=== PATIENT | female | born 1960 | race Caucasian/White ===

== ENCOUNTER 2018-06-13 07:35 | Outpatient (CLI) | payer OTHER, SELFPAY ==
[2018-06-13 09:46] LABS: ALT 38 U/L (12-78); AST 25 U/L (15-37); Alkaline Phosphatase 132 U/L (46-116); Bilirubin, Total 0.6 mg/dL (0.2-1.0); Cholesterol 158 mg/dL (50-200); HDL Cholesterol 44 mg/dL (40-60); LDL CHOLESTEROL 79 mg/dL (<100); Total Protein 7.3 g/dL (6.4-8.2); Triglyceride 264 mg/dL (30-150)
[2018-06-13 10:02] LABS: Bilirubin, Direct 0.11 mg/dL (0.00-0.20)
== END 2018-06-13 07:55 ==
PROVIDERS: PCP Family Medicine; Visit Provider Family Medicine
DX: E78.2 Mixed hyperlipidemia (principal)
CPT/HCPCS: 36415; 80061; 80076; 83721

== ENCOUNTER 2018-06-24 06:10 | Day surgery (SDC) | payer OTHER, SELFPAY ==
[2018-06-24 06:22] VITALS: BP 147/90; PULSE 73; RESP 14; TEMP 36; O2SAT 98
[2018-06-24] MEDS: Lactated Ringers 1,000 ML 30 ML IV (06:42)
--- NOTE | 2018-06-24 07:55 | W.PM.HP.N ---
Date of service: 06/24/18 Time of Service: 07:55 Assessment and Plan (1) Diverticulitis of large intestine without perforation or abscess with bleeding: Current visit: No Status: Resolved Recommended colonoscopy to confirm diverticulosis, rule out malignancy. I reviewed the procedure with Debora, discussed the risks of the procedure with her. All her questions were answered to her satisfaction.New Medications History of Present Illness Chief Complaint: Diverticulitis Narrative: 57 y/o female referred after recent episode of diverticulits. Treated with IV and PO abx with resolution of symptoms. Now doing well. She has no family history of colorectal cancer. Her last colonoscopy was about 5 years ago. Review of Systems Review of Systems All systems reviewed & are unremarkable except as noted in HPI and below Gastrointestinal Reports abdominal pain, Denies bloating, Denies change in bowel habits, Denies constipation, Reports cramping, Denies early satiety, Denies dyspepsia and Denies vomiting PFSH Family History Mother Diabetes Cerebrovascular accident Father Lymphoma Brother Myocardial infarction Brother Brain tumor Medical History Basal cell carcinoma (12/16/15) Diverticulitis Hyperlipidemia Social History household members: none lives independently: Yes number of children: 2 current occupation: [employer] current occupational exposures/hazards: Yes Smoking/Tobacco Use Status: Current every day alcohol intake: current alcohol intake frequency: a few times a week Alcohol type: beer and wine substance use type: does not use Surgical History Colonoscopy - [facility] Home Medications Medication Instructions Recorded Confirmed Type acetaminophen [Pain Relief] 1,000 mg PO QID PRN 11/02/15 06/24/18 History ibuprofen 800 mg PO TID PRN 11/02/15 06/24/18 History Allergies Allergy/AdvReac Type Severity Reaction Status Date / Time bacitracin Allergy Intermediate Skin Rash Verified 06/21/18 13:23 Sulfa (Sulfonamide Allergy RASH, Verified 06/21/18 13:23 Antibiotics) DIFFICULTY BREATHING Exam Const General: cooperative, healthy appearing and comfortable Nutritional Appearance: average body habitus [facility] Head: normocephalic and atraumatic Ears: hearing grossly normal bilaterally Face and sinus: normal facial exam Eyes General: appearance normal, both eyes and all related structures Pupils: PERRL EOM: EOM intact bilaterally Neck Neck: normal visual inspection, trachea midline and supple Chest Chest: normal inspection of the chest Resp Effort & Inspection: normal respiratory effort, able to speak in complete sentences, no audible wheezes, no cough and not labored Cardio Jugular venous pressure: no JVD Rate: regular rate Rhythm: regular rhythm GI Inspection: normal to inspection Palpation: soft, no guarding and nontender Neuro General: alert, awake and oriented x3 Cranial Nerves: CN's II-XI intact bilaterally Cognition: normal cognition Psych Appearance: grossly normal and well kempt Mental Status: mental status grossly normal Attitude: cooperative Judgment: judgment good
--- NOTE | 2018-06-24 08:07 | W.PM.DSUDISC ---
Discharge Plan Disposition Patient Disposition: HOME Condition: Good Discharge Details Reason For Visit: DIVERTICULITIS Attending Provider: Abel Heath Primary Care Provider: Rik Abebe Home Meds and New Rx's Prescriptions: Continue atorvastatin 40 MG tablet 40 mg PO HS 90 Days Qty: 90 RF: 3 ibuprofen 800 MG tablet 800 mg PO TID PRNRF: 0 acetaminophen [Pain Relief] 500 MG tablet 1,000 mg PO QID PRNRF: 0 Discontinued polyethylene glycol 3350 [Miralax] 17 GM powder in packet 17 g PO DAILY Qty: 255 RF: 0 bisacodyl [Dulcolax (bisacodyl)] 5 MG tablet,delayed release (DR/EC) 5 mg PO ONCE Qty: 4 RF: 0 Discharge Instructions Instructions: Colonoscopy (DC) Stand Alone Forms: Colonoscopy Post Instructions, Srini Hammond (DSU) Print Language: Belarusian Activity:: Activity as Tolerated Diet:: As Tolerated Discharge Orders Discharge Orders: Discharge Order (Routine); Ordered 06/24/18 Ordered By: Abel Heath Discharge Data Discharge Date/Time-TO BE ENTERED AT DEPARTURE: 06/24/18 09:34 Discharge Comment: NO ISSUES. PT ESCORTED HOME WITH FRIEND. DS: Diagnosis Discharge Diagnosis (1) Diverticulitis of large intestine without perforation or abscess with bleeding: Status: Resolved
[2018-06-24 09:05] VITALS: BP 132/84; PULSE 62; RESP 14; TEMP 36; O2SAT 99
--- NOTE | 2018-06-24 09:42 | W.COLOREPORT ---
Date of service: 06/24/18 Time of Service: 08:15 Colonoscopy Report Date of procedure: 06/24/18 Pre-op diagnosis general: Diverticuliltis Post-op diagnosis procedure note: other (1. Moderate Sigmoid Diverticulosis. 2. Grade II Hemorrhoids) Procedure: Colonoscopy to the Cecum Surgeon: Abel Heath Anesthesia proc note operative: MAC (Helen Ceja, REGIONAL MANAGER ASA 2, Mallampati II) Estimated blood loss (mL): 0 Pathology: none sent Complications: None Disposition: same day Indications: 57 y/o female referred after recent episode of diverticulits. Treated with IV and PO abx with resolution of symptoms. Now doing well. She has no family history of colorectal cancer. Her last colonoscopy was about 5 years ago. Diverticulitis of large intestine without perforation or abscess without bleeding - K57.32Recommended colonoscopy to confirm diverticulosis, rule out malignancy. I reviewed the procedure with Debora, discussed the risks of the procedure with her. All her questions were answered to her satisfaction. Prep: Miralax/Dulcolax (Prep quality: excellent) Findings: In examining the colon, from the cecum to the anus, the patient was noted to have some moderate sigmoid diverticulosis but no other pathology was identified. Procedure Description: The patient was seen in the day surgery waiting area. Her identification was confirmed, and procedure check. She was then brought to the procedure room. Monitoring for telemetry, blood pressure, oxygen saturation, and end tidal CO2 monitoring were applied. An appropriate time out was performed to confirm, identification, allergies, medication, procedure, was performed. Sedation was titrated for affect by the REGIONAL MANAGER; Once adequate sedation was achieved, I performed a inspection of the external perineum, and a digitial rectal examination. No significant external abnormalities were noted. On digital rectal examination, there was no blood, no masses, good rectal tone. I advanced the colonoscope from the anus to the cecum under direct visualization. The cecum was identified by the ileal-cecal valve, and the appendiceal orifice. The scope was then withdrawn in circumferential manner from the cecum to the rectum. In the colon there is noted to be moderate sigmoid diverticulosis. The scope was then withdrawn into the rectum, and retroflexed. No abnormalities were noted of the rectum, but there was grade 2 hemorrhoids present at the anorectal junction. The scope was then withdrawn, terminating the procedure. There were no complications during the procedure, and the patient tolerated the procedure well. She was returned to the day surgery recovery area in good condition. Plan: No evidence of malignancy or other abnormality other than diverticulosis seen in examining the colon from cecum to anus. No surgical interventions at this time recommended, and next screening colonoscopy in 10 years for colorectal cancer.
--- NOTE | 2018-06-24 09:46 | COLE_ITS ---
Date of service: 06/24/18 Time of Service: 08:15 Colonoscopy Report Date of procedure: 06/24/18 Pre-op diagnosis general: Diverticuliltis Post-op diagnosis procedure note: other (1. Moderate Sigmoid Diverticulosis. 2. Grade II Hemorrhoids) Procedure: Colonoscopy to the Cecum Surgeon: Abel Heath Anesthesia proc note operative: MAC (Helen Ceja, FREEZER UNLOADER ASA 2, Mallampati II) Estimated blood loss (mL): 0 Pathology: none sent Complications: None Disposition: same day Indications: 57 y/o female referred after recent episode of diverticulits. Treated with IV and PO abx with resolution of symptoms. Now doing well. She has no family history of colorectal cancer. Her last colonoscopy was about 5 years ago. Diverticulitis of large intestine without perforation or abscess without bleeding - K57.32Recommended colonoscopy to confirm diverticulosis, rule out malignancy. I reviewed the procedure with Debora, discussed the risks of the procedure with her. All her questions were answered to her satisfaction. Prep: Miralax/Dulcolax (Prep quality: excellent) Findings: In examining the colon, from the cecum to the anus, the patient was noted to have some moderate sigmoid diverticulosis but no other pathology was identified. Procedure Description: The patient was seen in the day surgery waiting area. Her identification was confirmed, and procedure check. She was then brought to the procedure room. Monitoring for telemetry, blood pressure, oxygen saturation, and end tidal CO2 monitoring were applied. An appropriate time out was performed to confirm, identification, allergies, medication, procedure, was performed. Sedation was titrated for affect by the FREEZER UNLOADER; Once adequate sedation was achieved, I performed a inspection of the external perineum, and a digitial rectal examination. No significant external abnormalities were noted. On digital rectal examination, there was no blood, no masses, good rectal tone. I advanced the colonoscope from the anus to the cecum under direct visualization. The cecum was identified by the ileal-cecal valve, and the appendiceal orifice. The scope was then withdrawn in circumferential manner from the cecum to the rectum. In the colon there is noted to be moderate sigmoid diverticulosis. The scope was then withdrawn into the rectum, and retroflexed. No abnormalities were noted of the rectum, but there was grade 2 hemorrhoids present at the anorectal junction. The scope was then withdrawn, terminating the procedure. There were no complications during the procedure, and the patient tolerated the procedure well. She was returned to the day surgery recovery area in good condition. Plan: No evidence of malignancy or other abnormality other than diverticulosis seen in examining the colon from cecum to anus. No surgical interventions at this time recommended, and next screening colonoscopy in 10 years for colorectal cancer.
== END 2018-06-24 09:34 | disposition home or self-care (01) ==
PROVIDERS: PCP Family Medicine; Visit Provider Surgery
PROC: 0DJD8ZZ Inspection of Lower Intestinal Tract, Via Natural or Artificial Opening Endoscopic (ICD-10-PCS; CPT 45378; principal; 2018-06-24 07:30)
DX: K64.1 Second degree hemorrhoids (principal); K57.30 Diverticulosis of large intestine without perforation or abscess without bleeding
CPT/HCPCS: 45378; NC

== ENCOUNTER 2018-08-18 15:48 | Outpatient (REF) | payer OTHER, SELFPAY ==
--- NOTE | 2018-08-18 11:30 | PAPFT_PTH ---
PATIENT: Debora Montgomery LOC: [facility] U#:[id number] AGE/SX: 57/F ROOM: RE08/18/[address]: WILMA Ivy : 1960 BED: DIS: 08/18/2018 SPEC #: [id number] RECD: 08/18/18 17:27 STATUS: SAVANAH REMorena #: [id number] LIZABETH: 08/18/18 11:[address]: Le Alvarez DEPT: COUNT INCLUDES THE [facility] Cytology RECD BY: Sandra Talley ENTERED: 08/18/18 17:27 SP TYPE: PAPFT OTHR DR: Rik Abebe DO Tissues: 1 - CX/ENDOCX FOR PAP SMEARS Procedures: PAP THIN PREP/UVM Screening HPV DNA PROBE Comments: [id number]
== END 2018-08-18 16:08 ==
LOC: LBN 15:48
PROVIDERS: PCP Family Medicine; Visit Provider Nurse Practitioner Family
DX: Z12.4 Encounter for screening for malignant neoplasm of cervix (principal); Z11.51 Encounter for screening for human papillomavirus (HPV)
CPT/HCPCS: 88142; 87624

== ENCOUNTER 2018-08-22 00:56 | Outpatient (CLI) | payer OTHER, SELFPAY ==
--- NOTE | 2018-08-22 10:03 | DI.MAMMO_ITS ---
SYMPTOM/DIAGNOSIS: SCREENING, Z12.31 MAMMOGRAM: 08/22 Mammograms were interpreted according to the usual protocol including computer analysis with CAD system, tomosynthesis and C view imaging. The breasts are of moderate density with fairly symmetrical distribution of fibroglandular tissue. Some focal asymmetric areas of radiodensity are seen bilaterally with no gross interval change in appearance in comparison with examinations including Aug 2017. No new mass or clumped microcalcification seen. CONCLUSION: No specific evidence of malignancy at this time. Routine screening examinations are suggested at yearly intervals in this age group according to the ACS/ACR guidelines. Category 1, breast density category B. MQSA ASSESSMENT OF FINDINGS: Negative. Category 1. Patient will receive a letter notifying them of these results. BI-RADS category B. There are scattered areas of fibroglandular density.
== END 2018-08-22 01:16 ==
PROVIDERS: PCP Family Medicine; Visit Provider Nurse Practitioner Family
DX: Z12.31 Encounter for screening mammogram for malignant neoplasm of breast (principal)
CPT/HCPCS: 77063; 77067

== ENCOUNTER 2019-08-08 10:57 | Outpatient (CLI) | payer OTHER, SELFPAY ==
--- NOTE | 2019-08-08 10:45 | DI.RAD_ITS ---
EXAM: XR KNEE LT 2V AP,LAT INDICATION: pain. COMPARISON: No exams were available for comparison TECHNIQUE: 2D digital imaging was performed. FINDINGS: There is mild narrowing of the medial femorotibial joint space and mild periarticular spurring. Ther e is also spurring at the articular aspect of the patella. No joint effusion IMPRESSION: Mild to moderate degenerative changes.
== END 2019-08-08 11:17 ==
PROVIDERS: PCP Family Medicine; Visit Provider Orthopaedic Surgery
DX: M25.562 Pain in left knee (principal); M17.12 Unilateral primary osteoarthritis, left knee
CPT/HCPCS: 73560

== ENCOUNTER 2019-08-10 06:59 | Outpatient (CLI) | payer OTHER, SELFPAY ==
--- NOTE | 2019-08-10 11:25 | DI.MRI_ITS ---
EXAM: MR LOWER JOINT LT WO CLINICAL HISTORY: loose body, lt knee pain, bone spur, r/o meniscus tear. TECHNIQUE: Multiplanar multisequence MRI was performed. COMPARISON: No exams were available for comparison FINDINGS: Bony signal appears within normal limits except for a few small focal areas of subchondral abnormal s ignal in patella, femur and tibia consistent with degenerative changes. There is marked thinning of the articular cartilage of the medial patellar facet with moderate thinning of trochlear articular ca rtilage and lateral patellar facet cartilage. There is moderate thinning of articular cartilage at t he medial and lateral tibiofemoral joints, most prominent in the central portion of the medial tibiof emoral joint. There is a small knee joint effusion. There is an approximately 3 x 2 cm in diameter Wills's cyst. There is abnormal signal in the posterior horn of the medial meniscus with possible inferior surfacin g nondisplaced tear. Lateral meniscus appears intact. Cruciate ligaments appear intact. No signifi cant collateral ligament injury seen. Apart from the aforementioned degenerative changes of the patellofemoral joint, extensor mechanism is unremarkable. IMPRESSION: Degenerative changes with marked articular cartilage thinning of the medial patellofemoral joint and to a lesser degree the medial and lateral tibiofemoral joints. Suspect nondisplaced posterior horn medial meniscal tear.
== END 2019-08-10 07:19 ==
PROVIDERS: PCP Family Medicine; Visit Provider Orthopaedic Surgery
DX: M25.562 Pain in left knee (principal); M23.42 Loose body in knee, left knee; M17.12 Unilateral primary osteoarthritis, left knee; M25.462 Effusion, left knee; M71.22 Synovial cyst of popliteal space [Baker], left knee
CPT/HCPCS: 73721

== ENCOUNTER 2019-08-24 12:49 | Outpatient (CLI) | payer OTHER, SELFPAY ==
--- NOTE | 2019-08-24 14:03 | W.PREOPHP ---
Date of service: 08/24/19 Assessment and Plan Assessment and plan (1) Internal derangement of left knee: Status: Acute Assessment and plan: Left knee arthroscopy. Details of surgery were discussed with patient as well as risks and pertinent anatomy. All questions were answered. History of Present Illness History of Present Illness Chief Complaint: Left knee pain Narrative: Debora is a 58-year-old female who comes in today for a preop history and physical for a left knee arthroscopy. She has been then with left knee pain for a few months now, and has been persistent despite home exercising. She does not remember any specific trauma to the start of his knee pain, but feels it mostly posteriorly. She also has more pain whenever she is squatting or kneeling, flexing the knee beyond 90 degrees. Also bothers her with going up or down stairs. She works for [employer] and is on her feet a lot during the day, and by the day she has pretty significant knee pain. An x-ray and MRI revealed some bone spurs in the posterior aspect of the knee as well as a Wills's cyst. She was also given an injection in the knee 1-2 weeks ago which really did help her, but only for about 2-[address] this point [address] Del Toro does offer a left knee arthroscopy, and Debora is anxious to proceed. Pertinent Surgical Information Debora does have a history of hyperlipidemia, but has discontinued medical treatment on her own as she did not like the way the medication made her feel. Patient denies history of CVA, TN, angina, asthma, COPD, renal or liver disorders, hepatitis, bleeding disorders, diabetes, immune or thyroid disorders. She has no history of previous general anesthesia surgeries. Review of Systems Constitutional Constitutional: Denies fever(s) ENT Ears, Nose, Mouth, and Throat: Denies dizziness and Denies sore throat Cardiovascular Cardiovascular: Denies chest pain, Denies palpitations and Denies dyspnea Respiratory Respiratory: Denies cough and Denies dyspnea Gastrointestinal Gastrointestinal: Denies abdominal pain, Denies melena, Denies hematochezia, Denies diarrhea, Denies nausea and Denies vomiting Genitourinary Genitourinary: Denies hematuria and Denies dysuria Neurologic Neurologic: Denies dizziness Endocrine Endocrine: Denies palpitations [facility] Medical History Basal cell carcinoma (12/16/15) left lower eyelid Diverticulitis Hyperlipidemia Surgical History (Updated 08/24/19 @ 14:07 by FRANCIS Dior) Colonoscopy - MAC (06/24/18) Dr Heath, results - diverticulitis, repeat 10 years Status post excisional biopsy (Acute) Left eye (skin lesion) Social History (Updated 03/02/19 @ 15:14 by Antonella Esteban LPN) Smoking/Tobacco Use Status: Current every day Tobacco Type: cigarettes Tobacco: How many years used: 20 Alcohol Intake: current Alcohol Intake frequency: a few times a week Alcohol type: beer and wine Drug use: Never Substance use type: does not use Household members: none Housing: house Number of Children: 2 current occupation: [employer] Current gender identity: female What is your relationship status?: Panel score (0-1 are the most socially isolated patients): 0 What type of physical activity do you participate in: other Details: physically active daily Seatbelt use: always Drive intox or ride w/intox 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 truck 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: No Working smoke detector in home: Yes Fire extinguisher in home: Yes Carbon monox detector in home: Yes Do you feel safe at home: Yes Do you feel safe in your relationship?: Yes History History 2 Para 2 Hx # Term Pregnancies Multiple births Hx # Pregnancies Ectopic pregnancies AB induced Hx Number of Living Children AB spontaneous Meds Home Medications and Allergies Home Medications Medication Instructions Recorded Confirmed Type acetaminophen [Pain Relief] 1,000 mg PO QID PRN 11/02/15 08/24/19 History losartan 25 mg tablet 25 mg PO DAILY #90 tab-cap 04/05/19 08/24/19 Rx Allergies Allergy/AdvReac Type Severity Reaction Status Date / Time atorvastatin [From Lipitor] Allergy Severe coughing Verified 08/24/19 13:05 bacitracin Allergy Intermediate Skin Rash Verified 08/24/19 13:05 Sulfa (Sulfonamide Allergy RASH, Verified 08/24/19 13:05 Antibiotics) DIFFICULTY BREATHING Exam HENMT Head: normocephalic and atraumatic General nose exam: no nasal discharge Throat: uvula midline and no uvular edema Other: soft palate rises symmetrically, no erythema Eyes Conjunctivae: conjunctivae normal Sclera: sclerae normal Pupils: PERRL Resp Effort & Inspection: normal respiratory effort Auscultation: clear to auscultation bilaterally and no wheezes Cardio Rate: regular rate Rhythm: regular rhythm Heart Sounds: S1 normal, S2 normal and no murmurs GI Palpation: soft, no hepatosplenomegaly and nontender Auscultation: normal bowel sounds
== END 2019-08-24 13:09 ==
PROVIDERS: PCP Family Medicine; Visit Provider Orthopaedic Surgery
DX: M23.92 Unspecified internal derangement of left knee (principal); Z01.818 Encounter for other preprocedural examination
CPT/HCPCS: NC

== ENCOUNTER 2019-08-28 05:57 | Day surgery (SDC) | payer OTHER, SELFPAY ==
[2019-08-24 13:04] VITALS: BP 130/88; PULSE 84; RESP 16; TEMP 37.1; O2SAT 98
[2019-08-28] VITALS (8 sets, daily range): BP systolic 90–130; BP diastolic 50–88; PULSE 56–84; RESP 14–19; TEMP 36.2–37.1; O2SAT 93–98
[2019-08-28] MEDS: Lactated Ringers 1,000 ML 80 ML IV (07:14)
[2019-08-28] MEDS: ceFAZolin 1 GM/50 ML BAG IVPB (07:30)
[2019-08-28] MEDS: Bupivacaine 0.5% Pres-Free 30 ML VIAL (08:43)
--- NOTE | 2019-08-28 09:02 | PDOC.DSDIS_ITS ---
Discharge Plan Disposition Patient Disposition: HOME Condition: Good Discharge Details Reason For Visit: Arthroscopy L knee Attending Provider: Sae Del Toro Primary Care Provider: Rik Abebe Home Meds and New Rx's Prescriptions: New ibuprofen 800 mg tablet 800 mg PO TID Qty: 30 RF: 0 hydrocodone-acetaminophen 5-325 mg tablet 1 tab PO Q6H PRN (Reason: pain) Qty: 20 RF: 0 Continued losartan 25 mg tablet 25 mg PO DAILY Qty: 90 RF: 3 acetaminophen [Pain Relief] 500 MG tablet 1,000 mg PO QID PRNRF: 0 Discontinued ibuprofen 200 mg Capsule 800 mg PO Q6H PRNRF: 0 Discharge Instructions Additional Instructions: Crutches to walk. May put as much weight on L leg as your pain allows. Discontinue crutches when you can step fully on L leg without pain. Keep dressings dry and intact for 48 hours. After 48 hours, may remove dressings, shower, and get incisions wet. Leave incisions uncovered when they are dry and sealed. Leave cryocuff on L knee continuously overnite tonite. Tomorrow, start to use 4 times/day for 1 hour each time to decrease swelling and pain. Outpatient physical therapy on Wednesday for rehab L knee post-arthroscopic limited synovectomy. Follow up with in 2 weeks. Take ibuprofen 3 times/day as prescribed, for 10 days. Take hydrocodone for breakthru pain, if needed. Referrals: Sae Del Toro MD [ [facility] STAFF PHYSICIAN] - (f/u in 2 weeks.) Equipment/Supplies: Partial Weight Bearing Crutches Activity:: Activity as Tolerated Remove Dressings/Wound Care:: 48 hours Shower/Bathe:: 48 hours Diet:: As Tolerated Discharge Orders Discharge Orders: Discharge Order (Routine); Ordered 08/28/19 Ordered By: Sae Del Toro DS: Diagnosis Discharge Diagnosis (1) Internal derangement of left knee: Status: Acute
[2019-08-28] MEDS: fentaNYL 100 MCG/2 ML VIAL IVP (09:35)
[2019-08-28] MEDS: HYDROcodone 5/Acetaminophen 325 TAB PO (10:51)
--- NOTE | 2019-08-28 15:53 | ROE_ITS ---
DATE OF PROCEDURE: August 28, 2019 PREOPERATIVE DIAGNOSIS: Internal derangement, left knee. POSTOPERATIVE DIAGNOSIS: Same, due to synovitis. 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 PROCEDURE: Arthroscopy of her left knee with limited synovectomy. ANESTHESIA: General, Manish Nielsen CRNA SURGEON: Sae Del Toro M.D. INDICATIONS: This is a 58-year-old white female with a several month history of left knee pain. She does not have any specific trauma. 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 She did not respond to inj ection and anti-inflammatory medications. X-ray did not reveal any significant OA, but showed some p osterior spurs on the tibia. An MRI scan was obtained and it showed a small Wills's cyst, no signifi cant effusion; no evidence of any meniscal injury. At this point she has persistent pain with no farhat ar-cut diagnosis. She has not responded to conservative treatment. Arthroscopy was therefore recomm ended to help arrive at a diagnosis that would guide further treatment to alleviate her pain. The ri sks and complications of the procedure were explained to the patient in detail preoperatively. PROCEDURE: The patient was taken to the Operating Room on 08/28/19. She was placed supine on the op erating table and a general anesthetic administered. Her left thigh was placed in the arthroscopic l eg samuels and the left knee was prepped and draped free in the usual sterile fashion. Arthroscopic p ortals were established. The left knee was inflated with normal saline solution and routine arthrosc opic examination proceeded. Intraoperative photographs were obtained to document findings. Upon entering the medial compartment she was found to have some mild OA of the medial compartment, mo stly on the femoral side she had some grade 2 OA and grade 1 on the tibial side. The medial meniscus , however, was intact; it was probed thoroughly from anterior to posterior and no occult tears were i dentified. A very limited chondroplasty of the medial femoral condyle was then performed using the 9 0-degree high radio frequency electrocautery want. The intercondylar notch showed intact anterior and posterior cruciate ligaments. The lateral compartment showed a normal lateral meniscus, stable to probing under direct vision, and no evidence of osteoarthritis of the lateral compartment. The suprapatellar pouch had mild synovial hypertrophy and hyperemia. There was additional synovial h yperemia and hypertrophy in the medial gutter, which obscured a good view of the medial gutter. Ther e was a medial patellar plica present as well. Using the 90-degree high radio frequency electrocaute ry wand, the hypertrophic and hyperemic synovium was ablated, restoring the volume of the medial gutt er and suprapatellar pouch. No loose bodies were seen on thorough examination of the knee with the a rthroscope. Patellar tracking appeared to be anatomic. There was no evidence of any damage to the a rticular cartilage on the trochlea of the femur. There was evidence of some grade 2 OA of the unders urface of the patella, mainly the medial facet. At this point the knee was copiously irrigated with saline solution using the arthroscopy pump until the outflow was clear. 20 cc's of 0.5% Marcaine ever ution, along with 4 mg of morphine, were instilled into the left knee and all instruments were remove d from the knee. The arthroscopy portals were infiltrated with 0.5% Marcaine solution and were appro ximated with interrupted #4-0 nylon sutures. Sterile dressings were applied, followed by a light com pressive dressing to the left knee. The patient's anesthesia was reversed without complications. Bl ood loss was minimal. She was discharged to the recovery room in good condition. The patient was later discharged home from the Day Surgery Unit when fully recovered from her general anesthesia. She was given instructions to elevate her left knee on 1 to 2 pillows as much as possib le for the next 48 hours. She is to use crutches to walk, weightbearing as tolerated to the left kne e. She may discontinue the crutches when she can step fully on her left leg without pain. She is to keep the dressings clean and dry for 48 hours. After 48 hours she can remove her dressings, shower and get her incisions wet. She can leave the incisions uncovered when they are dry and sealed. She is to apply a CryoCuff to the left knee continuously overnight tonight. Tomorrow she will start to u se the CryoCuff four times a day for an hour each time. She will continue ibuprofen 800 mg p.o. t.i. d. for the next ten days. She was given a prescription for breakthrough pain of Hydrocodone with APA P 5/325, one tablet every six hours, if needed. She will begin outpatient physical therapy on Wednesday , 09/01/19 for rehab of her left knee post-arthroscopy. She will follow-up with me in two weeks.
== END 2019-08-28 12:29 | disposition home or self-care (01) ==
PROVIDERS: PCP Family Medicine; Visit Provider Orthopaedic Surgery
PROC: (CPT 29870; principal; 2019-08-28 07:30)
DX: M23.92 Unspecified internal derangement of left knee (principal); M65.9 Synovitis and tenosynovitis, unspecified; M17.12 Unilateral primary osteoarthritis, left knee; M67.52 Plica syndrome, left knee
CPT/HCPCS: 29875; E0114; J0690; J1100; J1885; J2250; J2405; J3010

== ENCOUNTER 2019-09-05 08:03 | Outpatient (CLI) | payer OTHER, SELFPAY ==
[2019-09-05 09:06] LABS: ALT 63 U/L (14-59); AST 23 U/L (15-37); Albumin 3.8 g/dL (3.4-5.0); Alkaline Phosphatase 126 U/L (46-116); Anion Gap 10.4 mmol/L (3-11); BUN 20 mg/dL (7-18); Bilirubin, Total 0.5 mg/dL (0.2-1.0); CO2 26.6 mmol/L (21.0-32.0); CREATININE 0.83 mg/dL (0.55-1.02); Calcium 8.8 mg/dL (8.5-10.1); Calculated LDL 154 mg/dL; Chloride 106 mmol/L (98-107); Cholesterol 269 mg/dL (<200); Glucose 97 mg/dL (74-106); HDL Cholesterol 41 mg/dL (40-60); Potassium 4.6 mmol/L (3.5-5.1); Sodium 143 mmol/L (136-145); Total Protein 7.1 g/dL (6.4-8.2); Triglyceride 374 mg/dL (<150)
== END 2019-09-05 08:23 ==
PROVIDERS: PCP Family Medicine; Visit Provider Family Medicine
DX: E78.5 Hyperlipidemia, unspecified (principal)
CPT/HCPCS: 36415; 80053; 80061

== ENCOUNTER 2019-09-18 01:01 | Outpatient (CLI) | payer OTHER, SELFPAY ==
--- NOTE | 2019-09-18 15:29 | DI.MAMMO_ITS ---
EXAM: MG MAMMO SCREENING CLINICAL HISTORY: screening, Z12.39. TECHNIQUE: Full field digital CC and MLO mammographic images were obtained with 3D tomosynthesis and utilizing computer aided detection (CAD). COMPARISON: [id number]. FINDINGS: Breast density: B Masses/Architectural Distortion: None seen. Microcalcifications: No suspicious pleomorphic-type calcifications are seen. Skin Thickening/Nipple Retraction: None. Axilla: Unremarkable. IMPRESSION: 1. BI-RADS category 1, negative. No significant interval change with no specific features of maligna ncy noted. 2. Unless there is more urgent need, screening mammography is recommended, as per [employer] guidelines. BI-RADS Cat 1 - Negative Breast Density - Category B - Scattered areas of fibroglandular density A negative radiographic report should not delay biopsy if a dominant or clinically suspicious mass is present. Up to ten percent of cancers are not identified on mammography. A negative report may reinforce clinical impression. Adenosis and dense breasts may obscure an underlying neoplasm. False positive reports average 6 to 10%. Patient will receive a letter notifying them of these results.
== END 2019-09-18 01:21 ==
PROVIDERS: PCP Family Medicine; Visit Provider Nurse Practitioner Family
DX: Z12.31 Encounter for screening mammogram for malignant neoplasm of breast (principal)
CPT/HCPCS: 77063; 77067

== ENCOUNTER 2019-10-31 03:41 | Emergency (ER) | payer OTHER, SELFPAY ==
[2019-10-31 03:45] VITALS: BP 153/89; PULSE 86; RESP 16; TEMP 36.6; O2SAT 98
--- NOTE | 2019-10-31 03:50 | ED.GENADUL_ITS ---
Discharge Plan Disposition Patient Disposition: HOME Condition: Good Discharge Details Chief Complaint: Abd Prob Clinical Impression: Sigmoid diverticulitis Primary Care Provider: Rik Abebe ED Provider: Issa Yip Meds and New Rx's Prescriptions: New amoxicillin-pot clavulanate 875-125 mg tablet 1 tab PO TID Qty: 30 RF: 0 Continued rosuvastatin 5 mg tablet 5 mg PO DAILY Qty: 30 RF: 0 losartan 25 mg tablet 25 mg PO DAILY Qty: 90 RF: 3 acetaminophen [Pain Relief] 500 MG tablet 1,000 mg PO QID PRNRF: 0 ibuprofen 800 mg tablet 800 mg PO TID Qty: 30 RF: 0 Discharge Instructions Instructions: Amoxicillin/Clavulanate Potassium (By mouth), Diverticulitis (ED), Diverticulitis Diet (ED) Additional Instructions: Please use Tylenol alternating with Motrin for your pain. Augmentin 3 times a day as directed. You should have follow-up with primary care in 2 to 3 days for reevaluation. Return to emergency department if you develop mental status changes, vomiting, or worsening abdominal pain, other concerns. Referrals: Rik Abebe DO [Primary Care Provider] - Medical Decision Making Patient with pretty significant tenderness in the left lower quadrant. Likely is diverticulitis but because of the degree of tenderness will scan to rule out perforation or abscess. She otherwise looks well. IV established and fluids started. Toradol given for pain. Laboratory studies sent. Laboratory studies with normal CBC. Chemistries are fine. Urine is negative. CT scan confirms sigmoid diverticulitis without perforation or abscess. Repeat exam continues to show left lower quadrant tenderness. She does not wish to be admitted however. She also declines further pain medication. We will give a dose of Unasyn and then start Augmentin. Will need follow-up with primary care in 48 hours for recheck. Return to ED if worsening pain, vomiting, mental status changes, other concerns problems. Lab Data Lab results reviewed: Yes I reviewed the patient's lab results. HPI General Mode of arrival: ambulatory . Date/Time Provider Initiated Documentation: 10/31/19 03:50 . Limitations to Documentation: no limitations . Information obtained by: patient and RN notes reviewed . HPI Narrative: Patient presents to ED with worsening left lower quadrant abdominal pain. Symptoms started about 36 hours ago. She denies fever. She denies nausea vomiting or diarrhea. She denies urinary symptoms. There is no radiation of the pain. Appetite is okay. Pain feels similar to previous episode of diverticulitis. Related Data Home Medications Medication Instructions Recorded Confirmed acetaminophen [Pain Relief] 1,000 mg PO QID PRN 11/02/15 10/31/19 losartan 25 mg tablet 25 mg PO DAILY #90 tab-cap 04/05/19 10/31/19 ibuprofen 800 mg PO TID #30 tab 08/28/19 10/31/19 rosuvastatin 5 mg tablet 5 mg PO DAILY #30 tab 09/05/19 10/31/19 amoxicillin-pot clavulanate 1 tab PO TID #30 tab 10/31/19 Previous Rx's Medication Instructions Recorded losartan 25 mg tablet 25 mg PO DAILY #90 tab-cap 04/05/19 ibuprofen 800 mg PO TID #30 tab 08/28/19 rosuvastatin 5 mg tablet 5 mg PO DAILY #30 tab 09/05/19 amoxicillin-pot clavulanate 1 tab PO TID #30 tab 10/31/19 Allergies Allergy/AdvReac Type Severity Reaction Status Date / Time atorvastatin [From Lipitor] Allergy Severe coughing Verified 10/31/19 03:47 bacitracin Allergy Intermediate Skin Rash Verified 10/31/19 03:47 Sulfa (Sulfonamide Allergy RASH, Verified 10/31/19 03:47 Antibiotics) DIFFICULTY BREATHING General Stated Complaint: Abd Prob JEAN PUAL: 3 Review of Systems Narrative: As documented in HPI otherwise negative as below. Const: no fever, chills, weakness Resp: no cough, SOB, pleuritic pain CV: no CP, diaphoresis, edema, syncope GI: abdominal pain; no nausea, vomiting, diarrhea Neuro: no headache, numbness, focal weakness, confusion [facility] Medical History Basal cell carcinoma (12/16/15) left lower eyelid Diverticulitis Hyperlipidemia Hypertension (Chronic) Surgical History Colonoscopy - MAC (06/24/18) Dr Heath, results - diverticulitis, repeat 10 years Status post excisional biopsy (Acute) Left eye (skin lesion) Social History Smoking/Tobacco Use Status: Current every day Tobacco Type: cigarettes Tobacco: How many years used: 20 Alcohol Intake: current Alcohol Intake frequency: a few times a week Alcohol type: beer and wine Drug use: Never Substance use type: does not use Household members: none Housing: house Number of Children: 2 current occupation: [employer] Current gender identity: female What is your relationship status?: Panel score (0-1 are the most socially isolated patients): 0 What type of physical activity do you participate in: other Details: physically active daily Seatbelt use: always Drive intox or ride w/intox 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 Blood pressure elevated. Other vitals normal. Room air pulse oximetry normal. Const: WDWN female in NAD. HEENT: NC/AT. Normal facial exam. Eyes: Normal conjunctiva and sclera. Neck: Supple. Trachea midline. Lungs: Normal respiratory effort. Lungs are clear. Cor: RRR without murmur/gallop. Good radial pulses. GI: Soft and nondistended. Tender in the left lower quadrant with voluntary guarding. No rebound. Back: No CVAT. Neuro: A+O x 3. CN grossly in tact. Good strength and no focal deficit. Ext: No C/C/E. Skin: Warm and dry without rash. Course Vital Signs Vital signs: Vital Signs Temperature 97.9 F 10/31/19 03:45 Pulse 86 10/31/19 03:45 Respiratory Rate 16 10/31/19 03:45 Blood Pressure 153/89 H 10/31/19 03:45 Pulse Oximetry 98 10/31/19 03:45 Temperature 97.9 F 10/31/19 03:45 Temperature Source Skin 10/31/19 03:45 Pulse 86 10/31/19 03:45 Respiratory Rate 16 10/31/19 03:45 Respiratory Effort Non-Labored 10/31/19 03:48 Blood Pressure 153/89 H 10/31/19 03:45 Pulse Oximetry 98 10/31/19 03:45 Pain Level 4 10/31/19 03:48
[2019-10-31] MEDS: Ketorolac 30 MG/ML VIAL IVP (04:16)
[2019-10-31] MEDS: Lactated Ringers 1,000 ML 125 ML IV (04:16)
[2019-10-31 04:20] LABS: Abs Immature Grans 0.02 k/cumm (0.0-0.09); Absolute Basophil Count 0.04 k/cumm (0.0-0.2); Absolute Eosinophil Count 0.14 k/cumm (0.0-0.7); Absolute Lymphocyte Count 1.54 k/cumm (1.2-3.4); Absolute Monocyte Count 0.94 k/cumm (0.11-0.7); Absolute Neutrophil Count 7.55 k/cumm (1.2-6.7); Basophils % 0.4; Eosinophils % 1.4; HCT 38.6 % (36.0-46.0); HGB 13.4 g/dL (12.0-15.5); Immature Grans % 0.2 %; Lymphocytes % 15.1; Mean Corp. HGB Concentration 34.7 g/dL (32.0-36.0); Mean Corpuscular Hemoglobin 31.8 pg (27.0-33.0); Mean Corpuscular Volume 91.5 fL (80-95); Monocytes % 9.2; Neutrophils % 73.7; Platelet Count 288 x1000/uL (130-400); RBC 4.22 m/cumm (4.00-5.20); RBC Distribution Width 12.6 % (11.7-14.6); White Blood Cell Count 10.23 k/cumm (4.4-10.8)
[2019-10-31 04:21] LABS: Bilirubin Negative (Negative); Blood Trace-lysed (Negative); Clarity Sl Cloudy (Clear); Glucose Negative (Negative); Ketones Negative (Negative); Leukocyte Esterase Negative (Negative); Nitrite Negative (Negative); Specific Gravity 1.025 (1.005-1.025); Urobilinogen 0.2 EU/dL (Up TO 0.2); pH 5.5 (5-8)
[2019-10-31 04:29] LABS: Bacteria Moderate HPF (Negative); C & S Indicated? No/Sq. Contamination; Epithelial Cells Moderate HPF (Negative); RBC 0-2 HPF (0-2)
[2019-10-31 04:34] LABS: ALT 44 U/L (14-59); AST 19 U/L (15-37); Albumin 3.7 g/dL (3.4-5.0); Alkaline Phosphatase 123 U/L (46-116); Anion Gap 10.8 mmol/L (3-11); BUN 17 mg/dL (7-18); Bilirubin, Total 0.5 mg/dL (0.2-1.0); CO2 24.2 mmol/L (21.0-32.0); CREATININE 0.71 mg/dL (0.55-1.02); Calcium 8.2 mg/dL (8.5-10.1); Chloride 105 mmol/L (98-107); Glucose 119 mg/dL (74-106); Sodium 140 mmol/L (136-145); Total Protein 7.2 g/dL (6.4-8.2)
--- NOTE | 2019-10-31 04:44 | DI.CT_ITS ---
EXAM: CT ABDOMEN PELVIS W CLINICAL HISTORY: LLQ tenderness TECHNIQUE: POST IV CONTRAST. WITHOUT ORAL CONTRAST. COMPARISON: ABD PELVIS WITH CONTRAST from 04/04/2018 FINDINGS: The heart size is normal. The lung bases are clear. The liver, gallbladder, spleen and kidneys are u nremarkable. The pancreas is somewhat atrophic. The right adrenal is normal. There is some promine nce of the left adrenal gland which appears unchanged when compared with the previous exam. There is diverticulosis seen throughout the colon, most prominent in the descending colon. There is inflamma tion around the lower descending colon, consistent with diverticulitis. There is no evidence of absc ess, perforation or free air. The appendix appears normal. There is a small amount of free fluid i nferiorly in the pelvis. The bladder, uterus and ovaries are unremarkable. The aorta is normal in d iameter and shows mild calcification. There are mild degenerative changes in the lumbar spine. IMPRESSION: Moderate sigmoid diverticulitis. No evidence of abscess or perforation.
[2019-10-31] MEDS: Omnipaque 350 MG/ML 100 ML BTL IJ (04:49)
--- NOTE | 2019-10-31 05:04 | DI.VRAD_ITS ---
PROCEDURE INFORMATION: Exam: CT Abdomen And Pelvis With Contrast Exam date and time: 10/31/2019 4:41 AM Age: 58 years old Clinical indication: Abdominal pain; Localized; Left lower quadrant (llq); Patient HX: Llq pain and tenderness, HX of diverticulitis TECHNIQUE: Imaging protocol: Computed tomography of the abdomen and pelvis with intravenous contrast. Radiation optimization: All CT scans at this facility use at least one of these dose optimization techniques: automated exposure control; mA and/or kV adjustment per patient size (includes targeted exams where dose is matched to clinical indication); or iterative reconstruction. Contrast material: OMNIPAQUE 350; Contrast volume: 100 ml; Contrast route: IV RAC; COMPARISON: CT ABD PELVIS WITH CONTRAST 04/04/2018 12:20 PM FINDINGS: Liver: Normal. No mass. Gallbladder and bile ducts: Normal. No calcified stones. No ductal dilation. Pancreas: Fatty infiltrated pancreas incidentally noted Spleen: Normal. No splenomegaly. Adrenals: Normal. No mass. Kidneys and ureters: Normal. No hydronephrosis. Stomach and bowel: Sigmoid diverticulitis noted. Degree of inflammation is mild to moderate. No abscess or free air.. Appendix: No evidence of appendicitis. Intraperitoneal space: Trace free fluid is present which is nonspecific but may reflect physiologic fluid or rupture of an ovarian cyst or follicle. Vasculature: Unremarkable. No abdominal aortic aneurysm. Lymph nodes: Unremarkable. No enlarged lymph nodes. Bladder: Unremarkable as visualized. Reproductive: Unremarkable as visualized. Bones/joints: Unremarkable. No acute fracture. Soft tissues: Unremarkable. IMPRESSION: 1. Sigmoid diverticulitis noted. Degree of inflammation is mild to moderate. No abscess or free air.. 2. Trace free pelvic fluid. Dictated and Authenticated by: Joel Vila MD. Ordering:MARTY Parsons MD
[2019-10-31] MEDS: AMPICILLIN/SULBACTAM 3 GM in Normal Saline 100 ML IVPB (05:20)
[2019-10-31 05:55] VITALS: BP 109/67; PULSE 69; RESP 16; O2SAT 97
[2019-10-31 06:53] LABS: Lipase 58 U/L (73-393)
== END 2019-10-31 05:50 | disposition home or self-care (01) ==
PROVIDERS: Emergency Provider Emergency Medicine; PCP Family Medicine
DX: K57.32 Diverticulitis of large intestine without perforation or abscess without bleeding (principal); I10 Essential (primary) hypertension
CPT/HCPCS: 36415; 80053; 83690; 96361; 96365; 96375; 99285; 74177; 81003; 81015; 85025; 99284; J0295; J1885; J3490

== ENCOUNTER 2019-11-08 02:28 | Outpatient (CLI) | payer OTHER, SELFPAY ==
--- NOTE | 2019-11-08 14:49 | DI.MRI_ITS ---
EXAM: MR LOWER JOINT LT WO CLINICAL HISTORY: LEFT KNEE PAIN S/P ARTHROSCOPY 08/28/19. TECHNIQUE: Multiplanar multisequence MRI was performed. COMPARISON: MR LOWER JOINT LT WO from 08/10/2019 FINDINGS: Ligaments: The anterior and posterior cruciate ligaments are intact. The lateral collateral ligament is intact. There is thickening and mild increased signal in the proximal medial collateral ligament . There is fluid seen around the ligament. Findings are consistent with an MCL sprain. The medial and lateral retinacula are intact. Extensor mechanism: Intact. Menisci: Tear of the body and posterior horn of the medial meniscus. Degeneration in the lateral men iscus. Articular cartilage: There is loss of the articular cartilage in the medial femorotibial joint space and the medial aspect of the patellofemoral joint. Bones: Subchondral edema in the medial femorotibial joint likely reflecting degenerative changes. Pe riarticular spurring seen both in the medial and lateral femorotibial joint and the patellofemoral mary int. No evidence of an occult fracture or avascular necrosis. Joint: Large joint effusion. Moderate popliteal cyst. Muscles: Within normal limits. IMPRESSION: 1. Tear of the body and posterior horn of the medial meniscus. 2. MCL sprain. 3. Marked degenerative changes in the medial femorotibial joint space and the patellofemoral joint. 4. Joint effusion and popliteal cyst.
== END 2019-11-08 02:48 ==
PROVIDERS: PCP Family Medicine; Visit Provider Student in an Organized Health Care Education/Training Program
DX: M25.562 Pain in left knee (principal); S83.242A Other tear of medial meniscus, current injury, left knee, initial encounter; S83.412A Sprain of medial collateral ligament of left knee, initial encounter; M17.12 Unilateral primary osteoarthritis, left knee; M25.462 Effusion, left knee; M71.22 Synovial cyst of popliteal space [Baker], left knee
CPT/HCPCS: 73721

== ENCOUNTER 2019-11-22 14:30 | Outpatient (CLI) | payer OTHER, SELFPAY ==
--- NOTE | 2019-11-22 13:30 | DI.RAD_ITS ---
EXAM: XR STANDING ALIGNMENT AND XR KNEE LEFT COMPLETE CLINICAL HISTORY: PAIN. TECHNIQUE: 2D digital imaging was performed. COMPARISON: No exams were available for comparison FINDINGS: BONES: No acute fracture is present. No bony destructive lesion is seen. The right lower extremity m easures 86.3 cm. JOINTS: There is mild narrowing of the medial femorotibial joint space. Mild periarticular spurring is seen in both the medial femorotibial joint and the patellofemoral joint. There is an enthesophyte at the superior patella. There is a small joint effusion. SOFT TISSUE: Normal. IMPRESSION: Degenerative changes of the left knee.
== END 2019-11-22 14:50 ==
PROVIDERS: PCP Family Medicine; Visit Provider Student in an Organized Health Care Education/Training Program
DX: M17.12 Unilateral primary osteoarthritis, left knee (principal); M25.462 Effusion, left knee; M25.562 Pain in left knee
CPT/HCPCS: 73562; 77073

== ENCOUNTER 2019-12-15 08:49 | Outpatient (CLI) | payer OTHER, SELFPAY ==
[2019-12-15 09:43] LABS: HCT 43.5 % (36.0-46.0); HGB 14.7 g/dL (12.0-15.5); Mean Corp. HGB Concentration 33.8 g/dL (32.0-36.0); Mean Corpuscular Hemoglobin 30.9 pg (27.0-33.0); Mean Corpuscular Volume 91.4 fL (80-95); Mean Platelet Volume 10.2 fL (8.0-11.0); Platelet Count 282 x1000/uL (130-400); RBC 4.76 m/cumm (4.00-5.20); RBC Distribution Width 12.7 % (11.7-14.6); White Blood Cell Count 7.28 k/cumm (4.4-10.8)
[2019-12-15 10:31] LABS: Anion Gap 10.1 mmol/L (3-11); BUN 16 mg/dL (7-18); CO2 24.9 mmol/L (21.0-32.0); CREATININE 0.68 mg/dL (0.55-1.02); Calcium 8.9 mg/dL (8.5-10.1); Chloride 106 mmol/L (98-107); Glucose 85 mg/dL (74-106); Potassium 4.7 mmol/L (3.5-5.1); Sodium 141 mmol/L (136-145)
== END 2019-12-15 09:09 ==
PROVIDERS: PCP Family Medicine; Visit Provider Student in an Organized Health Care Education/Training Program
DX: M25.562 Pain in left knee (principal); M17.12 Unilateral primary osteoarthritis, left knee; Z01.818 Encounter for other preprocedural examination; Z01.812 Encounter for preprocedural laboratory examination
CPT/HCPCS: 36415; 80048; 85027

== ENCOUNTER 2020-02-09 09:03 | Outpatient (CLI) | payer OTHER, SELFPAY ==
[2020-02-10 15:54] LABS: COVID-19 RT-PCR UVMMC Result Negative (Negative)
== END 2020-02-09 09:23 ==
PROVIDERS: PCP Family Medicine; Visit Provider Student in an Organized Health Care Education/Training Program
DX: Z11.59 Encounter for screening for other viral diseases (principal); Z01.818 Encounter for other preprocedural examination
CPT/HCPCS: U0003

== ENCOUNTER 2020-02-13 05:56 | Observation (INO) | payer OTHER, SELFPAY ==
[2020-02-13] VITALS (12 sets, daily range): BP systolic 53–138; BP diastolic 40–111; PULSE 49–61; RESP 12–18; TEMP 35.2–36.9; O2SAT 94–98
[2020-02-13] MEDS: Acetaminophen 500 MG TAB 1000 MG PO ×2 (06:26→14:05)
[2020-02-13] MEDS: Celecoxib 200 MG CAP 400 MG PO (06:26)
[2020-02-13] MEDS: Gabapentin 300 MG CAP PO (06:26)
[2020-02-13] MEDS: Bupivacaine 0.25% Pres-Free 30 ML VIAL ×2 (07:20→08:18)
[2020-02-13] MEDS: Lactated Ringers 1,000 ML 80 ML IV ×2 (07:20→11:40)
[2020-02-13] MEDS: ceFAZolin 2 GM/50 ML BAG IVPB (07:32)
[2020-02-13] MEDS: Ketorolac 30 MG/ML VIAL (08:22)
--- NOTE | 2020-02-13 11:14 | W.PM.OP ---
Date of service: 02/13/20 Time of Service: 10:01 Operative Note Operative Note DATE OF PROCEDURE: 02/13/20 PRE-OP DIAGNOSIS: Left Knee Osteoarthritis POST-OP DIAGNOSIS: same PROCEDURE: Left Total Knee Replacement SURGEON: Kodak Shah [employer] SALESPERSON: Esther Sarkar ANESTHESIA: regional and spinal ESTIMATED BLOOD LOSS: 200 PATHOLOGY: none sent TOURNIQUET TIME: 0 COMPLICATIONS: None Patient was transported to: PACU Patient's condition: stable Implants: 1. Depuy Attune Cementless Cruciate Retaining Femoral Component, Size 5 Narrow 2. Depuy Attune Cementless Rotating Platform Tibial Component, Size 3 3. Depuy Attune 5x5mm CR/RP Poly 4. Depuy Attune Patellar Component, Size 35 Indications: I have seen Debora in clinic for symptoms of LEFT knee arthritis and osteonecrosis, confirmed with radiographic findings. Debora has exhausted nonoperative methods and was having significant limitations in daily function and desired better function and less pain. I discussed the technical details of a knee replacement. I explained the risks of the procedure to include, but not limited to, bleeding, infection, pain, stiffness, fracture, damage to nerves and vessels, damage to muscles and tendons, loosening, need for repeat procedure, blood clot and cardiopulmonary demise. Despite these risks, Debora elected to proceed. Findings: There was significant signs of arthritis throughout the knee, most prominent medially but also within the trochlea and lateral femur. Procedure Description: Debora was greeted in the preoperative holding area where the correct side was identified and marked. The consent was reviewed with the patient and signed. The history and physical was updated. All questions were answered. Preoperative mediacations were administered: Acetaminophen 1000mg, Celebrex 400mg, and Gabapentin 300mg. An adductor canal block was then administered by the anesthesia team in the PACU. She was taken back to the operating room. A spinal anesthestic was then administered. The patient was placed into the supine position on the operating room table. A nonsterile tourniquet was placed high onto the leg but only used for cementing. Posts were placed for positioning during the procedure. All bony prominences were well padded. Prophylactic antibiotics in the form of Cefazolin were administered. 1g of Tranxemic Acid was given intravenously within 30 minutes of incision. The right leg was then prepped with Chloraprep and draped in a standard fashion with impervious stockinette. A second prep with Chloraprep was performed prior to application of Iodine impregnated skin protection. A timeout to confirm correct identity, side and site, procedure, allergies, anesthesia, and medical concerns was performed. With the knee in some flexion, a midline incision was made overlying the knee. Full thickness skin flaps were raised once the extensor mechanism was encountered. These were raised medially and laterally. Any bleeding was controlled with electrocautery. Once the extensor mechanism was fully exposed, a medial parapatellar arthrotomy was performed in a flexed position. All bleeding from the arthrotomy and the geniculate arteries was coagulated. A medial subperiosteal peel was performed with electrocautery to the midcoronal plane. The fat pad was removed while keeping the patellar tendon protected. The anterior distal femur synovium was removed for later visualization. The ACL and PCL were resected and the anterior horn of the lateral meniscus was transected. The knee was then flexed with the patella everted. Using a step drill, and based on preoperative templating, the femoral canal was entered. This was done with a step drill without any difficulty. The intramedullary distal femoral cut guide was inserted, set to a 4 degree valgus cut and 9mm cut thickness. The distal femoral cut guide was then held in position and pinned. With the soft tissues protected, the distal cut was performed. This was passed over a few times to ensure a planar cut. I then turned attention to the tibia. The extramedullary guide was placed onto the leg. The distal aspect was slid medial to adjust for position of center of ankle and stay in line with shaft of the tibia. Approximately 3-5 degrees of posterior slope was kept in the proximal cutting guide. The center of the guide was aligned with the PCL. The stylus was used to assess cut thickness. The medial side, most involved side, was set for a 4mm cut, corresponding to a 9mm lateral cut. This was then held in position and pinned into place with 2 additional pins and a cross pin for stability. The medial and lateral collateral ligaments were protected and the cut was performed. With this completed, it was assessed and noted to be of appropriate dimensions. The guide was removed. A spacer block was inserted and the knee was brought into extension. The [6mm] spacer block provided full extension, without hyperextension and with stability of both the medial and lateral collateral ligaments was assessed. The pins from the femur and the tibia were then removed. The distal femur was then sized. The anterior stylus was placed onto the lateral ridge of the anterior femur. This indicated a size 5 narrow femur. The external rotation of the guide was adjusted to 3 degrees to match the epicondylar axis, perpendicular to Buck?s line. The 4-in-1 cutting guide was the placed. The posterior medial femur cut was evaluated and appeared of good thickness. The spacer block was inserted underneath the cutting guide and stability was confirmed in 90 degrees of flexion. An catherine wing was used to confirm appropriate position of the anterior cut to avoid notching. This cutting guide was ensured to be flush on the cut surface and then pinned into place with headed pins. While protecting the soft tissues, quad tendon, and collateral ligaments, the anterior and posterior cuts were performed with a saw. The central two pins were removed and the posterior and anterior chamfers were cut next. The notch-cutting guide was placed. This was pinned to lateralize the femoral component as much as possible while keeping it flush on the cut surface. This was then pinned into position. A reciprocating saw was used to make the notch cut. A rasp smoothed the cut surfaces. The medial and lateral menisci were removed. A trial femoral component was then inserted, impacted down to the cut surfaces, and the lug holes were drilled. A provisional trial tibial component was placed and the knee was brought through range of motion. There was noted to be excellent extension and flexion. There was no significant instability. The patella was tracking without thumbs. A size 5mm polyethylene component provided the best range of motion and stability with less than 2mm gapping with medial and lateral stress and full extension without significant hyperextension. The tibial cut surface was fully exposed. The tibia was then sized as a 3. The tibia had been previously marked during trialing to correspond to the center of the tibial component to help with rotation. The trial was aligned to this mayela, approximately rotated to the medial 1/3rd of the tibial tubercle. The trial was pinned into place. The tibia was prepared with a reamer and a keel punch and lug holes. The knee was then brought into extension and the patella was measured as 22mm. Using the patellar clamp and cut guide, this was resected to a flat surface with at least 13mm of thickness remaining. The size 35 patella fit the best. This was oriented and then clamped into position. The lugs were drilled. The trial components were removed. The final components were opened on the back table. The periosteal and capsular tissues, especially posteriorly, around the knee were then systematically injected with a periarticular cocktail consisting of 50cc 0.25% Marcaine, 30mg Ketorolac, 20cc of Exparal and 50cc of injectable saline. The knee was thoroughly irrigated with a pulse lavage and dried. Irrisept was also used to irrigate the tissues. On the back table, with the implants opened, the cement was mixed. One batche of high viscosity cement were prepared with vacuum assistance. After the cement was ready a small amount was placed on the cut surface of the patella and the patellar button was clamped into position and held. During this process attention was turned to the gutters of the knee and for all interfaces for any excess cement. While the cement was hardening, the cementless knee components were placed. Starting with the tibial component, the tibia was subluxed anteriorly and the lug holes of the component were lined up. The tibia was then impacted with an impactor and mallet until the tibial component was in contact with the tibia. The final polyethylene component was inserted. Then, the femoral component was inserted. The lug holes were aligned and the component was impacted into position. The knee was irrigated with Irrisept chlorhexadine solution. This was allowed to sit in the knee for 3 minutes. After the cement had finally cured, approximately 15min, the clamp was removed from the patella and the knee was taken through range of motion. The patella was tracking with a no-thumbs technique. The capsule was then reapproximated with a No. 1 Vicryl at multiple locations. The capsule was finally closed with a No. 2 Stratafix, barbed suture. The tourniquet was then released and the arthrotomy appeared watertight without significant bleeding. The second dosing of 1g TXA was started. Deep tissues were then reapproximated with 0 Vicryl and 2-0 Vicryl. The skin was closed with a running 3-0 Monocryl in a subcuticular fashion. This was reinforced with skin glue. A Mepilex silver dressing was applied along with a [id number] JULY wrap. A CryoCuff was applied. Debora was transferred to the hospital bed without difficulty an suffering no apparent complication. Debora has a good prognosis. Physical therapy will start today and without restrictions, weight-bearing as tolerated. Aspirin 81mg BID will be used for DVT prophylaxis.
[2020-02-13] MEDS: ceFAZolin 1 GM/50 ML BAG IVPB (12:21)
--- NOTE | 2020-02-13 13:27 | PT.INIE ---
Date of service: 02/13/20 Time of Service: 13:00 PT Notes Visit Reasons: TOTAL KNEE Inpatient Physical Therapy Evaluation Date: February 13, 2020 Referring Doctor: Kodak Shah PT Orders: PT CONSULT: s/p L TKA Precautions: Standard, WBAT L LE Patient Profile/Admitting Diagnosis: Debora is a 59 year old female s/p L TKA due to left knee osteoarthritis. 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 She reports one level living once inside. She reports I with use of a walker and crutches due to her chronic knee pain. She notes that she has a shower chair and grab bars in her bathroom. Her son also lives in one of the adjacent apartments. Current Functional Limitations: WBAT L LE Equipment Owned/DME: walker, crutches, shower chair, grab bars Subjective: Debora notes that she already feels so much better. She is not having any pain at time of PT consult. She had just reported some dizziness to her nurse however declines any dizziness or nausea at this time after eating something for lunch. Objective: General Observation: IV Left UE Mental Status: Alert and oriented x3 Pain: Declines pain Vital Signs: BP: 129/94 mmHg, heart rate 68 bpm ROM: Right Upper Extremity: Within normal limits active right upper extremity range of motion Left Upper Extremity: Within normal limits active left upper extremity range of motion Right Lower Extremity: Within normal limits active right lower extremity range of motion Left Lower Extremity: Within normal limits hip and ankle mobility limited knee flexion to 80 degrees Strength: Right Upper Extremity: Demonstrates 5/5 right upper extremity strength Left Upper Extremity: Demonstrates 5/5 left upper extremity strength Right Lower Extremity: Demonstrates 5/5 right lower extremity strength Left Lower Extremity: Hip flexion 4/5, knee extension 3+/5, knee flexion 4-/5, dorsiflexion/plantarflexion 4/5 Bed Mobility/Transfers: Supine?sit: Independent, HOB 30 degrees Sit?supine: Independent, HOB 30 degrees Sit?stand: Independent with use of FWW Stand-sit: Independent Bed?chair: Supervision with FWW Gait: FWW, WBAT L LE, 300 ft supervision demonstrating good maddie and no loss of balance. Balance: Static Sitting: Normal Dynamic Sitting: Normal Static Standing: Good Dynamic Standing: Good Special Tests: Mobility Limitations Standardized Measure [facility] AM-PAC 6 clicks Basic Mobility Inpatient Short Form: Raw Score: 21 CMS Score: 29% Informed Consent/Education: Patient instructed in purpose of PT consult and plan of care. Patient instructed in range of motion exercises to complete with the left knee via total knee protocol. Also instructed in my quad setting, ankle pumps, and glutes sets. Assessment: Patient is a 59 year old female referred to physical therapy services with the diagnosis of s/p L TKA. Patient presents with clinical signs and symptoms consistent with diagnosis, as demonstrated by the following impairment level findings: Impaired joint mobility left knee, motor function, muscle performance with altered gait and balance requiring use of assistive device for functional ADL's and ambulation. Patient did extremely well with bed mobility and functional transfers as well as with ambulation and anticipate she will be going home this evening via MD order. Patient is assessed as a Low 99419 complexity based on the following: History: As above Examination: As above Presentation: Stable Decision Making: Low Plan of Care/Treatment Plan: Anticipate patient will be discharged home per MD order. Recommend outpatient physical therapy services for promotion of functional strength, gait and balance training per MD order. DISCHARGE RECOMMENDATIONS: Home per MD order. TREATMENT CODE/TIME: 14627, 25 minutes, 13:00 PM Thank you for this referral! Candy Vanessa, MPT [facility] Disclaimer: This note was created using [employer] voice recognition software. It was reviewed for major content. However, there may be multiple small discrepancies and errors due to the voice recognition aspects of the software.
--- NOTE | 2020-02-13 13:56 | DSE_ITS ---
Date of service: 02/13/20 Time of Service: 13:56 DS: Diagnosis Discharge Diagnosis (1) Knee osteonecrosis, left: Status: Acute Discharge Plan Disposition Patient Disposition: HOME Condition: Good Discharge Details Reason For Visit: TOTAL KNEE Admit Date/Time: 02/13/20 05:56 Admit Provider: Kodak Shah Attending Provider: Kodak Shah [facility] Hospital Course: Patient was admitted to the medical/surgical floor following the procedure. It was tolerated well without any notable medical, surgical, or anesthetic complications. Mobilization began postoperatively. Vitals were stable. Physical therapy worked with the patient and was cleared for discharge home. No acute medical issues. Home Meds and New Rx's Prescriptions: New celecoxib 200 mg capsule 200 mg PO BID PRN (Reason: pain) Qty: 60 RF: 1 aspirin 81 mg tablet,delayed release (DR/EC) 81 mg PO BID Qty: 60 RF: 0 acetaminophen 500 mg tablet 1,000 mg PO Q8H PRN (Reason: pain) Qty: 90 RF: 3 pantoprazole 40 mg tablet,delayed release (DR/EC) 40 mg PO DAILY Qty: 30 RF: 0 gabapentin 300 mg capsule 300 mg PO QHS Qty: 7 RF: 0 oxycodone 5 mg tablet 5 mg PO Q4H Qty: 18 RF: 0 Continued losartan 25 mg tablet 25 mg PO DAILY Qty: 90 RF: 3 rosuvastatin 5 mg tablet 5 mg PO DAILY Qty: 90 RF: 3 Discontinued naproxen 500 mg tablet 500 mg PO BID PRN (Reason: Left knee pain) Qty: 60 RF: 0 hydrocodone-acetaminophen 5-325 mg tablet 1 tab PO QHS MDD 5 mg PRN (Reason: pain) Qty: 7 RF: 0 acetaminophen [Pain Relief] 500 MG tablet 1,000 mg PO QID PRNRF: 0 ibuprofen 800 mg tablet 800 mg PO TID Qty: 30 RF: 0 No Action (DME) [Left] knee medial load tester brace Qty: 1 RF: 0 Discharge Instructions Additional Instructions: Dr. Shah?s Total Knee Discharge Instructions Activity: The most important activity is to walk. You should try to take short walks a few times a day. It is important that when resting you work on keeping the knee straight. Avoid putting a pillow behind the knee as this will encourage flexion. Work on range of motion exercises as provided by Physical Therapy. - Start outpatient physical therapy within 2 weeks. - You should wear the DIDIER hose on both legs for 2 weeks. Dressing: Keep the surgical dressing in place for at least one week. After the first week it may be removed and replace with light gauze and tape or nothing. It may get wet after 3 days but avoid soaking the dressing. If it gets wet, just lightly pat dry. Medications: - You should take Tylenol and anti-inflammatory Celebrex as your primary pain control medications - You have been prescribed a stronger pain medication Oxycodone for breakthrough pain, take as needed as prescribed. - You have also been prescribed a stomach acid reduction agent Pantoprozole to help reduce stomach acid and reflux. - You have been prescribed Gabapentin to take at night for rest and nerve pain. - You will be taking Aspirin 81mg twice a day for DVT prevention unless instructed otherwise. - If you have constipation you should take Colace or Miralax (both [id number]). It takes most people 3-4 days to have a bowel movement. Follow-up: 2 weeks If you have questions, you may call the office at [phone] Shah at [phone]. Referrals: Kodak Shah MD [ [facility] STAFF PHYSICIAN] - Activity:: Activity as Tolerated Equipment/Supplies:: Walker Diet:: As Tolerated Discharge Orders Discharge Orders: Discharge Order (Routine); Ordered 02/13/20 Ordered By: Kodak Shah DS: Summary Status at Discharge Functional status at discharge: uses cane/walker Overall status at discharge: patient is progressing back to baseline Mental Status: mental status grossly normal Speech and Movement: speech and movement normal Mood: congruent mood Affect: normal affect Exam Psych Mental Status: mental status grossly normal Speech and Movement: speech and movement normal Mood: congruent mood Affect: normal affect DS: Data Vitals/I&O Vitals and I&O: Vital Signs Temperature 35.2 C L 02/13/20 12:53 Temperature Source Tympanic 02/13/20 12:53 Pulse 56 L 02/13/20 12:53 Pulse Rhythm Regular 02/13/20 05:48 Respiratory Rate 18 02/13/20 12:53 Respiratory Effort Non-Labored 02/13/20 05:48 Respiratory Depth Normal 02/13/20 05:48 Respiratory Pattern Normal 02/13/20 05:48 Blood Pressure 102/70 02/13/20 12:53 Pulse Oximetry 98 02/13/20 12:53 Oxygen Delivery Method Room Air 02/13/20 12:53 Oxygen Flow Rate 0 02/13/20 12:53 Pain Level 0 02/13/20 12:53 Intake & Output 02/12/20 02/13/20 02/13/20 23:59 11:59 23:59 Intake Total 1075.333 / 1075.333 Output Total 750 / 750 Balance 325.333 / 325.333 Weight 77.1 kg Intake: IV 1075.333 / 1075.333 Output: Urine 550 / 550 Estimated Blood Loss 200 / 200 Other: Urine Color Pale Yellow Urine Appearance Clear Urine Odor Normal Emesis Description None Voiding Methods Bedside Commode [facility] Medical History Basal cell carcinoma (12/16/15) left lower eyelid Diverticulitis Hyperlipidemia Hypertension (Chronic) Internal derangement of left knee (Inactive) Surgical History Colonoscopy - MAC (06/24/18) Dr Heath, results - diverticulitis, repeat 10 years S/P left knee arthroscopy (Acute) Status post excisional biopsy (Acute) Left eye (skin lesion) Family History Mother Diabetes Stroke Father Lymphoma Brother Myocardial infarction Brother Brain tumor Social History Smoking/Tobacco Use Status: Current-Occasional Tobacco Type: cigarettes Tobacco: How many years used: 20 Alcohol Intake: current Alcohol Intake frequency: a few times a week Alcohol type: beer and wine Drug use: Never Substance use type: does not use Household members: none Housing: house Number of Children: 2 current occupation: [employer] Current gender identity: female What is your relationship status?: Panel score (0-1 are the most socially isolated patients): 0 What type of physical activity do you participate in: other Details: physically active daily Seatbelt use: always Drive 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
[2020-02-13] MEDS: oxyCODONE 5 MG TAB PO (14:05)
== END 2020-02-13 15:26 | disposition home or self-care (01) ==
LOC: PDS 09:56 → MS 09:57
PROVIDERS: Admitting Provider Student in an Organized Health Care Education/Training Program; PCP Family Medicine; Visit Provider Student in an Organized Health Care Education/Training Program
PROC: 0SRD0J9 Replacement of Left Knee Joint with Synthetic Substitute, Cemented, Open Approach (ICD-10-PCS; CPT 27447; principal; 2020-02-13 07:30)
DX: M17.12 Unilateral primary osteoarthritis, left knee (principal); M25.562 Pain in left knee; Z96.652 Presence of left artificial knee joint; M87.9 Osteonecrosis, unspecified; G89.18 Other acute postprocedural pain; I10 Essential (primary) hypertension
CPT/HCPCS: 27447; 76942; 97161; NC; G0378; J0690; J1885; J2250; J2405; J3010

== ENCOUNTER 2020-03-01 10:16 | Outpatient (CLI) | payer OTHER, SELFPAY ==
--- NOTE | 2020-03-01 09:45 | DI.RAD_ITS ---
EXAM: XR KNEE LT 1V INDICATION: S/P L TKA. COMPARISON: CR XR KNEE LT 3V AP,LAT,TAI from 11/22/2019 TECHNIQUE: 2D digital imaging was performed. A lateral weight-bearing view was performed. FINDINGS: A left total knee prosthesis is now seen. The components appear well aligned. Appears to be some a nterior soft tissue swelling and joint effusion. DATA REPOSITORY: RADIATION DOSE DELIVERED:
--- NOTE | 2020-03-01 09:45 | DI.RAD_ITS ---
EXAM: XR STANDING ALIGNMENT CLINICAL HISTORY: S/P L TKA. TECHNIQUE: 2D digital imaging was performed. COMPARISON: CR XR STANDING ALIGNMENT from 11/22/2019 FINDINGS: A left total knee prosthesis is seen. The hip joint spaces are well maintained. There is mild aceta bular spurring. There is no significant overall leg length discrepancy. There is spurring from the femoral tibial joints of the right knee but no significant joint space narrowing. There is mild bila teral ankle joint space narrowing. IMPRESSION: Left knee prosthesis. No significant leg length discrepancy. DATA REPOSITORY: RADIATION DOSE DELIVERED:
== END 2020-03-01 10:36 ==
PROVIDERS: PCP Family Medicine; Referring Provider Family Medicine; Visit Provider Student in an Organized Health Care Education/Training Program
DX: Z96.652 Presence of left artificial knee joint (principal); M25.462 Effusion, left knee; M79.89 Other specified soft tissue disorders
CPT/HCPCS: 73560; 77073

== ENCOUNTER 2020-03-11 02:28 | Outpatient (CLI) | payer OTHER, SELFPAY ==
--- NOTE | 2020-03-11 15:00 | DI.CTLCSR_ITS ---
EXAM: CT CHEST LUNG CANCER SCREEN CLINICAL HISTORY: The patient reportedly has a History of Smoking 30 pack years and presently smokes or has quit the past 15 years. TECHNIQUE: Imaging Protocol: Axial computed tomography images with coronal and sagittal reformatted images were created and reviewed COMPARISON: CT ABD PELVIS WITH CONTRAST from 04/04/2018 FINDINGS: Tracheobronchial tree: Patent where visualized. Mediastinum and Chacha: No dominant adenopathy or fluid collection. Pulmonary parenchyma: No consolidation or dominant measurable mass. No architectural distortion. Ther e is an area of scarring or atelectasis in the left lingula. Lung Nodules: There is a 3 mm nodule in the right upper lobe. Pleura: No effusion or pneumothorax. Heart: The heart is not dilated. Minimal coronary artery calcification. No significant pericardial e ffusion. Aorta: Thoracic aorta non-dilated.Minimal atherosclerosis. Upper abdomen: Stable adrenal nodule. Bones: Degenerative changes in the spine. Soft Tissues: Unremarkable. IMPRESSION: 3 mm nodule in the right upper lobe. Lung RADS Cat 2 - Benign Appearance / Behavior: Nodules with a very low likelihood of becoming a clin ically active caner due to size or lack of growth Lung-RADS 1.0 CATEGORIES: Category 0 - Prior chest CT exam(s) being located for comparison. Category 1 - Annual screening in 12 months. No nodules or definitely benign nodules. Category 2 - Annual screening in 12 months. Benign appearance. Nodules with low likelihood of becomin g active cancer. Category 3 - 6-month follow-up. Probably benign. Short-term follow-up suggested. Nodules with low lik elihood of becoming active cancer. Category 4A - 3-month follow-up and CT/PET if >8 mm in size. Suspicious finding. Findings which requi re additional testing. Category 4B - Findings which require additional testing and tissue sampling. Suspicious finding. C Added to Any of the Above - History of prior lung cancer screening. S Added to Any of the Above - Significant unexpected other finding. RADIATION DOSE DELIVERED: 69.6mGy.cm Total DLP DATA REPOSITORY: All CT scans at this facility are submitted to the National Radiology Data Registry (NRDR) Dose Index Registry (DIR) with the [employer] (ACR). RADIATION OPTIMIZATION: All CT scans at this facility use at least one of these dose optimization te chniques: automated exposure control; mA and/or kV adjustment per patient size (includes targeted exa ms where dose is matched to clinical indication); or iterative reconstruction.
== END 2020-03-11 02:48 ==
PROVIDERS: PCP Family Medicine; Visit Provider Family Medicine
DX: Z12.2 Encounter for screening for malignant neoplasm of respiratory organs (principal); F17.210 Nicotine dependence, cigarettes, uncomplicated; R91.1 Solitary pulmonary nodule
CPT/HCPCS: G0297

== ENCOUNTER 2020-03-19 17:27 | Inpatient (IN) | payer OTHER, SELFPAY ==
[2020-03-19 17:36] VITALS: BP 142/90; PULSE 85; RESP 16; TEMP 37; O2SAT 98
--- NOTE | 2020-03-19 17:45 | DI.CT_ITS ---
EXAM: CT ABDOMEN PELVIS W CLINICAL HISTORY: abd pain LLQ. TECHNIQUE: Imaging Protocol: Axial computed tomography images with coronal and sagittal reformatted images were created and reviewed CONTRAST MATERIAL: Intravenous: Omnipaque 350 Contrast volume:100cc Oral: / no COMPARISON: CT CT ABDOMEN PELVIS W from 10/31/2019 FINDINGS: ABDOMEN: Lung Bases: Normal where visualized. Liver: Normal density. No measurable mass. Gallbladder and biliary tract: No radiodense calculus or dilation. Pancreas: Fatty replacement. no abnormal calcifications or inflammatory process. Spleen: Normal. Kidneys: Normal size, contour and axis. No radiodense stones or obstructive uropathy. No masses seen. Adrenal glands: Stable small nodule of the left adrenal gland. Abdominal Aorta: Abdominal portion non-dilated. Mild calcification. PELVIS: Bladder: Symmetric distention, no gross wall thickening. Bowel: Diverticular are again noted along the mid descending through sigmoid colon. There is inflamm ation of the lower descending colon with some wall thickening and surrounding stranding, consistent w ith diverticulitis. There is no abscess or perforation. No obstruction. Normal appendix. Bones: Within normal limits. Reproductive organs: Within normal limits. Lymph nodes: Unremarkable. Impression: Diverticulitis of the distal descending colon. No abscess or perforation.. RADIATION DOSE DELIVERED: 888.4mGy.cm Total DLP DATA REPOSITORY: All CT scans at this facility are submitted to the National Radiology Data Registry (NRDR) Dose Index Registry (DIR) with the [employer] (ACR). RADIATION OPTIMIZATION: All CT scans at this facility use at least one of these dose optimization te chniques: automated exposure control; mA and/or kV adjustment per patient size (includes targeted exa ms where dose is matched to clinical indication); or iterative reconstruction.
[2020-03-19] MEDS: Omnipaque 350 MG/ML 100 ML BTL IV (18:41)
[2020-03-19 18:42] LABS: Abs Immature Grans 0.05 k/cumm (0.0-0.09); Absolute Eosinophil Count 0.17 k/cumm (0.0-0.7); Absolute Monocyte Count 1.04 k/cumm (0.11-0.7); Absolute Neutrophil Count 11.89 k/cumm (1.2-6.7); Basophils % 0.3; Eosinophils % 1.1; HCT 40.4 % (36.0-46.0); HGB 13.8 g/dL (12.0-15.5); Immature Grans % 0.3 %; Lymphocytes % 16.1; Mean Corp. HGB Concentration 34.2 g/dL (32.0-36.0); Mean Corpuscular Hemoglobin 31.4 pg (27.0-33.0); Mean Platelet Volume 10.6 fL (8.0-11.0); Monocytes % 6.6; Neutrophils % 75.6; Platelet Count 319 x1000/uL (130-400); RBC 4.39 m/cumm (4.00-5.20); RBC Distribution Width 13.3 % (11.7-14.6); White Blood Cell Count 15.73 k/cumm (4.4-10.8)
[2020-03-19] MEDS: Normal Saline - Diluent 50 ML VIAL IV (18:42)
[2020-03-19] MEDS: Normal Saline Flush 10 ML SYR IVP ×2 (18:42→22:14)
[2020-03-19 18:44] LABS: Bilirubin Negative (Negative); Blood Negative (Negative); Clarity Clear (Clear); Glucose Negative (Negative); Ketones Negative (Negative); Leukocyte Esterase Negative (Negative); Nitrite Negative (Negative); Specific Gravity 1.025 (1.005-1.025); Urobilinogen 0.2 EU/dL (Up TO 0.2); pH 5.5 (5-8)
[2020-03-19 18:44] LABS: Absolute Basophil Count 0.05 k/cumm (0.0-0.2); Absolute Lymphocyte Count 2.53 k/cumm (1.2-3.4)
[2020-03-19 18:56] LABS: Lipase 42 U/L (73-393)
[2020-03-19 19:01] LABS: Albumin 4.6 g/dL (3.4-5.0); Alkaline Phosphatase 174 U/L (46-116); Anion Gap 11.9 mmol/L (3-11); BUN 15 mg/dL (7-18); Bilirubin, Total 0.5 mg/dL (0.2-1.0); CO2 24.1 mmol/L (21.0-32.0); Chloride 102 mmol/L (98-107); Glucose 119 mg/dL (74-106); Sodium 138 mmol/L (136-145)
[2020-03-19 19:03] LABS: Calcium 8.5 mg/dL (8.5-10.1)
--- NOTE | 2020-03-19 19:04 | DI.VRAD_ITS ---
PROCEDURE INFORMATION: Exam: CT Abdomen And Pelvis With Contrast Exam date and time: 03/19/2020 5:47 PM Age: 59 years old Clinical indication: Abdominal pain; Localized; Left lower quadrant (llq); Patient HX: Llq pain, severe TECHNIQUE: Imaging protocol: Computed tomography of the abdomen and pelvis with intravenous contrast. Radiation optimization: All CT scans at this facility use at least one of these dose optimization techniques: automated exposure control; mA and/or kV adjustment per patient size (includes targeted exams where dose is matched to clinical indication); or iterative reconstruction. Contrast material: OMNIPAQUE 350; Contrast volume: 100 ml; Contrast route: INTRAVENOUS (IV); COMPARISON: CT ABDOMEN PELVIS W 10/31/2019 4:44 AM FINDINGS: Liver: Normal. No mass. Gallbladder and bile ducts: Normal. No calcified stones. No ductal dilation. Pancreas: Normal. No ductal dilation. Spleen: Normal. No splenomegaly. Adrenals: 1.5 cm left adrenal nodule, nonspecific measuring 77 Hounsfield units. Kidneys and ureters: Normal. No hydronephrosis. Stomach and bowel: Acute diverticulitis in the distal descending colon. No perforation or abscess. Appendix: No evidence of appendicitis. Intraperitoneal space: Unremarkable. No free air. No significant fluid collection. Vasculature: Atherosclerosis Lymph nodes: Unremarkable. No enlarged lymph nodes. Bladder: Unremarkable as visualized. Reproductive: Unremarkable as visualized. Bones/joints: Unremarkable. No acute fracture. Soft tissues: Unremarkable. IMPRESSION: Acute diverticulitis in the distal descending colon. No perforation or abscess. Dictated and Authenticated by: Mukesh Saenz MD. Ordering:OLESYA Meneses MD
--- NOTE | 2020-03-19 19:16 | ED.GENADUL_ITS ---
Discharge Plan Disposition Condition: Improving Discharge Details Chief Complaint: Abd Prob Admit Date/Time: 03/19/20 20:12 Admit Provider: Dee Magallon Attending Provider: Dee Magallon Primary Care Provider: Rik Abebe ED Provider: Gideon Sosa Discharge Instructions Activity:: Activity as Tolerated Equipment/Supplies:: No Equipment Needed Diet:: As Tolerated Discharge Orders Discharge Orders: Discharge Order (Routine); Ordered 03/20/20 Ordered By: Regina Acuña Discharge Data Discharge Date/Time-TO BE ENTERED AT DEPARTURE: 03/19/20 21:00 Medical Decision Making 59-year-old female with history of diverticulosis here with left lower quadrant pain that she has had over the past 9 days now worse despite taking Augmentin for the past 7 days. Patient has nausea but is tolerating oral intake. Consider acute life-threatening intra-abdominal surgical process including bowel perforation or abscess. CT of the abdomen pelvis was interpreted by radiology: No perforation or abscess, diverticulitis is present. Labs were reviewed. Patient has significant leukocytosis. Patient was given IV fluid and started on Levaquin and Flagyl IV. Patient to be admitted to the hospitalist service for continued IV antibiotics and reassessment given failure of outpatient therapy. I called and spoke with Dr. Magallon who will admit the patient. Diagnosis: Acute diverticulitis Disposition: Admit HPI General Mode of arrival: ambulatory . Date/Time Provider Initiated Documentation: 03/19/20 17:38 . Limitations to Documentation: no limitations . Information obtained by: patient . HPI Narrative: 59 year old female with history of diverticulosis and and prior diverticulitis, presents with chief complaint of worsening left lower quadrant abdominal pain since this morning. Patient states that she has had ongoing pain with current flare of diverticulitis for the past 9 days. She is currently being treated with Augmentin as prescribed by PCP over the past 1 week. Initially she thought symptoms were improving and now they are worsening. Patient has had some nausea but no vomiting. No blood in stool. No associated fever. Pain is currently severe. No modifiers. Described as sharp and localized in her left lower abdomen. Related Data Home Medications Medication Instructions Recorded Confirmed [Left] knee medial grain unloader machine brace #1 ea 11/30/19 03/19/20 losartan 25 mg tablet 25 mg PO DAILY #90 tab-cap 12/28/19 03/19/20 rosuvastatin 5 mg tablet 5 mg PO DAILY #90 tab 02/05/20 03/19/20 aspirin 81 mg PO BID #60 tab 02/13/20 03/19/20 acetaminophen 1,000 mg PO PRN PRN 03/19/20 03/19/20 acetaminophen [Tylenol] 650 mg PO Q4H PRN PRN #0 tab 03/20/20 levofloxacin [Levaquin] 750 mg PO DAILY #7 tab 03/20/20 metronidazole [Flagyl] 500 mg PO QID #28 tab 03/20/20 oxycodone 5 mg PO BID PRN #10 tab MDD 10mg 03/20/20 Previous Rx's Medication Instructions Recorded [Left] knee medial grain unloader machine brace #1 ea 11/30/19 losartan 25 mg tablet 25 mg PO DAILY #90 tab-cap 12/28/19 rosuvastatin 5 mg tablet 5 mg PO DAILY #90 tab 02/05/20 aspirin 81 mg PO BID #60 tab 02/13/20 acetaminophen [Tylenol] 650 mg PO Q4H PRN PRN #0 tab 03/20/20 levofloxacin [Levaquin] 750 mg PO DAILY #7 tab 03/20/20 metronidazole [Flagyl] 500 mg PO QID #28 tab 03/20/20 oxycodone 5 mg PO BID PRN #10 tab MDD 10mg 03/20/20 Allergies Allergy/AdvReac Type Severity Reaction Status Date / Time gabapentin Allergy Severe coughing, Verified 03/12/20 13:25 swallowing issues, tongue swelling bacitracin Allergy Intermediate Skin Rash Verified 03/12/20 13:25 Sulfa (Sulfonamide Allergy RASH, Verified 03/12/20 13:25 Antibiotics) DIFFICULTY BREATHING atorvastatin [From Lipitor] AdvReac Severe coughing Verified 03/12/20 13:25 General Stated Complaint: Abd Prob JEAN PAUL: 3 Review of Systems All systems reviewed & are unremarkable except as noted in HPI and below Gastrointestinal Gastrointestinal: Reports as per HPI Genitourinary Genitourinary: Denies dysuria PFSH Medical History Basal cell carcinoma (12/16/15) left lower eyelid Diverticulitis Diverticulosis (Acute) Hyperlipidemia Hypertension (Chronic) Internal derangement of left knee (Inactive) Knee osteonecrosis, 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/13/20 Tobacco abuse (Acute 06/05/14) Surgical History Colonoscopy - MAC (06/24/18) Dr Heath, results - diverticulitis, repeat 10 years History of total knee arthroplasty (Acute) S/P left knee arthroscopy (Acute) Status post excisional biopsy (Acute) Left eye (skin lesion) Status post left knee replacement (Acute) Family History Mother Diabetes Stroke Hypertension Father Lymphoma Brother Myocardial infarction Brother Brain tumor Social History Smoking/Tobacco Use Status: Current-Occasional Tobacco Type: cigarettes Tobacco: How many years used: 20 Alcohol Intake: current Alcohol Intake frequency: a few times a week Alcohol type: beer and wine Drug use: Never Substance use type: does not use Household members: none Housing: house Number of Children: 2 current occupation: [employer] Current gender identity: female What is your relationship status?: Panel score (0-1 are the most socially isolated patients): 0 What type of physical activity do you participate in: regular exercise and other Details: physically active daily Seatbelt use: always Drive intox or ride w/intox 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 Working smoke detector in home: Yes Fire extinguisher in home: Yes Carbon monox detector in home: Yes Do you feel safe at home: Yes Do you feel safe in your relationship?: Yes History History 2 Para 2 Hx # Term Pregnancies Multiple births Hx # Pregnancies Ectopic pregnancies AB induced Hx Number of Living Children AB spontaneous Exam Const General: cooperative and no acute distress HENMT Mouth: moist mucous membranes Eyes Conjunctivae: normal conjunctivae Sclera: normal sclerae EOM: EOM intact bilaterally Neck Neck: trachea midline and supple Resp Auscultation: clear to auscultation bilaterally, no rales, no rhonchi and no wheezes Cardio Jugular venous pressure: no JVD Rate: regular rate and not tachycardic Rhythm: regular rhythm GI Palpation: soft, not firm, no guarding, no masses, not rigid and tender in the LLQ and with rebound tenderness Skin General skin exam: no rashes or lesions noted Neuro General: patient alert, patient awake, patient oriented x3 and tone normal Extrem General: no edema Psych Appearance: grossly normal Mental Status: mental status grossly normal Speech and Movement: speech and movement normal Course Vital Signs Vital signs: Vital Signs Temperature 37.0 C 03/19/20 17:36 Pulse 85 03/19/20 17:36 Respiratory Rate 16 03/19/20 17:36 Blood Pressure 142/90 H 03/19/20 17:36 Pulse Oximetry 98 03/19/20 17:36 Temperature 37.0 C 03/19/20 17:36 Temperature Source Tympanic 03/19/20 17:36 Pulse 85 03/19/20 17:36 Respiratory Rate 16 03/19/20 17:36 Respiratory Effort Non-Labored 03/19/20 17:38 Blood Pressure 142/90 H 03/19/20 17:36 Pulse Oximetry 98 03/19/20 17:36 Oxygen Delivery Method Room Air 03/19/20 17:36 Oxygen Flow Rate 0 03/19/20 17:36 Pain Level 5 03/19/20 17:36 Lab/Test Results Lab/Test Results: Laboratory Tests Range/Units 03/19/20 03/19/20 03/19/20 18:10 18:30 18:30 WBC (4.4-10.8) k/cumm RBC (4.00-5.20) m/cumm Hgb (12.0-15.5) g/dL Hct (36.0-46.0) % MCV (80-95) fL MCH (27.0-33.0) pg MCHC (32.0-36.0) g/dL RDW (11.7-14.6) % Plt Count (130-400) x1000/uL MPV (8.0-11.0) fL Immature Gran % % Neutrophils % Lymphocytes % Monocytes % Eosinophils % Basophils % Absolute Neutrophils (1.2-6.7) k/cumm Absolute Lymphocytes (1.2-3.4) k/cumm Absolute Monocytes (0.11-0.7) k/cumm Absolute Eosinophils (0.0-0.7) k/cumm Absolute Basophils (0.0-0.2) k/cumm Sodium (136-145) mmol/L 138 Potassium (3.5-5.1) mmol/L 4.0 Chloride (98-107) mmol/L 102 Carbon Dioxide (21.0-32.0) mmol/L 24.1 Anion Gap (3-11) mmol/L 11.9 H BUN (7-18) mg/dL 15 Creatinine (0.55-1.02) mg/dL 0.90 Estimated GFR/1.73 m2 (mL/min/1.73m2) >= 60.00 Glucose (74-106) mg/dL 119 H Calcium (8.5-10.1) mg/dL 8.5 Total Bilirubin (0.2-1.0) mg/dL 0.5 Alkaline Phosphatase (46-116) U/L 174 H Albumin (3.4-5.0) g/dL 4.6 Lipase (73-393) U/L 42 Urine Color (Yellow) Yellow Urine Clarity (Clear) Clear Urine pH (5-8) 5.5 Ur Specific [place] (1.005-1.025) 1.025 Urine Protein (Negative) mg/dL Negative Urine Ketones (Negative) mg/dL Negative Urine Blood (Negative) Negative Urine Nitrite (Negative) Negative Urine Bilirubin (Negative) Negative Urine Urobilinogen (Up TO 0.2) EU/dL 0.2 Ur Leukocyte Esterase (Negative) Negative Urine Glucose (Negative) mg/dL Negative Range/Units 03/19/20 18:30 WBC (4.4-10.8) k/cumm 15.73 H RBC (4.00-5.20) m/cumm 4.39 Hgb (12.0-15.5) g/dL 13.8 Hct (36.0-46.0) % 40.4 MCV (80-95) fL 92.0 MCH (27.0-33.0) pg 31.4 MCHC (32.0-36.0) g/dL 34.2 RDW (11.7-14.6) % 13.3 Plt Count (130-400) x1000/uL 319 MPV (8.0-11.0) fL 10.6 Immature Gran % % 0.3 Neutrophils % 75.6 Lymphocytes % 16.1 Monocytes % 6.6 Eosinophils % 1.1 Basophils % 0.3 Absolute Neutrophils (1.2-6.7) k/cumm 11.89 H Absolute Lymphocytes (1.2-3.4) k/cumm 2.53 Absolute Monocytes (0.11-0.7) k/cumm 1.04 H Absolute Eosinophils (0.0-0.7) k/cumm 0.17 Absolute Basophils (0.0-0.2) k/cumm 0.05 Sodium (136-145) mmol/L Potassium (3.5-5.1) mmol/L Chloride (98-107) mmol/L Carbon Dioxide (21.0-32.0) mmol/L Anion Gap (3-11) mmol/L BUN (7-18) mg/dL Creatinine (0.55-1.02) mg/dL Estimated GFR/1.73 m2 (mL/min/1.73m2) Glucose (74-106) mg/dL Calcium (8.5-10.1) mg/dL Total Bilirubin (0.2-1.0) mg/dL Alkaline Phosphatase (46-116) U/L Albumin (3.4-5.0) g/dL Lipase (73-393) U/L Urine Color (Yellow) Urine Clarity (Clear) Urine pH (5-8) Ur Specific [place] (1.005-1.025) Urine Protein (Negative) mg/dL Urine Ketones (Negative) mg/dL Urine Blood (Negative) Urine Nitrite (Negative) Urine Bilirubin (Negative) Urine Urobilinogen (Up TO 0.2) EU/dL Ur Leukocyte Esterase (Negative) Urine Glucose (Negative) mg/dL
[2020-03-19 19:21] LABS: ALT 44 U/L (14-59)
[2020-03-19 19:23] LABS: Total Protein 7.5 g/dL (6.4-8.2)
[2020-03-19] MEDS: levoFLOXacin 750 MG/150 ML BAG 100 MG IVPB (19:34)
[2020-03-19] MEDS: metroNIDAZOLE 500 MG/100 ML BAG 100 MG IVPB (19:34)
[2020-03-19 19:40] LABS: AST 33 U/L (15-37)
[2020-03-19 20:16] VITALS: BP 128/84; PULSE 76; RESP 18; TEMP 36.7; O2SAT 99
[2020-03-19 21:12] VITALS: BP 129/81; PULSE 84; RESP 16; TEMP 37; O2SAT 100
[2020-03-19] MEDS: Lactated Ringers 1,000 ML 125 ML IV (22:13)
[2020-03-19] MEDS: Enoxaparin 40 MG/0.4 ML SYR SC (22:13)
[2020-03-19 23:31] VITALS: BP 119/82; PULSE 81; RESP 18; TEMP 37.1; O2SAT 99
--- NOTE | 2020-03-19 23:46 | HPE_ITS ---
Date of service: 03/19/20 Time of Service: 23:40 Assessment and Plan Assessment and plan (1) Acute diverticulitis: Status: Acute Assessment and plan: Having failed outpatient therapy. Will continue levofloxacin/flagyl initiated in the ED. As this is this patient's 3rd bout of diverticulitis, a surgical consultation is being placed for the morning as the patient technically could be a candidate for surgery once this acute bout of diverticulitis is over. For now, patient placed on clears. The patient will let us know if her current pain management is not sufficient. (2) Hypertension: Status: Chronic Assessment and plan: Continue losartan (3) Hyperlipemia: Status: Chronic Assessment and plan: continue rosuvastatin (4) Tobacco abuse: Status: Acute Assessment and plan: Advised to quit, going over various risks, including but not limited to difficulty with healing post operatively. The patient declined nicotine replacement at this time. (5) DVT prophylaxis: Status: Acute Assessment and plan: Lovenox while in the hospital (baby asa BID on discharge) (6) Discharge planning issues: Status: Acute Assessment and plan: Full code History of Present Illness History of Present Illness Chief Complaint: abdominal pain Narrative: Ms Montgomery is a 59 year old female with PMHx of diverticulosis and two prior episodes of diverticulitis, as well as hypertension, hyperlipidemia, and ongoing tobacco abuse, who presented to [facility] ED today complaining of worsening of LLQ pain since this morning. This bout of diverticulitis has been going on for about 9-10 days, and the patient has been on augmentin, prescribed by her PCP's office, for a week. When she first started taking augmentin, she did feel better, but then today the LLQ pain got worse. She has not had any diarrhea or constipation, has had no blood in stool, and has not had any vomiting. She does have nausea whenever she takes medications. Her abdominal imaging ruled out perforation or abscess of her diverticulitis. She specifically declined me writing any more pain medications than what is currently ordered. Hospitalists were asked to admit the patient for further care. Review of Systems Narrative: The patient states that her L knee is doing quite well, though does report pain in it. States she only coughed once, and that was today since being in the hospital. Denies COVID-19 contacts. All systems reviewed & are unremarkable except as noted in HPI and below PFSH Medical History Basal cell carcinoma (12/16/15) left lower eyelid Diverticulitis Diverticulosis (Acute) Hyperlipidemia Hypertension (Chronic) Internal derangement of left knee (Inactive) Knee osteonecrosis, 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/13/20 Tobacco abuse (Acute 06/05/14) Surgical History Colonoscopy - MAC (06/24/18) Dr Heath, results - diverticulitis, repeat 10 years History of total knee arthroplasty (Acute) S/P left knee arthroscopy (Acute) Status post excisional biopsy (Acute) Left eye (skin lesion) Status post left knee replacement (Acute) Family History Mother Diabetes Stroke Hypertension Father Lymphoma Brother Myocardial infarction Brother Brain tumor Social History Smoking/Tobacco Use Status: Current-Occasional Tobacco Type: cigarettes Tobacco: How many years used: 20 Alcohol Intake: current Alcohol Intake frequency: a few times a week Alcohol type: beer and wine Drug use: Never Substance use type: does not use Household members: none Housing: house Number of Children: 2 current occupation: [employer] Current gender identity: female What is your relationship status?: Panel score (0-1 are the most socially isolated patients): 0 What type of physical activity do you participate in: regular exercise and other Details: physically active daily Seatbelt use: always Drive intox or ride w/intox 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: No Working smoke detector in home: Yes Fire extinguisher in home: Yes Carbon monox detector in home: Yes Do you feel safe at home: Yes Do you feel safe in your relationship?: Yes History History 2 Para 2 Hx # Term Pregnancies Multiple births Hx # Pregnancies Ectopic pregnancies AB induced Hx Number of Living Children AB spontaneous Meds Home Medications and Allergies Home Medications Medication Instructions Recorded Confirmed Type [Left] knee medial stock unloader brace #1 ea 11/30/19 03/19/20 Rx losartan 25 mg tablet 25 mg PO DAILY #90 tab-cap 12/28/19 03/19/20 Rx rosuvastatin 5 mg tablet 5 mg PO DAILY #90 tab 02/05/20 03/19/20 Rx aspirin 81 mg PO BID #60 tab 02/13/20 03/19/20 Rx oxycodone 5 mg tablet 5 mg PO BID PRN #14 tab MDD 10mg 03/01/20 03/19/20 Rx naproxen 500 mg tablet 500 mg PO BID #60 tab 03/07/20 03/19/20 Rx amoxicillin 875 mg-potassium 1 tab PO TID #30 tab 03/12/20 03/19/20 Rx clavulanate 125 mg tablet acetaminophen 1,000 mg PO PRN PRN 03/19/20 03/19/20 History Allergies Allergy/AdvReac Type Severity Reaction Status Date / Time gabapentin Allergy Severe coughing, Verified 03/12/20 13:25 swallowing issues, tongue swelling bacitracin Allergy Intermediate Skin Rash Verified 03/12/20 13:25 Sulfa (Sulfonamide Allergy RASH, Verified 03/12/20 13:25 Antibiotics) DIFFICULTY BREATHING atorvastatin [From Lipitor] AdvReac Severe coughing Verified 03/12/20 13:25 Exam Narrative Exam Narrative: General: Pleasant middle-aged female, does appear uncomfortable in bed Neurological: A&Ox3, no focal deficits Psychiatric: Appropriate speech pattern/content Skin: visible skin intact; L knee incision is healing nicely without any erythema or discharge HEENT: Atraumatic, normocephalic, EOMI, dry MM, clear oropharynx, no submandibular or cervical lymphadenopathy, no goiter or JVD Cardiovascular: RRR, no m/r/g Lungs: CTAB Gastrointestinal: soft, tender in LLQ, no rebound tenderness, nondistended. + BS Genitourinary: deferred Extremities: no e/c/c BLE's; L knee incision well healed. Trace pedal pulses B Results Imaging Additional studies: CT abdomen/pelvis: Acute diverticulitis in the distal descending colon. No perforation or abscess. Labs Result diagrams: 03/19/20 18:30 03/19/20 18:30 Labs: Laboratory Results - last 24 hr 03/19/20 03/19/20 03/19/20 18:10 18:30 18:30 WBC RBC Hgb Hct MCV MCH MCHC RDW Plt Count MPV Immature Gran % Neutrophils % Lymphocytes % Monocytes % Eosinophils % Basophils % Absolute Neutrophils Absolute Lymphocytes Absolute Monocytes Absolute Eosinophils Absolute Basophils Sodium 138 Potassium 4.0 Chloride 102 Carbon Dioxide 24.1 Anion Gap 11.9 H BUN 15 Creatinine 0.90 Estimated GFR/1.73 m2 >= 60.00 Glucose 119 H Calcium 8.5 Total Bilirubin 0.5 AST 33 ALT 44 Alkaline Phosphatase 174 H Total Protein 7.5 Albumin 4.6 Lipase 42 Urine Color Yellow Urine Clarity Clear Urine pH 5.5 Ur Specific [place] 1.025 Urine Protein Negative Urine Ketones Negative Urine Blood Negative Urine Nitrite Negative Urine Bilirubin Negative Urine Urobilinogen 0.2 Ur Leukocyte Esterase Negative Urine Glucose Negative 03/19/20 18:30 WBC 15.73 H RBC 4.39 Hgb 13.8 Hct 40.4 MCV 92.0 MCH 31.4 MCHC 34.2 RDW 13.3 Plt Count 319 MPV 10.6 Immature Gran % 0.3 Neutrophils % 75.6 Lymphocytes % 16.1 Monocytes % 6.6 Eosinophils % 1.1 Basophils % 0.3 Absolute Neutrophils 11.89 H Absolute Lymphocytes 2.53 Absolute Monocytes 1.04 H Absolute Eosinophils 0.17 Absolute Basophils 0.05 Sodium Potassium Chloride Carbon Dioxide Anion Gap BUN Creatinine Estimated GFR/1.73 m2 Glucose Calcium Total Bilirubin AST ALT Alkaline Phosphatase Total Protein Albumin Lipase Urine Color Urine Clarity Urine pH Ur Specific [place] Urine Protein Urine Ketones Urine Blood Urine Nitrite Urine Bilirubin Urine Urobilinogen Ur Leukocyte Esterase Urine Glucose Last Vital Signs Temp 37.1 C 03/19/20 23:31 Pulse 81 03/19/20 23:31 Resp 18 03/19/20 23:31 BP 119/82 03/19/20 23:31 Pulse Ox 99 03/19/20 23:31 COVID-19 Screening In the past 14 days, have you traveled outside of [place] or [place]?: NO Had IN PERSON contact w/suspected or confirmed C-19 person: No
[2020-03-20] MEDS: oxyCODONE 5 MG TAB PO ×2 (01:40→09:44)
[2020-03-20] MEDS: metroNIDAZOLE 500 MG/100 ML BAG 100 MG IVPB ×2 (01:42→09:08)
[2020-03-20] MEDS: Naproxen 500 MG TAB PO (01:43)
[2020-03-20 04:25] VITALS: BP 104/67; PULSE 73; RESP 17; TEMP 36; O2SAT 95
[2020-03-20] MEDS: Lactated Ringers 1,000 ML 125 ML IV (06:59)
[2020-03-20 07:31] LABS: Abs Immature Grans 0.03 k/cumm (0.0-0.09); Absolute Basophil Count 0.01 k/cumm (0.0-0.2); Absolute Eosinophil Count 0.12 k/cumm (0.0-0.7); Absolute Lymphocyte Count 1.48 k/cumm (1.2-3.4); Absolute Monocyte Count 0.72 k/cumm (0.11-0.7); Absolute Neutrophil Count 7.04 k/cumm (1.2-6.7); Basophils % 0.1; Eosinophils % 1.3; HGB 11.9 g/dL (12.0-15.5); Immature Grans % 0.3 %; Lymphocytes % 15.7; Mean Corp. HGB Concentration 33.1 g/dL (32.0-36.0); Mean Corpuscular Hemoglobin 30.1 pg (27.0-33.0); Mean Corpuscular Volume 91.1 fL (80-95); Mean Platelet Volume 10.8 fL (8.0-11.0); Monocytes % 7.7; Neutrophils % 74.9; Platelet Count 236 x1000/uL (130-400); RBC 3.95 m/cumm (4.00-5.20); RBC Distribution Width 12.9 % (11.7-14.6)
[2020-03-20 07:38] VITALS: BP 111/76; PULSE 74; RESP 16; TEMP 36.2; O2SAT 95
[2020-03-20 07:44] LABS: Anion Gap 8.4 mmol/L (3-11); BUN 10 mg/dL (7-18); CO2 26.6 mmol/L (21.0-32.0); CREATININE 0.81 mg/dL (0.55-1.02); Calcium 8.5 mg/dL (8.5-10.1); Chloride 107 mmol/L (98-107); Glucose 96 mg/dL (74-106); Potassium 3.9 mmol/L (3.5-5.1); Sodium 142 mmol/L (136-145)
[2020-03-20] MEDS: Losartan 25 MG TAB PO (09:05)
[2020-03-20] MEDS: Rosuvastatin 5 MG TAB PO (09:09)
[2020-03-20] MEDS: Acetaminophen 325 MG TAB PO (09:10)
--- NOTE | 2020-03-20 09:48 | SCONE_ITS ---
Date of service: 03/20/20 Time of Service: 09:48 Assessment and Plan Assessment and plan (1) Acute diverticulitis: Status: Acute Assessment and plan: A\\ Pain is improved from yesterday. No N/V. Tolerat ing clears P\\ Advance diet to soft , low fiber. If no increase in pain then OK to D/C home on Levaquin and flagyl x 10 days Continue on Low fiber diet until all symptoms are gone then slowly increase fiber. Follow up in office prn History of Present Illness History of Present Illness Chief Complaint: Diverticulitis Narrative: Debora was admitted last night with diverticultis. No abscess or free air noted on CT scan. She had her first episode of diverticulitis 2 1/2 years ago. She had another episode in October which was treated with Augmentin tid for 2 weeks. She started to feel some pain again last wednesday and was started on Augmentin again by her PCP. She was feeling well, having Bm's and eating when she developed increased pain so she came to the ER. Labs were unremarkable. She was admitted for Iv antibiotics. Patient feels that she seems to be getting diverticulitis attacs whenever she is on Naproxen. In October she was post surgery and on Naproxen. Now she is post knee surgery and was on Naproxen. No N/V. Consults Consult date: 03/20/20 Requesting physician: Harjeet Link Review of Systems Constitutional Constitutional: Denies fever(s), Denies headache(s) and Denies weakness Eyes Eyes: Denies change in vision ENT Ears, Nose, Mouth, and Throat: Denies headache(s), Denies hearing loss and Denies hoarseness Cardiovascular Cardiovascular: Denies chest pain, Denies chest pain at rest, Denies rapid heart rate, Denies irregular heart rhythm, Denies palpitations and Denies dyspnea Respiratory Respiratory: Denies cough and Denies dyspnea Gastrointestinal Gastrointestinal: Reports as per HPI, Reports abdominal pain, Denies dyspepsia and Denies heartburn Genitourinary Genitourinary: Denies hematuria and Denies difficulty voiding Musculoskeletal Musculoskeletal: Reports system reviewed and no additional complaints, except as documented Integumentary/Breasts Skin/Breast: Reports system reviewed and no additional complaints, except as documented Neurologic Neurologic: Reports system reviewed and no additional complaints, except as documented, Denies headache(s) and Denies weakness Psychiatric Psychiatric: Reports system reviewed and no additional complaints, except as documented Endocrine Endocrine: Reports system reviewed and no additional complaints, except as documented and Denies palpitations PFSH Medical History Basal cell carcinoma (12/16/15) left lower eyelid Diverticulitis Diverticulosis (Acute) Hyperlipidemia Hypertension (Chronic) Internal derangement of left knee (Inactive) Knee osteonecrosis, 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/13/20 Tobacco abuse (Acute 06/05/14) Surgical History Colonoscopy - MAC (06/24/18) Dr Heath, results - diverticulitis, repeat 10 years History of total knee arthroplasty (Acute) S/P left knee arthroscopy (Acute) Status post excisional biopsy (Acute) Left eye (skin lesion) Status post left knee replacement (Acute) Family History Mother Diabetes Stroke Hypertension Father Lymphoma Brother Myocardial infarction Brother Brain tumor Social History Smoking/Tobacco Use Status: Current-Occasional Tobacco Type: cigarettes Tobacco: How many years used: 20 Alcohol Intake: current Alcohol Intake frequency: a few times a week Alcohol type: beer and wine Drug use: Never Substance use type: does not use Household members: none Housing: house Number of Children: 2 current occupation: [employer] Current gender identity: female What is your relationship status?: Panel score (0-1 are the most socially isolated patients): 0 What type of physical activity do you participate in: regular exercise and other Details: physically active daily Seatbelt use: always Drive intox or ride w/intox 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 Working smoke detector in home: Yes Fire extinguisher in home: Yes Carbon monox detector in home: Yes Do you feel safe at home: Yes Do you feel safe in your relationship?: Yes History History 2 Para 2 Hx # Term Pregnancies Multiple births Hx # Pregnancies Ectopic pregnancies AB induced Hx Number of Living Children AB spontaneous Exam Const General: cooperative, comfortable and no acute distress Orientation: alert and oriented x3 HENMT Head: normocephalic and atraumatic Resp Effort & Inspection: normal respiratory effort Auscultation: clear to auscultation bilaterally Cardio Rate: regular rate Rhythm: regular rhythm GI Palpation: soft, no hepatosplenomegaly and tender in the LLQ (mild) Auscultation: normal bowel sounds Results Last Vital Signs Temp 97.2 F L 03/20/20 07:38 Pulse 74 03/20/20 07:38 Resp 16 03/20/20 07:38 BP 111/76 03/20/20 07:38 Pulse Ox 95 03/20/20 07:38 Labs Result diagrams: 03/20/20 06:22 03/20/20 06:22 Labs: Laboratory Results - last 24 hr 03/19/20 03/19/20 03/19/20 18:10 18:30 18:30 WBC RBC Hgb Hct MCV MCH MCHC RDW Plt Count MPV Immature Gran % Neutrophils % Lymphocytes % Monocytes % Eosinophils % Basophils % Absolute Neutrophils Absolute Lymphocytes Absolute Monocytes Absolute Eosinophils Absolute Basophils Sodium 138 Potassium 4.0 Chloride 102 Carbon Dioxide 24.1 Anion Gap 11.9 H BUN 15 Creatinine 0.90 Estimated GFR/1.73 m2 >= 60.00 Glucose 119 H Calcium 8.5 Magnesium Total Bilirubin 0.5 AST 33 ALT 44 Alkaline Phosphatase 174 H Total Protein 7.5 Albumin 4.6 Lipase 42 Urine Color Yellow Urine Clarity Clear Urine pH 5.5 Ur Specific [place] 1.025 Urine Protein Negative Urine Ketones Negative Urine Blood Negative Urine Nitrite Negative Urine Bilirubin Negative Urine Urobilinogen 0.2 Ur Leukocyte Esterase Negative Urine Glucose Negative 03/19/20 03/20/20 03/20/20 18:30 06:22 06:22 WBC 15.73 H 9.40 D RBC 4.39 3.95 L Hgb 13.8 11.9 L Hct 40.4 36.0 MCV 92.0 91.1 MCH 31.4 30.1 MCHC 34.2 33.1 RDW 13.3 12.9 Plt Count 319 236 MPV 10.6 10.8 Immature Gran % 0.3 0.3 Neutrophils % 75.6 74.9 Lymphocytes % 16.1 15.7 Monocytes % 6.6 7.7 Eosinophils % 1.1 1.3 Basophils % 0.3 0.1 Absolute Neutrophils 11.89 H 7.04 H Absolute Lymphocytes 2.53 1.48 Absolute Monocytes 1.04 H 0.72 H Absolute Eosinophils 0.17 0.12 Absolute Basophils 0.05 0.01 Sodium 142 Potassium 3.9 Chloride 107 Carbon Dioxide 26.6 Anion Gap 8.4 BUN 10 Creatinine 0.81 Estimated GFR/1.73 m2 >= 60.00 Glucose 96 Calcium 8.5 Magnesium 2.0 Total Bilirubin AST ALT Alkaline Phosphatase Total Protein Albumin Lipase Urine Color Urine Clarity Urine pH Ur Specific [place] Urine Protein Urine Ketones Urine Blood Urine Nitrite Urine Bilirubin Urine Urobilinogen Ur Leukocyte Esterase Urine Glucose
--- NOTE | 2020-03-20 10:28 | W.PM.DS.N ---
Date of service: 03/20/20 Time of Service: 10:29 DS: Diagnosis Discharge Diagnosis (1) Acute diverticulitis: Status: Acute Discharge Plan Disposition Patient Disposition: HOME Condition: Improving Discharge Details Chief Complaint: Abd Prob Reason For Visit: ACUTE DIVERTICULITIS Admit Date/Time: 03/19/20 20:12 Admit Provider: Dee Magallon Attending Provider: Dee Magallon Primary Care Provider: Rik Abebe ED Provider: Gideon Sosa Hospital Course Hospital Course: This is a 59 year old female with history of diverticulosis and two prior episodes of diverticulitis. This current episode of diverticulitis has been going on for about 9-10 days and the patient has been on augmentin TID, prescribed by her PCP's office, for a week. When she first started taking augmentin, she did feel better, but then developed worsening LLQ pain. She has not had any diarrhea or constipation, has had no blood in stool, no fevers and has not had any vomiting. Her ED evaluation in the ED included a CT scan that showed no perforation or abscess of her diverticulitis. She was admitted under hospitalist services for inpatient treatment for failed outpatient oral antibiotics. She was placed on IV hydration IV Flagyl and IV Levaquin. Overnight she remained afebrile hemodynamically stable had no stools and in the morning was tolerating p.o. fluids. A surgical consult was placed and she will follow-up outpatient after completing her course of antibiotics. She is requesting discharge to home so will be discharged home on 1 week of oral Flagyl and Levaquin. She will be given a small supply of oxycodone to use for severe pain not managed by acetaminophen. Also of note it appears all her episodes of diverticulitis have been associated with NSAID use. She has been advised to stop taking naproxen and to use acetaminophen only. Her case and discharge plan was discussed with Dr. Haley who is in agreement Home Meds and New Rx's Prescriptions: New acetaminophen [Tylenol] 325 mg Tablet 650 mg PO Q4H PRN PRNQty: 0 RF: 0 metronidazole [Flagyl] 500 mg tablet 500 mg PO QID Qty: 28 RF: 0 levofloxacin [Levaquin] 750 mg tablet 750 mg PO DAILY Qty: 7 RF: 0 Continued (DME) [Left] knee medial bilingual medical assistant brace Qty: 1 RF: 0 losartan 25 mg tablet 25 mg PO DAILY Qty: 90 RF: 3 rosuvastatin 5 mg tablet 5 mg PO DAILY Qty: 90 RF: 3 aspirin 81 mg tablet,delayed release (DR/EC) 81 mg PO BID Qty: 60 RF: 0 acetaminophen 500 mg tablet 1,000 mg PO PRN PRN (Reason: pain) RF: 0 oxycodone 5 mg tablet 5 mg PO BID MDD 10mg PRN (Reason: pain) Qty: 10 RF: 0 Discontinued naproxen 500 mg tablet 500 mg PO BID Qty: 60 RF: 1 amoxicillin-pot clavulanate 875-125 mg tablet 1 tab PO TID Qty: 30 RF: 0 Discharge Instructions Instructions: Diverticulitis (DC) Additional Instructions: advance diet slowly as tolerated take all medications as directed, even if you feel better. Referrals: Claudia Queen MD [ [facility] STAFF PHYSICIAN] - Rik Abebe DO [Primary Care Provider] - Activity:: Activity as Tolerated Equipment/Supplies:: No Equipment Needed Diet:: As Tolerated Discharge Orders Discharge Orders: Discharge Order (Routine); Ordered 03/20/20 Ordered By: Regina Acuña DS: Summary Status at Discharge Functional status at discharge: independent ambulation Overall status at discharge: patient is progressing back to baseline Mental Status: mental status grossly normal Speech and Movement: speech and movement normal Mood: congruent mood Affect: normal affect Exam Const General: cooperative, healthy appearing, comfortable, no acute distress and well developed Nutritional Appearance: overweight Orientation: alert, awake and oriented x3 HENMT Head: normal to inspection, normocephalic and atraumatic Mouth: oral mucosae normal Resp Effort & Inspection: normal respiratory effort Auscultation: clear to auscultation bilaterally Cardio Rate: regular rate Rhythm: regular rhythm GI Inspection: normal to inspection Palpation: soft, not firm, no guarding, no masses, not rigid and tender in the LLQ and in the LUQ Skin General skin exam: no rashes or lesions noted Neuro General: patient alert, patient awake and patient oriented x3 Cranial Nerves: CN's II-XI intact bilaterally Extrem General: normal to inspection and full ROM Psych Mental Status: mental status grossly normal Speech and Movement: speech and movement normal Mood: congruent mood Affect: normal affect DS: Data Vitals/I&O Vitals and I&O: Vital Signs Temperature 36.2 C L 03/20/20 07:38 Temperature Source Tympanic 03/20/20 07:38 Pulse 74 03/20/20 07:38 Pulse Rhythm Regular 03/20/20 07:30 Respiratory Rate 16 03/20/20 07:38 Respiratory Effort Non-Labored 03/20/20 07:30 Respiratory Depth Normal 03/20/20 07:30 Respiratory Pattern Normal 03/20/20 07:30 Blood Pressure 111/76 03/20/20 07:38 Pulse Oximetry 95 03/20/20 07:38 Oxygen Delivery Method Room Air 03/20/20 07:38 Oxygen Flow Rate 0 03/20/20 07:38 Pain Level 5 03/20/20 09:44 Comment 03/20/20 04:25 Intake & Output 03/19/20 03/19/20 03/20/20 11:59 23:59 11:59 Intake Total 100 / 100 1600 / 1600 Output Total 1500 / 1500 Balance 100 / 100 100 / 100 Weight 75.296 kg 76.2 kg Intake: IV 100 / 100 1100 / 1100 Oral 500 / 500 Output: Urine 1500 / 1500 Other: Urine Color Yellow Urine Appearance Clear Comment 2 voids for 900 Voiding Methods Toilet Data Completed and Pending Labs on day of discharge: Labs from last 24 hours 03/20/20 03/20/20 03/20/20 06:22 06:22 06:22 WBC 9.40 D RBC 3.95 L Hgb 11.9 L Hct 36.0 MCV 91.1 MCH 30.1 MCHC 33.1 RDW 12.9 Plt Count 236 MPV 10.8 Immature Gran % 0.3 Neutrophils % 74.9 Lymphocytes % 15.7 Monocytes % 7.7 Eosinophils % 1.3 Basophils % 0.1 Absolute Neutrophils 7.04 H Absolute Lymphocytes 1.48 Absolute Monocytes 0.72 H Absolute Eosinophils 0.12 Absolute Basophils 0.01 Sodium 142 Potassium 3.9 Chloride 107 Carbon Dioxide 26.6 Anion Gap 8.4 BUN 10 Creatinine 0.81 Estimated GFR/1.73 m2 >= 60.00 Glucose 96 Calcium 8.5 Magnesium 2.0 Total Bilirubin AST ALT Alkaline Phosphatase Total Protein Albumin Lipase 25-OH Vitamin D Total Pending Urine Color Urine Clarity Urine pH Ur Specific [place] Urine Protein Urine Ketones Urine Blood Urine Nitrite Urine Bilirubin Urine Urobilinogen Ur Leukocyte Esterase Urine Glucose COVID-19 PCR Nasopharyn COVID-19 PCR Ref Test Perform Site 03/19/20 03/19/20 03/19/20 20:30 18:30 18:30 WBC 15.73 H RBC 4.39 Hgb 13.8 Hct 40.4 MCV 92.0 MCH 31.4 MCHC 34.2 RDW 13.3 Plt Count 319 MPV 10.6 Immature Gran % 0.3 Neutrophils % 75.6 Lymphocytes % 16.1 Monocytes % 6.6 Eosinophils % 1.1 Basophils % 0.3 Absolute Neutrophils 11.89 H Absolute Lymphocytes 2.53 Absolute Monocytes 1.04 H Absolute Eosinophils 0.17 Absolute Basophils 0.05 Sodium 138 Potassium 4.0 Chloride 102 Carbon Dioxide 24.1 Anion Gap 11.9 H BUN 15 Creatinine 0.90 Estimated GFR/1.73 m2 >= 60.00 Glucose 119 H Calcium 8.5 Magnesium Total Bilirubin 0.5 AST 33 ALT 44 Alkaline Phosphatase 174 H Total Protein 7.5 Albumin 4.6 Lipase 25-OH Vitamin D Total Urine Color Urine Clarity Urine pH Ur Specific [place] Urine Protein Urine Ketones Urine Blood Urine Nitrite Urine Bilirubin Urine Urobilinogen Ur Leukocyte Esterase Urine Glucose COVID-19 PCR Pending Nasopharyn COVID-19 PCR Pending Ref Test Perform Site Pending 03/19/20 03/19/20 18:30 18:10 WBC RBC Hgb Hct MCV MCH MCHC RDW Plt Count MPV Immature Gran % Neutrophils % Lymphocytes % Monocytes % Eosinophils % Basophils % Absolute Neutrophils Absolute Lymphocytes Absolute Monocytes Absolute Eosinophils Absolute Basophils Sodium Potassium Chloride Carbon Dioxide Anion Gap BUN Creatinine Estimated GFR/1.73 m2 Glucose Calcium Magnesium Total Bilirubin AST ALT Alkaline Phosphatase Total Protein Albumin Lipase 42 25-OH Vitamin D Total Urine Color Yellow Urine Clarity Clear Urine pH 5.5 Ur Specific [place] 1.025 Urine Protein Negative Urine Ketones Negative Urine Blood Negative Urine Nitrite Negative Urine Bilirubin Negative Urine Urobilinogen 0.2 Ur Leukocyte Esterase Negative Urine Glucose Negative COVID-19 PCR Nasopharyn COVID-19 PCR Ref Test Perform Site [facility] Medical History Basal cell carcinoma (12/16/15) left lower eyelid Diverticulitis Diverticulosis (Acute) Hyperlipidemia Hypertension (Chronic) Internal derangement of left knee (Inactive) Knee osteonecrosis, 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/13/20 Tobacco abuse (Acute 06/05/14) Surgical History Colonoscopy - MAC (06/24/18) Dr Heath, results - diverticulitis, repeat 10 years History of total knee arthroplasty (Acute) S/P left knee arthroscopy (Acute) Status post excisional biopsy (Acute) Left eye (skin lesion) Status post left knee replacement (Acute) Family History Mother Diabetes Stroke Hypertension Father Lymphoma Brother Myocardial infarction Brother Brain tumor Social History Smoking/Tobacco Use Status: Current-Occasional Tobacco Type: cigarettes Tobacco: How many years used: 20 Alcohol Intake: current Alcohol Intake frequency: a few times a week Alcohol type: beer and wine Drug use: Never Substance use type: does not use Household members: none Housing: house Number of Children: 2 current occupation: [employer] Current gender identity: female What is your relationship status?: Panel score (0-1 are the most socially isolated patients): 0 What type of physical activity do you participate in: regular exercise and other Details: physically active daily Seatbelt use: always Drive intox or ride w/intox 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
[2020-03-20 12:45] LABS: COVID-19 RT-PCR UVMMC Result Negative (Negative)
--- NOTE | 2020-03-20 16:39 | INITIAL_ITS ---
- If Service Date Differs Date of service: 03/20/20 Time of Service: 16:39 Care Management Initial Assess REASON FOR HOSPITALIZATION:: Acute Diverticulitis PAST MEDICAL HISTORY/PAST SURGICAL HISTORY:: Medical History . Basal cell carcinoma (12/16/15). left lower eyelid. Diverticulitis. Diverticulosis (Acute). Hyperlipidemia. Hypertension (Chronic). Internal derangement of left knee (Inactive). Knee osteonecrosis, left (Resolved). s/p L TKA 02/13/20. Tobacco abuse (Acute 06/05/14). Surgical History . Colonoscopy - MAC (06/24/18). Dr Heath, results - diverticulitis, repeat 10 years. History of total knee arthroplasty (Acute). S/P left knee arthroscopy (Acute). Status post excisional biopsy (Acute). Left eye (skin lesion). 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 Her son also lives in the building, and is supportive if she needs anything. She works at [employer], but has been out on medical leave. She is independent at baseline. CURRENT FUNCTIONAL STATUS:: Debora was walking around her room when CM met with her. She reported that she was being discharged, and was just waiting for the RN to answer some medication questions she had. She was pleasant and engaged in c onversation. CM will continue to follow. ADVANCE DIRECTIVES:: None on file. Has patient been provided with info about the portal/API?: Yes Did the patient sign up for the portal?: Yes (previously signed up) CODE STATUS:: Full Code INSURANCE COVERAGE / FINANCIAL ISSUES:: Health Plans/ Fin assist 100% CURRENT HOME/COMMUNITY SERVICES/EQUIPMENT:: Debora currently does not have any equipment or services in the community. PRIMARY CARE PHYSICIAN:: Rik Abebe POTENTIAL DISCHARGE NEEDS:: Evalutations for further needs, follow up appointments. PATIENT/FAMILY EDUCATION NEEDS:: Review discharge instructions regarding activity levels and medications, discussion of self care needs including ask me three ANTICIPATED BARRIERS TO DISCHARGE:: None identified. TRANSPORTATION:: Via private vehicle by friends. PLAN:: Anticipate Debora will return home when medically cleared with no services. She will follow up with her PCP and discharge plan of care. She will be driven home by friends via private vehicle. CM will continue to follow.
--- NOTE | 2020-03-20 16:44 | PDOC.CMDIS ---
- If Service Date Differs Date of service: 03/20/20 Time of Service: 16:44 LACE Index Scoring Tool - Questions: Length of Stay (in days): 2 Acuity (Admit via E.D.?): Yes Comorbidities: Any Tumor E.D. Visits: 2 - Answers: Total Score: 9 Risk of Readmission: Low Risk Care Management Discharge Reason for Hospitalization: Acute Diverticulitis Discharge Plan: Debora will return home with no additional services at this time. She will follow up with her PCP and discharge plan of care. Her friends will drive her home via private vehicle. She is happy to be going home. Patient/Family Education Needs: Review discharge instructions regarding activity levels and medications, discussion of self care needs including ask me three.
[2020-03-21 04:56] LABS: Vitamin D 25 Total 16.7 ng/ml (30-100)
== END 2020-03-20 13:44 | disposition home or self-care (01) | DRG 392 ==
LOC: ER 21:08 → MS 21:11
PROVIDERS: Admitting Provider Internal Medicine; Emergency Provider Student in an Organized Health Care Education/Training Program; PCP Family Medicine; Visit Provider Internal Medicine
DX: K57.32 Diverticulitis of large intestine without perforation or abscess without bleeding (principal); R10.32 Left lower quadrant pain; Z87.19 Personal history of other diseases of the digestive system; I10 Essential (primary) hypertension; E78.5 Hyperlipidemia, unspecified; Z47.1 Aftercare following joint replacement surgery; Z96.652 Presence of left artificial knee joint; F17.210 Nicotine dependence, cigarettes, uncomplicated
CPT/HCPCS: 36415; 80048; 80053; 82306; 83690; 96365; 96368; 99223; 99239; 99252; 99285; J1650; U0003; 74177; 81003; 83735; 85025; J1956; J3490

== ENCOUNTER 2020-04-19 18:04 | Inpatient (IN) | payer OTHER, SELFPAY ==
[2020-04-19 18:15] VITALS: BP 135/82; PULSE 95; RESP 12; TEMP 36.6; O2SAT 99
--- NOTE | 2020-04-19 18:28 | ED.GENADUL_ITS ---
Discharge Plan Disposition Patient Disposition: [facility] Condition: Fair Discharge Details Chief Complaint: Abd Prob Clinical Impression: Acute diverticulitis Admit Date/Time: 04/19/20 20:51 Admit Provider: Mariana Castro Attending Provider: Mariana Castro Primary Care Provider: Rik Abebe ED Provider: Adriana Joseph Discharge Data Discharge Date/Time-TO BE ENTERED AT DEPARTURE: 04/19/20 21:34 Medical Decision Making Patient is a pleasant 59-year-old female presenting to complaint of left lower quadrant pain. Patient was diagnosed with diverticulitis 1 month ago. She was hospitalized overnight after outpatient failure. Was discharged home on Flagyl and Levaquin. Subsequently followed up with her primary care and did report at that point having resolution of her symptoms. Patient has been pain-free since April 02. However, she reports of the past several hours she has been having severe pain. States this pain is worse than when she was hospitalized with a diverticulitis. Has not had any previous abdominal surgeries. No fevers or chills. Denies any nausea vomiting. No change in bowel habits. She reports she has been adhering to the recommendations. Has been using high-fiber diet. Has not use any type of pain medication. Her previous bout of diverticulitis was thought to be linked to narcotics in the postoperative setting for a left TKA. On exam, patient does appear uncomfortable. Clear, normal cardiac exam. She is quite tender in the left lower quadrant with rebound tenderness and guarding. She does appear nontoxic. Her history is most concerning for recurrent diverticulitis. This seems to be worse than her previous pain, will repeat imaging to evaluate for potential abscess or perforation. Also obtain baseline labs. Patient I discussed options for pain med management. At this point, she would prefer IV acetaminophen. Labs reviewed. Patient has leukocytosis with a white count of 14.7 and left shift. Anion gap slightly elevated 12.8. Labs otherwise without significant abnormality. Urinalysis normal. FINDINGS: Liver: The liver appears mildly fatty. Focal fat in the liver near the fissure for the ligamentum teres. Gallbladder and bile ducts: No calcified stones. No ductal dilation. Pancreas: Fatty replacement of the pancreas with no evidence of acute or chronic pancreatitis. Spleen: The spleen is upper limits of normal in size similar to the previous study. Adrenals: Intermediate density indeterminate 2 cm left adrenal nodule and or thickening similar to prior. Statistically adenoma versus hypertrophy. Follow-up as per institutional protocol. Normal morphology of the right adrenal gland. Kidneys and ureters: No hydronephrosis. No renal masses. Stomach and bowel: New, moderate acute appearing diverticulitis affecting the proximal sigmoid colon. Right colonic, descending and sigmoid colonic diverticulosis. A short segment of acute appearing inflammation involving the proximal sigmoid colon particularly of a dominant 19 mm diverticulum. Surrounding inflammatory changes in the pericolic fat. The degree of colonic wall thickening is mild and compared to the previous study slightly different in distribution slightly more distal and eccentric. The previous study may have reflected a colitis incident I vertical itis given the appearance on today's in conjunction with the previous imaging. No ischemia or obstruction. No acute pathology in the small bowel. Appendix: No evidence of appendicitis. Intraperitoneal space: No free air. No significant fluid collection. Vasculature: No abdominal aortic aneurysm. Lymph nodes: No significantly enlarged lymph nodes. Bladder: The urinary bladder is distended. No urinary bladder wall thickening. The urinary bladder appears slightly prolapsed into the pelvis. Reproductive: Unremarkable as visualized. Bones/joints: No acute fracture or subluxation. Soft tissues: No suspicious lesions. IMPRESSION: 1. New, moderate acute appearing diverticulitis affecting the proximal sigmoid colon. Details as above. 2. Additional findings as described Discussed these findings with the patient. Consulted with general surgeon, Dr. Murray. I am concerned that Ms. anne her recurrence may be incomplete soni atment of her previous. We did discuss treatment options. She feels the patient should be admitted for IV antibiotics and further observation. She recommended Cipro and Flagyl IV. This was started here. At her request, I will place holding orders. Patient does report feeling much improved with the IV acetaminophen. He is now rating the pain at a 3 out of 10. I did discuss admission with the patient who is in agreement. All of her questions and concerns were addressed and she is been this plan. HPI General Mode of arrival: ambulatory . Date/Time Provider Initiated Documentation: 04/19/20 18:28 . Limitations to Documentation: no limitations . Information obtained by: patient, RN notes reviewed and old records reviewed . History of Present Illness 59 year old F presents to the emergency department with the chief complaint of Left lower quadrant pain, described as moderate and similar to prior episodes, with intensity rated at 4. Quality is described as stabbing, and is localized to the abdomen. Patient reports no radiation. Patient started experiencing this hour(s) and it has been constant. No relieving factors improve symptom(s), No exacerbating factors reported . Patient notes no other symptoms.. 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 #1 ea 11/30/19 04/02/20 losartan 25 mg tablet 25 mg PO DAILY #90 tab-cap 12/28/19 04/19/20 rosuvastatin 5 mg tablet 5 mg PO DAILY #90 tab 02/05/20 04/19/20 acetaminophen 1,000 mg PO PRN PRN 03/19/20 04/19/20 acetaminophen [Tylenol] 650 mg PO Q4H PRN PRN #0 tab 03/20/20 04/19/20 Previous Rx's Medication Instructions Recorded [Left] knee medial program development manager brace #1 ea 11/30/19 losartan 25 mg tablet 25 mg PO DAILY #90 tab-cap 12/28/19 rosuvastatin 5 mg tablet 5 mg PO DAILY #90 tab 02/05/20 acetaminophen [Tylenol] 650 mg PO Q4H PRN PRN #0 tab 03/20/20 Allergies Allergy/AdvReac Type Severity Reaction Status Date / Time gabapentin Allergy Severe coughing, Verified 04/19/20 20:39 swallowing issues, tongue swelling bacitracin Allergy Intermediate Skin Rash Verified 04/19/20 20:39 Sulfa (Sulfonamide Allergy RASH, Verified 04/19/20 20:39 Antibiotics) DIFFICULTY BREATHING atorvastatin [From Lipitor] AdvReac Severe coughing Verified 04/19/20 20:39 General Stated Complaint: Abd Prob JEAN PAUL: 3 Review of Systems Constitutional Constitutional: Reports as per HPI, Denies chills, Denies fatigue, Denies fever(s) and Denies headache(s) ENT Ears, Nose, Mouth, and Throat: Denies headache(s) Cardiovascular Cardiovascular: Reports as per HPI, Denies chest pain and Denies dyspnea Respiratory Respiratory: Reports as per HPI, Denies cough and Denies dyspnea Gastrointestinal Gastrointestinal: Reports as per HPI Musculoskeletal Musculoskeletal: Reports as per HPI and Denies back pain Integumentary/Breasts Skin/Breast: Reports as per HPI and Denies rash Neurologic Neurologic: Reports as per HPI and Denies headache(s) Endocrine Endocrine: Denies fatigue [facility] Medical History Basal cell carcinoma (12/16/15) left lower eyelid Diverticulitis Diverticulosis (Acute) Hyperlipidemia Hypertension (Chronic) Internal derangement of left knee (Inactive) Knee osteonecrosis, 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/13/20 Tobacco abuse (Acute 06/05/14) Surgical History Colonoscopy - MAC (06/24/18) Dr Heath, results - diverticulitis, repeat 10 years History of total knee arthroplasty (Acute 02/13/20) S/P left knee arthroscopy (Acute) Status post excisional biopsy (Acute) Left eye (skin lesion) Family History Mother Diabetes Stroke Hypertension Father Lymphoma Brother Myocardial infarction Brother Brain tumor Social History Smoking/Tobacco Use Status: Current-Occasional Tobacco Type: cigarettes Tobacco: How many years used: 20 Alcohol Intake: current Alcohol Intake frequency: a few times a week Alcohol type: beer and wine Drug use: Never Substance use type: does not use Household members: none Housing: house Number of Children: 2 current occupation: [employer] Current gender identity: female What is your relationship status?: Panel score (0-1 are the most socially isolated patients): 0 What type of physical activity do you participate in: regular exercise and other Details: physically active daily Seatbelt use: always Drive intox or ride w/intox train driver: No Working smoke detector in home: Yes Fire extinguisher in home: Yes Carbon monox detector in home: Yes Do you feel safe at home: Yes Do you feel safe in your relationship?: Yes History History 2 Para 2 Hx # Term Pregnancies Multiple births Hx # Pregnancies Ectopic pregnancies AB induced Hx Number of Living Children AB spontaneous Exam Const General: cooperative, healthy appearing, uncomfortable, no acute distress and well developed Nutritional Appearance: average body habitus and well nourished Orientation: alert and awake HENMT Head: normal to inspection Mouth: moist mucous membranes Resp Effort & Inspection: normal respiratory effort, able to speak in complete sentences and no respiratory distress Auscultation: clear to auscultation bilaterally, no rales, no rhonchi and no wheezes Cardio Rate: regular rate Rhythm: regular rhythm Heart Sounds: S1 normal and S2 normal GI Inspection: normal to inspection, non-distended, no visible herniation and no visible pulsation Palpation: soft, no hepatosplenomegaly, not firm, guarding in the LLQ, no hernias, no masses, no pulsatile masses, not rigid and tender in the LLQ and with rebound tenderness; not at McBurney's point and Lance's sign negative Percussion: normal to percussion Auscultation: normal bowel sounds Back/Spine/Pelvis Back: no CVA tenderness Skin General skin exam: no rashes or lesions noted Trauma: no lacerations or abrasions Neuro General: patient alert and patient awake Cognition: normal cognition Speech: speech normal Gait: normal gait Psych Appearance: grossly normal and well kempt Mental Status: mental status grossly normal Speech and Movement: speech and movement normal Course Vital Signs Vital signs: Vital Signs Temperature 36.6 C 04/19/20 18:15 Pulse 95 H 04/19/20 18:15 Respiratory Rate 12 04/19/20 18:15 Blood Pressure 135/82 04/19/20 18:15 Pulse Oximetry 99 04/19/20 18:15 Temperature 36.6 C 04/19/20 18:15 Temperature Source Tympanic 04/19/20 18:15 Pulse 95 H 04/19/20 18:15 Respiratory Rate 12 04/19/20 18:15 Respiratory Effort Non-Labored 04/19/20 18:17 Blood Pressure 135/82 04/19/20 18:15 Blood Pressure Position Sitting 04/19/20 18:15 Pulse Oximetry 99 04/19/20 18:15 Oxygen Delivery Method Room Air 04/19/20 18:15 Oxygen Flow Rate 0 04/19/20 18:15 Pain Level 7 04/19/20 18:18
[2020-04-19] MEDS: ACETAMINOPHEN 1,000 MG/100 ML BTL 400 MG IVPB (19:11)
[2020-04-19] MEDS: Normal Saline 1,000 ML 1000 ML IV (19:11)
[2020-04-19 19:34] LABS: Bilirubin Negative (Negative); Blood Negative (Negative); Clarity Clear (Clear); Glucose Negative (Negative); Ketones Negative (Negative); Leukocyte Esterase Negative (Negative); Nitrite Negative (Negative); Specific Gravity <= 1.005 (1.005-1.025); Urobilinogen 0.2 EU/dL (Up TO 0.2)
[2020-04-19 19:39] LABS: Abs Immature Grans 0.05 k/cumm (0.0-0.09); Absolute Basophil Count 0.01 k/cumm (0.0-0.2); Absolute Eosinophil Count 0.15 k/cumm (0.0-0.7); Absolute Lymphocyte Count 2.29 k/cumm (1.2-3.4); Absolute Monocyte Count 0.99 k/cumm (0.11-0.7); Absolute Neutrophil Count 11.22 k/cumm (1.2-6.7); Basophils % 0.1; HCT 42.5 % (36.0-46.0); HGB 14.4 g/dL (12.0-15.5); Immature Grans % 0.3 %; Lymphocytes % 15.6; Mean Corp. HGB Concentration 33.9 g/dL (32.0-36.0); Mean Corpuscular Hemoglobin 30.3 pg (27.0-33.0); Mean Corpuscular Volume 89.5 fL (80-95); Mean Platelet Volume 10.6 fL (8.0-11.0); Monocytes % 6.7; Neutrophils % 76.3; Platelet Count 268 x1000/uL (130-400); RBC 4.75 m/cumm (4.00-5.20); RBC Distribution Width 13.4 % (11.7-14.6); White Blood Cell Count 14.71 k/cumm (4.4-10.8)
[2020-04-19 19:40] LABS: ALT 39 U/L (14-59); AST 22 U/L (15-37); Albumin 4.1 g/dL (3.4-5.0); Alkaline Phosphatase 151 U/L (46-116); Anion Gap 12.8 mmol/L (3-11); BUN 15 mg/dL (7-18); Bilirubin, Total 0.4 mg/dL (0.2-1.0); CO2 23.2 mmol/L (21.0-32.0); CREATININE 0.85 mg/dL (0.55-1.02); Calcium 8.9 mg/dL (8.5-10.1); Chloride 101 mmol/L (98-107); Glucose 95 mg/dL (74-106); Lipase 41 U/L (73-393); Potassium 3.9 mmol/L (3.5-5.1); Sodium 137 mmol/L (136-145); Total Protein 7.8 g/dL (6.4-8.2)
--- NOTE | 2020-04-19 19:49 | NUR.NOTE ---
Nursing Note: PT care transferred to Cheyenne AVILEZ. PT alert and oriented, vitals stable at this time.
[2020-04-19] MEDS: Normal Saline Flush 10 ML SYR IVP ×2 (20:02→23:45)
[2020-04-19] MEDS: Normal Saline - Diluent 50 ML VIAL IV (20:03)
--- NOTE | 2020-04-19 20:06 | DI.CT_ITS ---
EXAM: CT ABDOMEN PELVIS W CLINICAL HISTORY: severe LLQ pain, recent diverticulitis TECHNIQUE: Imaging Protocol: Axial computed tomography images with coronal and sagittal reformatted images were created and reviewed CONTRAST MATERIAL: Intravenous: Omnipaque 350 Contrast volume:100 mL Oral: No COMPARISON: CT CT ABDOMEN PELVIS W from 03/19/2020 FINDINGS: ABDOMEN: Lung Bases: Mild dependent atelectasis. Liver: Normal density. No measurable mass. Portal, Superior Mesenteric, and Splenic Veins: Unremarkable. Gallbladder and Biliary Tract: No radiodense calculus or dilation. Pancreas: Fatty infiltration. No inflammatory process. Spleen: Normal. Adrenals: Stable left adrenal nodule. Unremarkable right adrenal gland. Kidneys: Normal size, contour and axis. No radiodense stones or obstructive uropathy. No masses seen. Abdominal Aorta: Abdominal portion non-dilated. Atherosclerosis. Bowel: No obstruction. There is diverticulosis of the colon. In the proximal sigmoid colon there is again noted bowel wall thickening and pericolonic inflammation. There may be slight progression of the disease compared to the examination from 03/19/2020. No abscess or free air is identified. Appen dara is unremarkable. Peritoneal Cavity: No ascites, collection or mesenteric inflammatory response. Lymph Nodes: Within normal limits. Bones: Degenerative changes. Soft Tissues: Unremarkable. PELVIS: Bladder: Symmetric distention, no gross wall thickening. Reproductive Organs: Unremarkable as visualized. Lymph Nodes: Within normal limits. Bones: Degenerative changes. IMPRESSION: Acute diverticulitis involving the sigmoid colon. The findings appear slightly progressed since the examination from 03/19/2020. RADIATION DOSE DELIVERED: Total DLP DATA REPOSITORY: All CT scans at this facility are submitted to the National Radiology Data Registry (NRDR) Dose Index Registry (DIR) with the [employer] ([employer]). RADIATION OPTIMIZATION: All CT scans at this facility use at least one of these dose optimization te chniques: automated exposure control; mA and/or kV adjustment per patient size (includes targeted exa ms where dose is matched to clinical indication); or iterative reconstruction.
[2020-04-19] MEDS: Omnipaque 350 MG/ML 100 ML BTL IJ (20:07)
[2020-04-19 20:21] VITALS: BP 129/76; PULSE 78; RESP 16; TEMP 36.8; O2SAT 98
--- NOTE | 2020-04-19 20:22 | DI.VRAD_ITS ---
PROCEDURE INFORMATION: Exam: CT Abdomen And Pelvis With Contrast Exam date and time: 04/19/2020 18:44 Age: 59 years old Clinical indication: Abdominal pain; Localized; Left lower quadrant (llq) TECHNIQUE: Imaging protocol: Computed tomography of the abdomen and pelvis with intravenous contrast. Radiation optimization: All CT scans at this facility use at least one of these dose optimization techniques: automated exposure control; mA and/or kV adjustment per patient size (includes targeted exams where dose is matched to clinical indication); or iterative reconstruction. Contrast material: [id number]; Contrast volume: 100 ml; Contrast route: INTRAVENOUS (IV); COMPARISON: CT ABDOMEN PELVIS W 03/19/2020 18:33 FINDINGS: Liver: The liver appears mildly fatty. Focal fat in the liver near the fissure for the ligamentum teres. Gallbladder and bile ducts: No calcified stones. No ductal dilation. Pancreas: Fatty replacement of the pancreas with no evidence of acute or chronic pancreatitis. Spleen: The spleen is upper limits of normal in size similar to the previous study. Adrenals: Intermediate density indeterminate 2 cm left adrenal nodule and or thickening similar to prior. Statistically adenoma versus hypertrophy. Follow-up as per institutional protocol. Normal morphology of the right adrenal gland. Kidneys and ureters: No hydronephrosis. No renal masses. Stomach and bowel: New, moderate acute appearing diverticulitis affecting the proximal sigmoid colon. Right colonic, descending and sigmoid colonic diverticulosis. A short segment of acute appearing inflammation involving the proximal sigmoid colon particularly of a dominant 19 mm diverticulum. Surrounding inflammatory changes in the pericolic fat. The degree of colonic wall thickening is mild and compared to the previous study slightly different in distribution slightly more distal and eccentric. The previous study may have reflected a colitis incident I vertical itis given the appearance on today's in conjunction with the previous imaging. No ischemia or obstruction. No acute pathology in the small bowel. Appendix: No evidence of appendicitis. Intraperitoneal space: No free air. No significant fluid collection. Vasculature: No abdominal aortic aneurysm. Lymph nodes: No significantly enlarged lymph nodes. Bladder: The urinary bladder is distended. No urinary bladder wall thickening. The urinary bladder appears slightly prolapsed into the pelvis. Reproductive: Unremarkable as visualized. Bones/joints: No acute fracture or subluxation. Soft tissues: No suspicious lesions. IMPRESSION: 1. New, moderate acute appearing diverticulitis affecting the proximal sigmoid colon. Details as above. 2. Additional findings as described. Dictated and Authenticated by: Cathryn Otero MD. Ordering:CECY Wright MD
[2020-04-19] MEDS: CIPROFLOXACIN 400 MG/200 ML BAG 200 MG IVPB (21:02)
--- NOTE | 2020-04-19 21:06 | W.PM.HP.N ---
Date of service: 04/20/20 Time of Service: 11:00 Assessment and Plan Assessment and plan (1) Acute diverticulitis: Status: Acute (2) Tobacco abuse: Status: Acute (3) History of total knee arthroplasty: Status: Acute Qualifiers: Laterality: left Qualified Code(s): Z96.652 - Presence of left artificial knee joint (4) Diverticulitis of large intestine without perforation or abscess with bleeding: Status: Resolved Assessment and plan: recurrent labs improved today still has same pain cont IV abx supportive care We had a long discussion about the recurrent infections. I don't think we have every completely irradicated the infection. This is her 3-4 attack in 6-12m. If we cannot get her symptom free, I think we really are getting closer to requiring surgical intervention. We cannot seem to get the infection completely knocked out of her. Will see how she progresses the next few days. Ideally we would want to operate when she is not having symptoms to avoid ostomy. But I'm also worried that is she continues to have repeat infections, that one of them might be severe enough to seed her new joint. We will continue to follow her closely. Pt is getting very frustrated by her lack of progress and concerned about job security. currently no sign sof peritonitis or need for acute surgical interventions and will continue w/ conservative medical management. History of Present Illness Consults Consult date: 04/20/20 Narrative: pt seen adn examined. PT still doesn't feel much better. Still has same pain in left mid upper abdom. no n/v. She is thirsty. She is up walking. She is doing well w/ her knee. NO pain/redness/swelling. No fever or chills. This is the pt thirs episode of diverticulits. She was off the po abx (levaquin and flagyl) for 12 days and started to have pain in Left side last pm adn came into the ED. Pt is adamant that she was falling very strict dietary guidelines and has not been straining to go to the BR. She denies any unusual foods or activities adn can't think of any triggers. She denies any cough/productive sputum/fevers/dysuria/leg pain or swelling. She has been walking lots adn no pain or swelling in knee. Review of Systems All systems reviewed & are unremarkable except as noted in HPI and below PFSH Medical History Basal cell carcinoma (12/16/15) left lower eyelid Diverticulitis Diverticulosis (Acute) Hyperlipidemia Hypertension (Chronic) Internal derangement of left knee (Inactive) Knee osteonecrosis, 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/13/20 Tobacco abuse (Acute 06/05/14) Surgical History Colonoscopy - MAC (06/24/18) Dr Heath, results - diverticulitis, repeat 10 years History of total knee arthroplasty (Acute 02/13/20) S/P left knee arthroscopy (Acute) Status post excisional biopsy (Acute) Left eye (skin lesion) Family History Mother Diabetes Stroke Hypertension Father Lymphoma Brother Myocardial infarction Brother Brain tumor Social History Smoking/Tobacco Use Status: Current-Occasional Tobacco Type: cigarettes Tobacco: How many years used: 20 Alcohol Intake: current Alcohol Intake frequency: a few times a week Alcohol type: beer and wine Drug use: Never Substance use type: does not use Household members: none Housing: house Number of Children: 2 current occupation: [employer] Current gender identity: female What is your relationship status?: Panel score (0-1 are the most socially isolated patients): 0 What type of physical activity do you participate in: regular exercise and other Details: physically active daily Seatbelt use: always Drive intox or ride w/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 Working smoke detector in home: Yes Fire extinguisher in home: Yes Carbon monox detector in home: Yes Do you feel safe at home: Yes Do you feel safe in your relationship?: Yes History History 2 Para 2 Hx # Term Pregnancies Multiple births Hx # Pregnancies Ectopic pregnancies AB induced Hx Number of Living Children AB spontaneous Meds Home Medications and Allergies Home Medications Medication Instructions Recorded Confirmed Type [Left] knee 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 #1 ea 11/30/19 04/02/20 Rx losartan 25 mg tablet 25 mg PO DAILY #90 tab-cap 12/28/19 04/19/20 Rx rosuvastatin 5 mg tablet 5 mg PO DAILY #90 tab 02/05/20 04/19/20 Rx acetaminophen 1,000 mg PO PRN PRN 03/19/20 04/19/20 History acetaminophen [Tylenol] 650 mg PO Q4H PRN PRN #0 tab 03/20/20 04/19/20 Rx Allergies Allergy/AdvReac Type Severity Reaction Status Date / Time gabapentin Allergy Severe coughing, Verified 04/19/20 20:39 swallowing issues, tongue swelling bacitracin Allergy Intermediate Skin Rash Verified 04/19/20 20:39 Sulfa (Sulfonamide Allergy RASH, Verified 04/19/20 20:39 Antibiotics) DIFFICULTY BREATHING atorvastatin [From Lipitor] AdvReac Severe coughing Verified 04/19/20 20:39 Exam Const General: cooperative, healthy appearing, comfortable, no acute distress, well developed and well groomed Nutritional Appearance: average body habitus and well nourished Orientation: alert, awake and oriented x3 HENMT Head: normal to inspection, normocephalic and atraumatic Ears: hearing grossly normal bilaterally and external ears normal General nose exam: external nose normal Face and sinus: normal facial exam and sinuses nontender Mouth: oral mucosae normal, lip normal, tongue normal and moist mucous membranes Teeth and gingiva: dentition normal Eyes General: appearance normal, both eyes and all related structures Conjunctivae: conjunctivae normal Sclera: sclerae normal Pupils: PERRL Neck Neck: normal visual inspection and full ROM Chest Chest: normal inspection of the chest Resp Effort & Inspection: normal respiratory effort, able to speak in complete sentences, no cough, no nasal flaring, not tachypneic and no use of accessory muscles Auscultation: clear to auscultation bilaterally, no rales, no rhonchi and no wheezes Cardio Jugular venous pressure: no JVD Rate: regular rate Rhythm: regular rhythm GI Inspection: normal to inspection, no edema and non-distended Palpation: soft, no masses, tender (localized rebound/guarding. no diffuse peritontis. ) in the LLQ and No ascites Auscultation: normal bowel sounds Skin General skin exam: no rashes or lesions noted Trauma: no lacerations or abrasions Neuro General: patient alert, patient oriented x3, oriented, gait normal, moves all extremities, no focal motor deficits and CN's II-XI intact bilaterally Cognition: normal cognition Speech: speech normal Gait: normal gait Motor: muscle tone normal throughout Extrem General: normal to inspection, full ROM and no clubbing, cyanosis or edema Other: no redness. min pain. no swelling. good ROM. min pain in medial aspect. Psych Appearance: grossly normal and well kempt Mental Status: mental status grossly normal Speech and Movement: speech and movement normal Affect: normal affect Results Labs Result diagrams: 04/20/20 06:50 04/19/20 19:13 Labs: Laboratory Results - last 24 hr 04/19/20 04/19/20 04/19/20 19:12 19:13 19:13 WBC 14.71 H RBC 4.75 Hgb 14.4 Hct 42.5 MCV 89.5 MCH 30.3 MCHC 33.9 RDW 13.4 Plt Count 268 MPV 10.6 Immature Gran % 0.3 Neutrophils % 76.3 Lymphocytes % 15.6 Monocytes % 6.7 Eosinophils % 1.0 Basophils % 0.1 Absolute Neutrophils 11.22 H Absolute Lymphocytes 2.29 Absolute Monocytes 0.99 H Absolute Eosinophils 0.15 Absolute Basophils 0.01 Sodium 137 Potassium 3.9 Chloride 101 Carbon Dioxide 23.2 Anion Gap 12.8 H BUN 15 Creatinine 0.85 Estimated GFR/1.73 m2 >= 60.00 Glucose 95 Calcium 8.9 Total Bilirubin 0.4 AST 22 ALT 39 Alkaline Phosphatase 151 H Total Protein 7.8 Albumin 4.1 Lipase 41 Urine Color Yellow Urine Clarity Clear Urine pH 6.0 Ur Specific [place] <= 1.005 Urine Protein Negative Urine Ketones Negative Urine Blood Negative Urine Nitrite Negative Urine Bilirubin Negative Urine Urobilinogen 0.2 Ur Leukocyte Esterase Negative Urine Glucose Negative Last Vital Signs Temp 36.8 C 04/19/20 20:21 Pulse 78 04/19/20 20:21 Resp 16 04/19/20 20:21 BP 129/76 04/19/20 20:21 Pulse Ox 98 04/19/20 20:21 COVID-19 Screening Have you,or household,traveled outside [place] in last 14 days?: No Had IN PERSON contact w/suspected or confirmed C-19 person: No
[2020-04-19 21:37] VITALS: BP 135/87; PULSE 77; RESP 18; TEMP 36.7; O2SAT 98
[2020-04-19] MEDS: Enoxaparin 40 MG/0.4 ML SYR SC (22:12)
[2020-04-19] MEDS: metroNIDAZOLE 500 MG/100 ML BAG 100 MG IVPB (22:12)
[2020-04-19] MEDS: Lactated Ringers 1,000 ML 125 ML IV (22:18)
[2020-04-19] MEDS: Acetaminophen 500 MG TAB 1000 MG PO (23:44)
[2020-04-19] MEDS: MEROPENEM 1 GM in Normal Saline 100 ML IVPB (23:44)
[2020-04-20] VITALS: BP 136/88; PULSE 69; RESP 18; TEMP 36.1; O2SAT 98
[2020-04-20] MEDS: Lactated Ringers 1,000 ML 125 ML IV (06:07)
[2020-04-20 07:42] LABS: Abs Immature Grans 0.02 k/cumm (0.0-0.09); Absolute Basophil Count 0.01 k/cumm (0.0-0.2); Absolute Lymphocyte Count 1.28 k/cumm (1.2-3.4); Absolute Monocyte Count 0.61 k/cumm (0.11-0.7); Absolute Neutrophil Count 5.44 k/cumm (1.2-6.7); Basophils % 0.1; Eosinophils % 1.3; HGB 12.7 g/dL (12.0-15.5); Immature Grans % 0.3 %; Lymphocytes % 17.2; Mean Corp. HGB Concentration 33.4 g/dL (32.0-36.0); Mean Corpuscular Hemoglobin 30.1 pg (27.0-33.0); Mean Platelet Volume 10.6 fL (8.0-11.0); Monocytes % 8.2; Neutrophils % 72.9; Platelet Count 238 x1000/uL (130-400); RBC 4.22 m/cumm (4.00-5.20); RBC Distribution Width 13.1 % (11.7-14.6); White Blood Cell Count 7.46 k/cumm (4.4-10.8)
[2020-04-20] MEDS: MEROPENEM 1 GM in Normal Saline 100 ML IVPB ×2 (08:23→15:26)
[2020-04-20] MEDS: Losartan 25 MG TAB PO (08:23)
[2020-04-20] MEDS: Ketorolac 30 MG/ML VIAL IVP (08:27)
[2020-04-20] MEDS: Normal Saline 1,000 ML 125 ML IV ×2 (09:40→18:28)
[2020-04-20 12:02] LABS: COVID-19 RT-PCR UVMMC Result Negative (Negative)
[2020-04-20 15:18] VITALS: BP 137/90; PULSE 67; RESP 18; TEMP 36.3; O2SAT 100
[2020-04-20] MEDS: Dicyclomine 20 MG TAB PO (15:26)
[2020-04-20 18:50] VITALS: BP 132/85; PULSE 62; RESP 18; TEMP 36.5; O2SAT 100
--- NOTE | 2020-04-20 19:30 | PDOC.CMIN ---
- If Service Date Differs Date of service: 04/20/20 Time of Service: 19:30 Care Management Initial Assess REASON FOR HOSPITALIZATION:: Acute diverticulitis PAST MEDICAL HISTORY/PAST SURGICAL HISTORY:: Medical History . Basal cell carcinoma (12/16/15). left lower eyelid. Diverticulitis. Diverticulosis (Acute). Hyperlipidemia. Hypertension (Chronic). Internal derangement of left knee (Inactive). Knee osteonecrosis, left (Resolved). s/p L TKA 02/13/20. Tobacco abuse (Acute 06/05/14). Surgical History . Colonoscopy - MAC (06/24/18). Dr Heath, results - diverticulitis, repeat 10 years. History of total knee arthroplasty (Acute 02/13/20). S/P left knee arthroscopy (Acute). Status post excisional biopsy (Acute). 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 She has one son who lives in another apartment in her building and she has 2 daughters. 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 She is independent at baseline and receives no community services. CURRENT FUNCTIONAL STATUS:: Debora was sitting up in bed when CM met with her. She was pleasant and agreeable to conversation. Debora described the course of her diverticulitis over the past few years and the probability that she will need surgery. She admitted to being nervous and expressed a desire to get a second opinion from a physician at [facility]. ADVANCE DIRECTIVES:: Has a copy at home. CM offered to assist with their completion when/if Debora chose to do so. Has patient been provided with info about the portal/API?: Yes CODE STATUS:: Full Code INSURANCE COVERAGE / FINANCIAL ISSUES:: [employer] CURRENT HOME/COMMUNITY SERVICES/EQUIPMENT:: none PRIMARY CARE PHYSICIAN:: Rik Abebe POTENTIAL DISCHARGE NEEDS:: Follow up with surgeon and discharge plan of care PATIENT/FAMILY EDUCATION NEEDS:: Discharge plan, limitations, follow up plan, Ask Me Three TRANSPORTATION:: via private vehicle with family PLAN:: Debora will likely be discharged home with no services. She will follow up with her surgeon and discharge plan of care. CM will continue to support Debora and assess for discharge needs.
[2020-04-20] MEDS: Enoxaparin 40 MG/0.4 ML SYR SC (21:25)
[2020-04-21] MEDS: MEROPENEM 1 GM in Normal Saline 100 ML IVPB ×3 (00:40→15:56)
[2020-04-21] MEDS: Acetaminophen 500 MG TAB 1000 MG PO ×2 (00:40→17:39)
[2020-04-21] MEDS: Ketorolac 30 MG/ML VIAL IVP (00:48)
[2020-04-21] MEDS: Normal Saline Flush 10 ML SYR IVP ×3 (00:49→17:01)
[2020-04-21] MEDS: Normal Saline 1,000 ML 125 ML IV ×2 (00:49→10:09)
[2020-04-21 04:22] VITALS: BP 126/77; PULSE 60; RESP 16; TEMP 36.3; O2SAT 98
[2020-04-21 07:40] VITALS: BP 134/89; PULSE 63; RESP 16; TEMP 36.1; O2SAT 98
[2020-04-21] MEDS: Losartan 25 MG TAB PO (07:57)
--- NOTE | 2020-04-21 12:06 | W.PM.PROGNOT ---
Date of Service Date of service: 04/21/20 Time of Service: 12:06 Assessment and Plan Assessment and plan (1) Acute diverticulitis: Status: Acute Assessment and plan: pt feeling better. less pain and appetite returned. try some yogurt and soft foods cont IV abx until pain free supportive care pt would liek to see GI. will send referral to [facility] on wednesday No peritonitis and no need for acute surgical intervention. Prosthesis shows no signs of infection. (2) Tobacco abuse: Status: Acute (3) History of total knee arthroplasty: Status: Acute Qualifiers: Laterality: left Qualified Code(s): Z96.652 - Presence of left artificial knee joint Subjective Subjective Interval history since last seen: Pt is feeling better today. Less pain. no BM yet. No bleeding no headaches. No CP or SOB. no productive cough. no dysuria. no leg pain or swelling. Pt would like more to eat Exam HENMT Other: all neg no thrush Resp Auscultation: clear to auscultation bilaterally GI Palpation: soft Other: minimal LLQ pain today + BS. no stools yet. passing gas Extrem General: no clubbing, cyanosis or edema Objective Objective Clinical Data: Vital Signs Temperature 36.1 C L 04/21/20 07:40 Temperature Source Tympanic 04/21/20 07:40 Pulse 63 04/21/20 07:40 Pulse Rhythm Regular 04/21/20 08:05 Respiratory Rate 16 04/21/20 07:40 Respiratory Effort Non-Labored 04/21/20 08:05 Respiratory Depth Normal 04/21/20 08:05 Respiratory Pattern Normal 04/21/20 08:05 Blood Pressure 134/89 04/21/20 07:40 Blood Pressure Position Sitting 04/19/20 18:15 Pulse Oximetry 98 04/21/20 07:40 Oxygen Delivery Method Room Air 04/21/20 07:40 Oxygen Flow Rate 0 04/21/20 07:40 Pain Level 2 04/21/20 11:13 Intake & Output 04/20/20 04/21/20 04/21/20 23:59 11:59 23:59 Intake Total 1100 / 2738.750 2193.75 / 2193.75 Output Total 1500 / 3850 1500 / 1500 Balance -400 / -1111.250 693.75 / 693.75 Intake: IV 1100 / 2718.750 Oral 200 / 200 Output: Urine 1500 / 3850 1500 / 1500 Other: Urine Color Pale Yellow Yellow Urine Appearance Clear Clear Urine Odor None Normal Comment independantly Voiding Methods Toilet Toilet Laboratory Results WBC 7.46 k/cumm (4.4-10.8) D 04/20/20 06:50 RBC 4.22 m/cumm (4.00-5.20) 04/20/20 06:50 Hgb 12.7 g/dL (12.0-15.5) 04/20/20 06:50 Hct 38.0 % (36.0-46.0) 04/20/20 06:50 MCV 90.0 fL (80-95) 04/20/20 06:50 MCH 30.1 pg (27.0-33.0) 04/20/20 06:50 MCHC 33.4 g/dL (32.0-36.0) 04/20/20 06:50 RDW 13.1 % (11.7-14.6) 04/20/20 06:50 Plt Count 238 x1000/uL (130-400) 04/20/20 06:50 MPV 10.6 fL (8.0-11.0) 04/20/20 06:50 Immature Gran % 0.3 % 04/20/20 06:50 Neutrophils % 72.9 04/20/20 06:50 Lymphocytes % 17.2 04/20/20 06:50 Monocytes % 8.2 04/20/20 06:50 Eosinophils % 1.3 04/20/20 06:50 Basophils % 0.1 04/20/20 06:50 Absolute Neutrophils 5.44 k/cumm (1.2-6.7) 04/20/20 06:50 Absolute Lymphocytes 1.28 k/cumm (1.2-3.4) 04/20/20 06:50 Absolute Monocytes 0.61 k/cumm (0.11-0.7) 04/20/20 06:50 Absolute Eosinophils 0.10 k/cumm (0.0-0.7) 04/20/20 06:50 Absolute Basophils 0.01 k/cumm (0.0-0.2) 04/20/20 06:50 Sodium 137 mmol/L (136-145) 04/19/20 19:13 Potassium 3.9 mmol/L (3.5-5.1) 04/19/20 19:13 Chloride 101 mmol/L (98-107) 04/19/20 19:13 Carbon Dioxide 23.2 mmol/L (21.0-32.0) 04/19/20 19:13 Anion Gap 12.8 mmol/L (3-11) H 04/19/20 19:13 BUN 15 mg/dL (7-18) 04/19/20 19:13 Creatinine 0.85 mg/dL (0.55-1.02) 04/19/20 19:13 Estimated GFR/1.73 m2 >= 60.00 (mL/min/1.73m2) 04/19/20 19:13 Glucose 95 mg/dL (74-106) 04/19/20 19:13 Calcium 8.9 mg/dL (8.5-10.1) 04/19/20 19:13 Total Bilirubin 0.4 mg/dL (0.2-1.0) 04/19/20 19:13 AST 22 U/L (15-37) 04/19/20 19:13 ALT 39 U/L (14-59) 04/19/20 19:13 Alkaline Phosphatase 151 U/L (46-116) H 04/19/20 19:13 Total Protein 7.8 g/dL (6.4-8.2) 04/19/20 19:13 Albumin 4.1 g/dL (3.4-5.0) 04/19/20 19:13 Lipase 41 U/L (73-393) 04/19/20 19:13 Urine Color Yellow (Yellow) 04/19/20 19:12 Urine Clarity Clear (Clear) 04/19/20 19:12 Urine pH 6.0 (5-8) 04/19/20 19:12 Ur Specific [place] <= 1.005 (1.005-1.025) 04/19/20 19:12 Urine Protein Negative mg/dL (Negative) 04/19/20 19:12 Urine Ketones Negative mg/dL (Negative) 04/19/20 19:12 Urine Blood Negative (Negative) 04/19/20 19:12 Urine Nitrite Negative (Negative) 04/19/20 19:12 Urine Bilirubin Negative (Negative) 04/19/20 19:12 Urine Urobilinogen 0.2 EU/dL (Up TO 0.2) 04/19/20 19:12 Ur Leukocyte Esterase Negative (Negative) 04/19/20 19:12 Urine Glucose Negative mg/dL (Negative) 04/19/20 19:12 COVID-19 PCR Negative (Negative) 04/19/20 21:30 Nasopharyn COVID-19 PCR Not Applicable 04/19/20 21:30 Ref Test Perform Site [facility] 04/19/20 21:30
[2020-04-21 15:05] VITALS: BP 136/75; PULSE 56; RESP 18; TEMP 36.5; O2SAT 93
--- NOTE | 2020-04-21 17:04 | PDOC.CMPRO ---
- If Service Date Differs Date of service: 04/21/20 Time of Service: 17:04 Care Management Progress Note S/O: Debora was seen ambulating in the halls many times dueing the day. She was pleasant and smiling and chatted wqith many of the employees she encountered. She stated that she is feeling much better today. Her diet has been advanced and she seems to be tolerating it well. A: Debora is a 59 year old woman admitted on 04/19/20 with diverticulitis P:Debora will likely be discharged home with no services. She will follow up with her surgeon and discharge plan of care. CM will continue to support Debora and assess for discharge needs.
[2020-04-21 19:20] VITALS: BP 138/90; PULSE 53; RESP 18; TEMP 35.9; O2SAT 100
[2020-04-21] MEDS: Enoxaparin 40 MG/0.4 ML SYR SC (22:03)
[2020-04-21 22:25] VITALS: BP 151/73; PULSE 60; RESP 18; TEMP 36.1; O2SAT 95
[2020-04-22] MEDS: Normal Saline Flush 10 ML SYR IVP ×2 (00:01→08:15)
[2020-04-22] MEDS: MEROPENEM 1 GM in Normal Saline 100 ML IVPB ×2 (00:01→08:15)
[2020-04-22] MEDS: Acetaminophen 500 MG TAB 1000 MG PO ×2 (06:16)
[2020-04-22 07:04] VITALS: BP 114/80; PULSE 65; RESP 19; TEMP 36.9; O2SAT 98
[2020-04-22] MEDS: Losartan 25 MG TAB PO (08:14)
--- NOTE | 2020-04-22 11:11 | DSE_ITS ---
Date of service: 04/22/20 Time of Service: 11:11 DS: Diagnosis Discharge Diagnosis (1) Acute diverticulitis: Status: Acute (2) Tobacco abuse: Status: Acute (3) History of total knee arthroplasty: Status: Acute Discharge Plan Disposition Patient Disposition: HOME Condition: Fair Discharge Details Chief Complaint: Abd Prob Clinical Impression: Acute diverticulitis Reason For Visit: RECURRENT DIVERTICULITIS Admit Date/Time: 04/19/20 20:51 Admit Provider: Mariana Castro Attending Provider: Mariana Castro Primary Care Provider: Rik Abebe ED Provider: Adriana Joseph Home Meds and New Rx's Prescriptions: New moxifloxacin 400 mg tablet 400 mg PO DAILY 14 Days Qty: 14 RF: 0 Continued (DME) [Left] knee medial nurses director brace Qty: 1 RF: 0 losartan 25 mg tablet 25 mg PO DAILY Qty: 90 RF: 3 rosuvastatin 5 mg tablet 5 mg PO DAILY Qty: 90 RF: 3 acetaminophen 500 mg tablet 1,000 mg PO PRN PRN (Reason: pain) RF: 0 acetaminophen [Tylenol] 325 mg Tablet 650 mg PO Q4H PRN PRNQty: 0 RF: 0 Discharge Instructions Additional Instructions: Keep an ice bag on the incision. 20 minutes on and 20 minutes off. Ice keeps the swelling down and swelling causes pain. Make sure you wrap the ice pack in a towel and don't apply directly to the skin. -Follow-up with Dr. Castro in 1 week. -soft diet: No beef/pork raw vegetables x1 -week. Cooked vegetables are fine. avoid breads/crackers/chips. Soft diet for 1 weeks. Yogurt daily for 30 days -no straining to move bowels -It is ok to shower. No bathe, soaking, swimming or hot tubs -Keep wound clean and dry. Wash incision with soap and water daily. Pat dry, don't rub. You may find that your appetite is smaller. Eat 3-6 small meals throughout the day. It is important to drink lots of water after surgery, 6-10 glasses a day. -If you were given an incentive spirometry (breathing voice teacher?), continue to do this 10x/hour while awake. -We do want you up walking, at least 5-6 times per day. This is very important to prevent pneumonia and blood clots. You can climb stairs, take them slowly. -No lifting over 5 pounds. This is very important to avoid developing a hernia in your incision. -You may find that you are very tired after surgery- this is normal. -please do not smoke for a minimum of 72 hours after surgery. Gastrointestinal Soft Diet Overview Overview What is a gastrointestinal soft diet? This diet is soft in texture, low in fiber, and easy to digest. The goal is to decrease) in the bowel that may cause and discomfort. This diet is often used after abdominal surgery or as a transitional diet after flares. Meats & Meat Substitutes ? Foods Allowed: Chicken, turkey, fish, tender cuts of beef and pork, ground meats, eggs, creamy nut butters, tofu, skinless hot dogs, sausage patties without whole spices ? Foods to Avoid : Tough, fibrous meats with gristle, meat with casings (hot dogs, sausage, kielbasa), lunch meats with whole spices, shellfish, beans, chunky peanut butter, nuts Fruits and Juices ? Foods Allowed: Fruit juices without pulp, banana, avocado, applesauce, canned peaches and pears, cooked fruit without the skin/seeds ? Foods to Avoid: Juices with pulp, fresh fruit (except banana and avocado), dried fruits, canned fruit cocktail and pineapple, coconut, frozen/thawed berries Vegetables ? Foods Allowed: Well-cooked or canned vegetables, potatoes without skin, tomato sauces, vegetable juice ? Foods to Avoid: Raw vegetables, all corn, all mushrooms, stewed tomatoes, potato skins, stir-ann vegetables, sauerkraut, pickles, olives, all dried beans, peas, and legumes Cereals and Grains ? Foods Allowed: Low- fiber dry or cooked cereals (less than 2 grams fiber per serving), white rice, pasta, macaroni, or noodles ? Foods to Avoid: Cereals with nuts, berries, dried fruits, whole grain cereals, bran cereals, granola, brown or wild rice, whole grain pasta Breads and Crackers ? Foods Allowed: White/refined breads and rolls, plain bagel, toast, plain crackers, chata crackers ? Foods to Avoid: Whole grain breads- including white whole grain; bread/ rolls with raisins, nuts or seeds, multi-grain crackers Dairy ? Foods Allowed: Milk, cheese, yogurt, milkshakes, pudding, ice cream, cottage cheese, sherbet ; lactose free or low lactose versions if lactose intolerant ? Foods to Avoid: Dairy product mixed with fresh fruit (except banana), berries, nuts or seeds Desserts ? Foods Allowed: Plain cake, pudding, custard, ice cream, sherbet, gelatin, fruit whips ? Foods to Avoid: Any dessert that contains nuts, dried fruits, coconut, or fruits with seeds Herbs and Spices ? Foods Allowed: All ground spices or herbs, salt ? Foods to Avoid: Whole spices such as peppercorns, whole cloves, anise seeds, celery seeds, blaine, denisse seeds, and fresh herbs Snacks/Other Foods ? Foods Allowed: Sugar, honey, jelly, mayonnaise, mustard, soy sauce, oil, butter, margarine, marshmallows, cookies without dried fruits or nuts, snack chips and pretzels using refined flours ? Foods to Avoid: Carbonated beverages, jams or jellies with seeds, popcorn After several weeks, slowly start to reintroduce the ?Foods to Avoid? back into your diet unless your doctor has told you otherwise. Try a small portion of one of these foods each day. If it does not bother you within 24 hours, it can be added to your diet. Continue to add new foods in this way. Some people may continue to have food sensitivities and may need to continue to avoid certain foods. If you cannot tolerate a food, avoid that food for a few weeks before you try it again. Guidelines when eating 1. Avoid any food that you cannot tolerate or that causes gas, bloating, or stomach pain. 2. Make time for your meals. Do not eat while you are in a hurry. Cut your food into small pieces. Chew each bite to a mashed potato consistency. Do not eat when you cannot concentrate on chewing well. 3. Drink at least 6-8 cups of fluid per day Fluids include: water, coffee, tea, juice, milk, popsicles, soups, gelatin, pudding, ice cream, sherbet, and yogurt. In addition, choose caffeine-free beverages more often, especially if you are having diarrhea. 4. A daily multivitamin may be recommended if diet is limited in amounts or variety of foods. Do not take any herbal supplements without first checking with your doctor. DIVERTICULAR DISEASE OVERVIEW ? A diverticulum is a pouch-like structure that can form through points of weakness in the muscular wall of the colon (ie, at points where blood vessels pass through the wall). Diverticulosis affects men and women equally. The risk of diverticular disease increases with age. It occurs throughout the world but is seen more commonly in developed countries. WHAT IS DIVERTICULAR DISEASE? Diverticulosis ? Diverticulosis merely describes the presence of diverticula. Diverticulosis is often found during a test done for other reasons, such as flexible sigmoidoscopy, colonoscopy, or barium enema. Most people with diverticulosis have no symptoms and will remain symptom free for the rest of their lives. A person with diverticulosis may have diverticulitis, or diverticular bleeding. Diverticulitis ? Inflammation of a diverticulum (diverticulitis) occurs when there is thinning and breakdown of the diverticular wall. This may be caused by increased pressure within the colon or by hardened particles of stool, which can become lodged within the diverticulum. The symptoms of diverticulitis depend upon the degree of inflammation present. The most common symptom is pain in the left lower abdomen. Other symptoms can include nausea and vomiting, constipation, diarrhea, and urinary symptoms such as pain or burning when urinating or the frequent need to urinate. Diverticulitis is divided into simple and complicated forms. ?Simple diverticulitis, which accounts for 75 percent of cases, is not associated with complications and typically responds to medical treatment wi thout surgery. ?Complicated diverticulitis occurs in 25 percent of cases and usually requires surgery. Complications associated with diverticulitis can include the following: ?Abscess ? a localized collection of pus ?Fistula ? an abnormal tract between two areas that are not normally connected (eg, bowel and bladder) ?Obstruction ? a blockage of the colon ?Peritonitis ? infection involving the space around the abdominal organ ?Sepsis ? overwhelming body-wide infection that can lead to failure of multiple organs Diverticular bleeding ? Diverticular bleeding occurs when a small artery located within a diverticulum is eroded and bleeds into the colon. Diverticular bleeding usually causes painless bleeding from the rectum. In approximately 50 percent of cases, the person will see maroon or bright red blood with bowel movements. Is bleeding with a bowel movement normal? ? It is not normal to see blood in a bowel movement; this can be a sign of several conditions, most of which are not serious (eg, hemorrhoids) but some of which are serious and require immediate treatment. Anyone who sees blood after a bowel movement should consult with their healthcare provider to determine if further testing or evaluation is needed. DIVERTICULOSIS AND DIVERTICULITIS DIAGNOSIS ? Diverticulosis is often found during tests performed for other reasons. ?Barium enema ? This is an x-ray study that uses barium in an enema to view the outline of the lower intestinal tract. This is an older test and has been largely replaced by computed tomography (CT) scan. ?Flexible sigmoidoscopy ? This is an examination of the inside of the sigmoid colon with a thin, flexible tube that contains a camera. ?Colonoscopy ? This is an examination of the inside of the entire colon. ?CT scan ? A CT scan is often used to diagnose diverticulitis and its complications. If diverticulitis (not just diverticulosis) is suspected, the above three tests should not be used because of the risk of perforation. TREATMENT Diverticulosis ? People with diverticulosis who do not have symptoms do not require treatment. However, most clinicians recommend increasing fiber in the diet, which can help to bulk the stools and possibly prevent the development of new diverticula, diverticulitis, or diverticular bleeding. Fiber is not proven to prevent these conditions in all patients but may help to control recurrent episodes in some. Increase fiber ? Fruits and vegetables are a good source of fiber. Fiber content of packaged foods can be calculated by reading the nutrition label. Seeds and nuts ? Patients with diverticular disease have historically been advised to avoid whole pieces of fiber (such as seeds, corn, and nuts) because of concern that these foods could cause an episode of diverticulitis. However, this belief is completely unproven. We do not suggest that patients with diverticulosis avoid seeds, corn, or nuts. Diverticulitis ? Treatment of diverticulitis depends upon how severe your symptoms are. Home treatment ? If you have mild symptoms of diverticulitis (mild abdominal pain, usually left lower abdomen), you can be treated at home with a clear liquid diet and oral antibiotics. However, if you develop one or more of the following signs or symptoms, you should seek immediate medical attention: ?Temperature >100.1?F (38?C) ?Worsening or severe abdominal pain ?An inability to tolerate fluids Hospital treatment ? If you have moderate to severe symptoms, you may be hospitalized for treatment. During this time, you are not allowed to eat or drink; antibiotics and fluids are given into a vein. If you develop an abscess of the colon, you may require drainage of the abscess (usually performed by placing a drainage tube across the abdominal wall) or by surgically opening the affected area. Surgery ? If you develop a generalized infection in the abdomen (peritonitis), you will usually require an emergency operation. A two-part operation may be necessary in some cases. ?The first operation involves removal of the diseased colon and creation of a colostomy. A colostomy is an opening between the colon and the skin, where a bag is attached to collect waste from the intestine. The lower end of the colon is temporarily sewed closed to allow it to heal. ?Approximately three to six months later, a second operation is performed to reconnect the two parts of the colon and close the opening in the skin. You are then able to empty your bowels through the rectum. Sometimes patients require up to a year to recover from the first operation, depending on how sick they were. In non-emergency situations, the diseased area of the colon can be removed and the two ends of the colon can be reconnected in one operation, without the need for a colostomy. Surgery versus medical therapy ? An operation to remove the diseased area of the colon may be necessary if you do not improve with medical therapy. After an episode of uncomplicated diverticulitis, elective surgery is generally not required as the risk of another attack or requiring emergency surgery is low. However, patients with persistent symptoms attributable to diverticulitis, a history of complicated diverticulitis, or a compromised immune system should be evaluated for possible surgery to prevent another attack. In such patients, another attack has been associated with a higher risk of complications or . Of course, the decision will also depend in part upon your other medical conditions and ability to undergo surgery. In many cases, an elective operation can be performed laparoscopically, using small incisions, rather than the typical vertical (up and down) abdominal incision. Laparoscopic surgery usually allows you to recover more quickly and shortens the hospital stay. After diverticulitis resolves ? After an episode of diverticulitis resolves, if you have not had a recent colonoscopy, the entire length of the colon should be evaluated to determine the extent of disease and to rule out the presence of abnormal lesions such as polyps or cancer. Recommended tests include colonoscopy, barium enema and sigmoidoscopy, or CT colonography. Diverticular bleeding ? Most cases of diverticular bleeding resolve on their own . However, some people will need further testing or treatment to stop bleeding, which may include a colonoscopy, angiography (a treatment that blocks off the bleeding artery), bleeding scan, or surgery. DIVERTICULAR DISEASE PROGNOSIS Diverticulosis ? Over time, diverticulosis may cause no problems or it may cause episodes of bleeding and/or diverticulitis. Approximately 15 to 25 percent of people with diverticulosis will develop diverticulitis, while 5 to 15 percent will develop diverticular bleeding. Diverticulitis ? Approximately 85 percent of people with uncomplicated diverticulitis will respond to medical treatment, while approximately 15 percent of patients will need an operation. After successful treatment for a first attack of diverticulitis, one-third of patients will remain asymptomatic, one- third will have episodic cramps without diverticulitis, and one-third will go on to have a second attack of diverticulitis. The prognosis tends to remain similar following a second attack of diverticulitis. Only 10 percent of people remain symptom-free after a second attack. Subsequent attacks tend to be of similar severity, not increasing in severity as previously believed. High Fiber Diet What is Dietary Fiber? All fiber comes from plants, bushes, nae or trees. Of course, the ones that we eat provide us with fruits, vegetables and grains. There are many different types of fiber but the three that are most important to the health of the body are: Insoluble Fiber This fiber does not dissolve in water, nor is it fermented by the bacteria residing in the colon. Rather, it retains water and in so doing, helps to promote a larger, bulkier and more regular bowel activity. This, in turn, may be important in preventing disorder such as diverticulosis and hemorrhoids, and in sweeping out certain toxins and cancer causing carcinogens. Sources of insoluble fiber are: ? whole grain wheat and other whole grains ? corn bran, including popcorn, unflavored and unsweetened ? nuts and seeds ? potatoes and the skins from most fruits from trees such as apples, bananas and avocados ? many green vegetables such as green beans, zucchini, celery and cauliflower ? some fruit plants such as tomatoes and kiwi Soluble Fiber These fibers are fermented or used by the colon bacteria as a food source or nourishment. When these good bacteria grow and thrive, many health benefits occ ur in both the colon and the body. Soluble fiber is present in some degree in most edible plant foods, but the ones with the most soluble fiber include: ? legumes such as peas and most beans, including soybeans ? oats, rye and barley ? many fruits such as berries, plums, apples bananas and pears ? certain vegetables such as broccoli and carrots ? most root vegetables ? psyllium husk supplement products Prebiotic Soluble Fiber These are relatively newly discovered soluble plant fibers. The technical name for this fiber is inulin or fructan. When these soluble fibers are fermented by the good colon bacteria, some further significant health benefits have been shown to occur by research in many medical centers. These soluble prebiotic fibers occur in significant amounts in: ? asparagus ? yams ? onions ? garlic ? bananas ? leeks ? agave ? chicory and other root vegetables such as [place] artichokes ? wheat, rye and barley (smaller amounts) Benefits of a High Fiber Diet The health benefits of a high fiber diet, consumed on a regular basis and reaching recommended amounts (below), are now fairly well-defined. There are some additional benefits in the early research stage with the prebiotic soluble fibers. What is now known regarding a high fiber diet include: Bowel Regularity A high fiber diet promotes regularity with a softer, bulkier and regular stool pattern. This decreases the chance of hemorrhoids, diverticulosis and perhaps colon cancer. Cholesterol and Reduced Triglycerides The soluble fibers are the ones that will reduce cholesterol levels when used on a regular basis. Psyllium husk and prebiotic soluble fiber will also reduce cholesterol. They may also reduce the incidence of coronary heart disease. Oats, flax seeds and legumes or beans are the recommended fibers. Colon Polyps and Cancer It is still not certain if a high fiber diet helps prevent colon cancer. Considerable research suggests that this may occur. Certainly it makes sense to increase regularity and so speed the movement of cancer causing carcinogens through the bowel. In addition, reducing a heavy meat diet reduces the bile flow from the liver in a favorable way. This, too, reduces the amount of carcinogens that reach and are manufactured in the colon. Finally, a high fiber diet, including prebiotic soluble fiber, increases the integrity and health of the wall of the colon. The risk of cancer may be reduced. Colon Wall Integrity A high fiber diet changes the bacterial makeup of the colon toward a more favorable balance. For instance, it is known that those people with obesity, diabetes type 2 and inflammatory bowel disease have a predominance of bad bacteria in the colon. This, in turn, may render the bowel wall weak and allow bacteria and, indeed, even toxins to seep through. A high fiber diet with a modest reduction in animal and meat products may return the bacterial makeup to a more positive balance. This, in particular, has been seen when the soluble fiber prebiotics are added to the diet. Blood Sugar Soluble fiber such as in legumes (beans), oats and in prebiotic fibers slows the absorption of blood sugar and so helps regulate the sugar in the blood. Insoluble fiber on a regular basis is associated with reduced risk of type 2 diabetes. Weight Loss High fiber diets are more filling and give a sense of fullness sooner than an animal and meat based diet does. In addition, the soluble prebiotic fibers have been shown to turn off the hunger hormones produced in the wall of the gut and to increase the hormones that give a sense of fullness. Those hormones are made in the wall of the gut. New medical research has shown that the bacterial makeup in the colon in overweight people is abnormal to the extent that they manufacture and absorb almost twice the number of calories through the colon wall as do normals. Prebiotic fibers (below) will help change this hormonal balancein a favorable way. Bacteria and the Function of the Colon The colon finishes the digestive process. Hopefully, the waste products move through in a nice regular manner. Insoluble fibers help this process by retaining water and so producing a bulkier, softer stool, which is easy to pass. The additional role of the colon is to provide a home for an enormous number of micro-organisms, mostly bacteria. Recent research has shown that there are over 1,000 species of bacteria with a total bacterial count ten times the number of cells in the body. These bacteria play a major role in keeping the colon wall itself healthy. In addition, these good bacteria produce a very strong immune system for the body. They significantly increase calcium absorption and bone density. They provide other documented benefits. It is the soluble fibers in the diet that are so effective in stimulating the growth of good colon bacteria. How Much is Enough? The amount of fiber in food is measured in grams. National nutritional authorities recommend the following amounts of dietary fiber daily. Under Age 50 Over Age 50 Men 38 grams 30 grams Women 25 grams 21 grams For a week or so, it is best to tally the amount of fiber you are consuming. Boxed and packaged foods will have the amount of fiber per serving on the nutrition label. Which Fibers and Which Foods are Best? As noted, healthy fiber is only found in plants. The three major categories are whole grains, fruits and vegetables. Whole Grains Wheat, oats, barley, wild or brown rice, amaranth, buckwheat, bulgur, corn, millet, quinoa, rye, sorghum, teff and triticals. By far, wheat, oats and wild or brown rice are most common. Always buy whole grain products. White bread, baked goods and rolls almost always are made from wheat flour. Wheat flour is white because most of the fiber, vitamins and other nutrients have been removed. Try not buy enriched grains. What this means is that simple white flour has had vitamins added to it by the card tape converter operator. The word, enriched, implies a good and healthy product. On the contrary, enriched means that most of the fiber has been removed and a few vitamins added. Fruits Fruits come from trees such as apple and pear or from bushes or nae. You shoul d eat a wide variety of fruits, preferably with every meal. In many cases, the skin of a fruit such as apple will contain much of the insoluble fiber while the pulp contains most of the soluble fiber. To the extent possible, buy organic fruits as these will have little or no pesticides. Always wash fruit. Vegetables Eat a wide variety of vegetables. They should be a mainstay of lunch and dinners. Frozen vegetables retain as much nutrition and fiber as fresh vegetables. As with fruit, try to buy organic to reduce any residual pesticide ingestion. Wash fresh vegetables thoroughly. Cruciferous vegetables such as broccoli, [place] sprouts and cauliflower contain certain chemicals such as sulforaphane. This substance has very strong anti-cancer properties and should be eaten frequently. Legumes, Beans, Peas and Soybeans These vegetables have plenty of soluble fiber and should be part of a varied vegetable intake. Beans, in particular, contain a certain type of fiber that may lead to harmless gas or bloating. Nuts and Seeds These are rich sources of fiber and are a good substitute for sweets such as candies and baked sweet goods. While nuts and seeds are rich in fiber, they also contain vegetable fat and so can and do add calories. Read the Labels As noted, fresh and frozen foods are usually better. They have good nutrition and few, if any, chemicals added to them. When buying packaged foods and, in particular grains, look for three things: ? The first word on the label should be whole, such as whole wheat or whole grain. ? Check out the calories and the amount of fiber in a serving. ? How many and what other additives or chemicals are added. Fewer is always better. Do you know what each additive does? Some are added not for the benefit of the buyer agent but rather for manufacturers. These could and do include sugar, artificial flavor, chemicals to prevent oxidation and spoilage, emulsifiers to blend the product. You have to be a life sciences director. Fiber Facts, Nuggets and Pearls ? For breakfast you can easily get the day started well by using a high fiber, whole grain cereal. Check the labels. Add fruit such as blueberries and bananas. If you are an egg eater, use whole wheat or grain toast. Adding wheat germ gives you a good fiber kick. ? Always use whole grain or wheat with rolls and sandwiches. Does your fast food store not have them? Perhaps you look elsewhere. Eating an occasional black milian or veggie burger provides variety. ? Snacks should consist of fruit and/or nuts. While nuts are loaded with fiber, they are an energy rich food, meaning they have a lot of calories in a small packet. ? Fruit juices should contain pulp. Clear juices such as clear orange, pear or apple juice contain little fiber and have a lot of fructose. Prune juice is usually high in fiber. ? Homemade soups ? adding fresh or frozen vegetables to a chicken or vegetable stock is a good way to start homemade soup. ? Salads ? adding cooked and then chilled vegetables provide great flavoring to almost any salad. Remember, a lawson salad has lots of cooked corn in it. Small slices of apples or oranges and nuts such as chopped walnuts or sliced almonds always adds taste, variety and fiber to almost any salad. ? Fruit ? Try to eat fruit of some type with almost every meal. ? Rethink how you place the various foods on your dinner plate. Reducing the portions of the meat or animal food portion to the side with equal or more portions of vegetables, legumes and fruits portion always allows for more fiber. There was never anything magic about making the meat or animal food portion the main part of the dinner plate. Eating from smaller plates can, over time, trick your mind and long term care social worker habit of using a dinner plate. Again, there is nothing magic in an 11, 12, or 13 inch dinner plate. Fiber Supplements There are a variety of fiber supplements available on the food or pharmacy shelves. Psyllium This soluble plant fiber has been used in [place] for over 2,000 years. It is a soluble fiber with mucilage in it. This acts to retain a lot of water and also is fermented by colon bacteria. When 7 grams a day are used, it does lower cholesterol. Metamucil in various forms is psyllium. Methyl Cellulose All the cellulose products come from finely ground wood chips which are then treated in a variety of ways such as boiling in acids. Methyl cellulose is an insoluble fiber which does dissolve in water. It is also an emulsifier, meaning it blends oils and water. Citrucel is methyl cellulose (MC). MC may not be appropriate for Crohn?s disease or ulcerative colitis as several medical studies have shown that certain emulsifiers dissolve the mucous lining of the colon in animals prone to Crohn?s disease. This then allows bacteria to invade the underlying tissue. Inulin Inulin is a soluble prebiotic fiber found in many foods and which are fermented mostly in the left side of the colon. It is available in a supplement as generic inulin and in Fiber Choice. Oligofructose FOS These are also prebiotic fibers. They are fermented very quickly in the right side of the colon. Prebiotin This product is a combination of oligofructose, which feeds the bacteria in the right side of the colon and inulin, which does the same in the left side of the colon. There seems to be a benefit for this particular formula based on medical research. Prebiotic Soluble Fiber These may be the healthiest of all the soluble fibers. They grow in many plants and have had a great deal of research done on them in the last 10-15 years. These fibers are found in asparagus, yams and other root vegetables such as chicory, garlic, onion, leeks and in smaller amounts in wheat. This research has shown the following: ? Increase in good and decrease in bad colon bacteria ? Increase calcium absorption and enhanced bone mass ? Enhanced immune system ? Appetite and weight control by changing the hormone appetite signals to the brain ? May decrease colon cancer incidence ? Reduce or correct a leaky colon Eating a wide variety of plant food up to the recommended amount will likely give you enough prebiotic fiber. Supplements such as Prebiotin can be added to the diet. Short Chain Fatty Acids (SCFA) Some rather remarkable research findings have shown that one of the benefits of ingesting a lot of soluble fiber, in particular the prebiotic ones, results in larger amounts of SCFAs in the colon. These SCFAs are made by the good bacteria in the colon such as Bifidobacter and Lactobacillus. These small molecules have been shown to do the following: ? Enhance the health and integrity of the colon wall ? Provide nourishment for the cells that actually line the colon ? Increases the acidity of the colon which is a very real health benefit ? Stabilize blood sugar for diabetics ? Reduce blood cholesterol and triglyceride ? Significantly enhance immunity ? May be a benefit for Crohn?s disease and ulcerative colitis patients Fiber and Gas Everyone has intestinal gas and that is a good thing. It means that bacteria, hopefully the good ones, are thriving. The normal amount of flatus passed each day depends on sex and what is eaten. The normal number of flatus is 10-20 times a day. When the bacteria that make intestinal gases are growing, it also means that other good bacteria are using the same fibers to grow and produce multiple health benefits, including the production of healthy short-chain fatty acids. These substances are produced quietly in the colon and produce many health-related outcomes. Soluble fiber should always be used in a gradual manner. If too much is consumed at any one time, then excess, but harmless, intestinal gas can occur. People with irritable bowel syndrome are particularly prone to bloating and mild cramping. In this instance, soluble fiber in the diet or supplement should be used in small doses and increased gradually. Finally, prebiotic fibers tend to cause the production of short-chain fatty acids which acidify the colon. This, in turn, reduces or stops the growth of bacteria that make the smelly hydrogen sulfide gases that produce noxious flatus. People who consume many vegetables with prebiotics or take a prebiotic fiber supplement often have non-odoriferous flatus. Fiber and Irritable Bowel Syndrome Irritable bowel syndrome (IBS) is one of the most common disorders of the lower digestive tract. The symptoms of IBS can be quite varied. They can be a mix of several symptoms such as constipation, diarrhea, crampy abdominal discomfort, bloating and gas. An attack of IBS can be triggered by emotional tension and anxiety, poor dietary habits and certain medications. It is now known that infections in the intestine can lead to long-term IBS symptoms. Increased amounts of fiber in the diet can help relieve the symptoms of irritable bowel syndrome by producing soft, bulky stools. This helps to normalize the time it takes for the stool to pass through the colon. Recent medical research with newer techniques has shown some surprising and dramatic findings for IBS patients. Specifically, there is a very significant and abnormal shift of bacteria from those that provide health benefits to those bad bacteria that we really do not want in the gut. The technical name for this bad group of bacteria is called Firmicutes. Along with this abnormal bacterial collection, there is a smoldering low-grade inflammation in the gut wall that may contribute to symptoms. The goal for IBS patients should be to gradually increase the soluble dietary fibers in the diet so as to promote the growth of good bacteria and so suppress the bad ones along with the associated inflammation. IBS patients need to be careful of the amount of soluble fiber they consume. The reason for this is that, while the good colon bacteria thrive on these fibers and produce health benefits, other gas-forming bacteria may generate excessive but harmless gas and subsequent bloating. Thus, soluble plant fibers or a dietary prebiotic supplement should be taken in small initial doses and then gradually increased to tolerance. Fiber and Colon Polyps/Cancer Colon cancer is a major health problem. This disease is most common in Western cultures. It is not seen very often in rural cultures where the diet is mostly plant based. Usually, colon cancer starts out as a colon polyp, a benign mushroom-shaped growth. In time it grows, and in some people it becomes cancerous. Colon cancer is usually always curable if polyps are removed when found or if surgery is performed at an early stage. It is now known that people can inherit the risk of developing colon cancer, but diet is important, too. As noted, there is a very low rate of colon cancer in residents of countries where grains are unprocessed and retain their fiber. It seems that in the Western world, cancer-containing agents (carcinogens) remain in contact with the colon wall for a longer time and in higher concentrations. So, a large bulky stool may act to dilute these carcinogens by moving them through the bowel more quickly. Less carcinogenic exposure to the colon may mean fewer colon polyps and less cancer. A very current review of the entire world?s literature on the effect of fiber on colon polyps and cancer prevention has shown rather clearly that for every 10 grams of fiber added to the diet, there is a 10% reduction in incidence of colon cancer. So the recommended 30 gram fiber diet would result in a 30% less chance of getting these tumors. There are also substances produced in the colon by the good bacteria that seem to retard certain pre-cancer factors from developing. They are called short- chain fatty acids (SCFA). See above for description of SCFAs. A high fiber diet increases these substances. So, the combination of dietary fiber and the production of short-chain fatty acids have a clear health benefit. Fiber and Diverticulosis Prolonged, vigorous contraction of the colon over a long period of time may result in diverticulosis. This increased pressure causes small and, eventually, larger ballooning pockets to form. These pockets by themselves cause no problem. However, sometimes they become infected (diverticulitis) or even break open (perforate) causing infection or inflammation within the abdomen (peritonitis). A high fiber diet increases the bulk in the stool and thereby reduces the pressure within the colon. By so doing, the formation of pockets may be reduced or possibly even stopped. In the past, many physicians were fearful that seeds as in tomatoes, nuts or berries were harmful and could get inside these pockets and rattle around, causing damage. We now know that this has never been the case and that these foods contain lots of fiber and are actually beneficial for diverticulosis patients. Certain bulking agents such as psyllium are traditional types of bulk producing supplements. Psyllium is a soluble fiber. Combining it with insoluble fiber as in wheat bran or corn bran (no gluten) can enhance this bulking effect even more. A product containing a prebiotic, psyllium and wheat bran is probably a very good combination for bowel regularity. Prebiotin Regularity/Diverticulosis is one such product. Inflammatory Bowel Disease (IBD) IBD means Crohn?s Disease (CD) or Ulcerative Colitis (UC). CD is an inflammation of the lower small bowel and/or the colon. Bacteria actually invade and cause inflammation in the entire wall of the intestine. UC, on the other hand, is an inflammation just of the lining of the colon. It usually starts in the rectum and left colon and may spread to the entire colon from there. It is now known that in both CD and UC that the bacterial make up is abnormal. This means that there are significantly more of the bad bacteria present than the good ones. These abnormal bacteria are called Firmicutes. Fiber and Crohn?s Disease There is now some information in the medical literature on what type of diet may be harmful and what may help Crohn?s Disease. A reduction in red meat is likely helpful. So is reducing the fat in the diet, including vegetable oils. More importantly, people who had low fiber ingestion in the diet had a greater chance of getting CD. So, a gradual increase in the amount of fiber is likely helpful in hopefully preventing CD. This should always be done in conjunction with the physician. It should be done gradually and should include soluble fibers which fertilize the best colon bacteria. The good bacteria grow and push out the bad ones. These good bacteria provide short chain fatty acids, which can help heal the bowel wall. Prebiotics such as Prebiotin are available. Fiber and Ulcerative Colitis We still do not have strong evidence in the medical literature on what is the best diet for UC. Eating plenty of soluble fiber, including prebiotic fibers will nourish the best colon bacteria. It is hoped that this will result in a decrease in the bad or Firmicutes bacteria. It is well-known that when the good bacteria proliferate that they produce lots of acid substances called short chain fatty acids (SCFA). The SCFAs actually nourish the cells of the colon wall, the very ones that become inflamed in UC. In addition, when the colon contents become acid, the smelly sulfide gases are not produced and the flatus becomes less noxious and may even have no smell at all. This may have a beneficial effect on the inflammation. Prebiotics such as Prebiotin are the best type of soluble fiber. Referrals: Radha Fraga NP [NURSE PRACTITIONER] - 04/24/20 10:00 am Mariana Castro DO [OSTEOPATHIC DOCTOR] - 04/26/20 11:00 am Activity:: No lifting over 10 pounds x 5 days. No strenuous activity. Safe to continue physical therapy for her knee. Equipment/Supplies:: No Equipment Needed Diet:: see above Discharge Orders Discharge Orders: Discharge Order (Routine); Ordered 04/22/20 Ordered By: Mariana Castro DS: Summary Status at Discharge Functional status at discharge: independent ambulation Overall status at discharge: patient is back to baseline Mental Status: mental status grossly normal Speech and Movement: speech and movement normal Mood: congruent mood Affect: normal affect Exam Psych Mental Status: mental status grossly normal Speech and Movement: speech and movement normal Mood: congruent mood Affect: normal affect DS: Data Vitals/I&O Vitals and I&O: Vital Signs Temperature 36.9 C 04/22/20 07:04 Temperature Source Tympanic 04/22/20 07:04 Pulse 65 04/22/20 07:04 Pulse Rhythm Regular 04/22/20 08:50 Respiratory Rate 19 04/22/20 07:04 Respiratory Effort Non-Labored 04/22/20 08:50 Respiratory Depth Normal 04/22/20 08:50 Respiratory Pattern Normal 04/22/20 08:50 Blood Pressure 114/80 04/22/20 07:04 Blood Pressure Position Sitting 04/19/20 18:15 Pulse Oximetry 98 04/22/20 07:04 Oxygen Delivery Method Room Air 04/21/20 22:25 Oxygen Flow Rate 0 04/21/20 22:25 Pain Level 0 04/22/20 07:04 Intake & Output 04/21/20 04/21/20 04/22/20 11:59 23:59 11:59 Intake Total 2193.75 / 4383.75 2190 / 4383.75 200 / 200 Output Total 1500 / 4150 2650 / 4150 Balance 693.75 / 233.75 -460 / 233.75 200 / 200 Intake: IV 1992.75 / 3093.75 1099 / 3093.75 200 / 200 Oral 200 / 1290 1090 / 1290 Output: Urine 1500 / 4150 2650 / 4150 Other: Urine Color Yellow Yellow Yellow Urine Appearance Clear Clear Clear Urine Odor Normal Normal Stool Size Moderate Small Stool Characteristics Soft Soft Formed Voiding Methods Toilet Toilet Toilet [facility] Medical History Basal cell carcinoma (12/16/15) left lower eyelid Diverticulitis Diverticulosis (Acute) Hyperlipidemia Hypertension (Chronic) Internal derangement of left knee (Inactive) Knee osteonecrosis, 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/13/20 Tobacco abuse (Acute 06/05/14) Surgical History Colonoscopy - [facility] (06/24/18) Dr Heath, results - diverticulitis, repeat 10 years History of total knee arthroplasty (Acute 02/13/20) S/P left knee arthroscopy (Acute) Status post excisional biopsy (Acute) Left eye (skin lesion) Family History Mother Diabetes Stroke Hypertension Father Lymphoma Brother Myocardial infarction Brother Brain tumor Social History Smoking/Tobacco Use Status: Current-Occasional Tobacco Type: cigarettes Tobacco: How many years used: 20 Alcohol Intake: current Alcohol Intake frequency: a few times a week Alcohol type: beer and wine Drug use: Never Substance use type: does not use Household members: none Housing: house Number of Children: 2 current occupation: [employer] Current gender identity: female What is your relationship status?: Panel score (0-1 are the most socially isolated patients): 0 What type of physical activity do you participate in: regular exercise and other Details: physically active daily Seatbelt use: always Drive intox or ride w/intox water tanker driver: No Working smoke detector in home: Yes Fire extinguisher in home: Yes Carbon monox detector in home: Yes Do you feel safe at home: Yes Do you feel safe in your relationship?: Yes History History 2 Para 2 Hx # Term Pregnancies Multiple births Hx # Pregnancies Ectopic pregnancies AB induced Hx Number of Living Children AB spontaneous
--- NOTE | 2020-04-22 11:25 | PGE_ITS ---
Date of Service Date of service: 04/22/20 Time of Service: 11:25 Assessment and Plan Assessment and plan (1) Diverticulitis large intestine w/o perforation or abscess w/o bleeding: Status: Acute Assessment and plan: no pain today. + BM- but is loose. no fever/chills. tolerating clear liquids. pt would like to go home plan home on abx- moxifloxin Rx. supportive care cont PT for knee. low fiber diet f/u in office on wednesday (2) Acute diverticulitis: Status: Acute (3) Tobacco abuse: Status: Acute Subjective Subjective Interval history since last seen: Pt is feeling much better today. SHe has minimal pain. + BM w/ no blood. No fever or chills. She is tolerating clear liquids. no headaches. No CP or SOB. no productive cough. no dysuria. no leg pain or swelling. Exam Resp Effort & Inspection: normal respiratory effort and able to speak in complete sentences Auscultation: clear to auscultation bilaterally Cardio Rate: regular rate Rhythm: regular rhythm GI Inspection: normal to inspection and distended (none) Palpation: soft and hernia (none) Auscultation: normal bowel sounds Other: no rebound or guarding Skin General skin exam: no rashes or lesions noted Objective Objective Clinical Data: Vital Signs Temperature 36.9 C 04/22/20 07:04 Temperature Source Tympanic 04/22/20 07:04 Pulse 65 04/22/20 07:04 Pulse Rhythm Regular 04/22/20 08:50 Respiratory Rate 19 04/22/20 07:04 Respiratory Effort Non-Labored 04/22/20 08:50 Respiratory Depth Normal 04/22/20 08:50 Respiratory Pattern Normal 04/22/20 08:50 Blood Pressure 114/80 04/22/20 07:04 Blood Pressure Position Sitting 04/19/20 18:15 Pulse Oximetry 98 04/22/20 07:04 Oxygen Delivery Method Room Air 04/21/20 22:25 Oxygen Flow Rate 0 04/21/20 22:25 Pain Level 0 04/22/20 07:04 Intake & Output 04/21/20 04/21/20 04/22/20 11:59 23:59 11:59 Intake Total 2193.75 / 4383.75 2190 / 4383.75 200 / 200 Output Total 1500 / 4150 2650 / 4150 Balance 693.75 / 233.75 -460 / 233.75 200 / 200 Intake: IV 1993.75 / 3093.75 1100 / 3093.75 200 / 200 Oral 200 / 1290 1090 / 1290 Output: Urine 1500 / 4150 2650 / 4150 Other: Urine Color Yellow Yellow Yellow Urine Appearance Clear Clear Clear Urine Odor Normal Normal Stool Size Moderate Small Stool Characteristics Soft Soft Formed Voiding Methods Toilet Toilet Toilet Laboratory Results WBC 7.46 k/cumm (4.4-10.8) D 04/20/20 06:50 RBC 4.22 m/cumm (4.00-5.20) 04/20/20 06:50 Hgb 12.7 g/dL (12.0-15.5) 04/20/20 06:50 Hct 38.0 % (36.0-46.0) 04/20/20 06:50 MCV 90.0 fL (80-95) 04/20/20 06:50 MCH 30.1 pg (27.0-33.0) 04/20/20 06:50 MCHC 33.4 g/dL (32.0-36.0) 04/20/20 06:50 RDW 13.1 % (11.7-14.6) 04/20/20 06:50 Plt Count 238 x1000/uL (130-400) 04/20/20 06:50 MPV 10.6 fL (8.0-11.0) 04/20/20 06:50 Immature Gran % 0.3 % 04/20/20 06:50 Neutrophils % 72.9 04/20/20 06:50 Lymphocytes % 17.2 04/20/20 06:50 Monocytes % 8.2 04/20/20 06:50 Eosinophils % 1.3 04/20/20 06:50 Basophils % 0.1 04/20/20 06:50 Absolute Neutrophils 5.44 k/cumm (1.2-6.7) 04/20/20 06:50 Absolute Lymphocytes 1.28 k/cumm (1.2-3.4) 04/20/20 06:50 Absolute Monocytes 0.61 k/cumm (0.11-0.7) 04/20/20 06:50 Absolute Eosinophils 0.10 k/cumm (0.0-0.7) 04/20/20 06:50 Absolute Basophils 0.01 k/cumm (0.0-0.2) 04/20/20 06:50 Sodium 137 mmol/L (136-145) 04/19/20 19:13 Potassium 3.9 mmol/L (3.5-5.1) 04/19/20 19:13 Chloride 101 mmol/L (98-107) 04/19/20 19:13 Carbon Dioxide 23.2 mmol/L (21.0-32.0) 04/19/20 19:13 Anion Gap 12.8 mmol/L (3-11) H 04/19/20 19:13 BUN 15 mg/dL (7-18) 04/19/20 19:13 Creatinine 0.85 mg/dL (0.55-1.02) 04/19/20 19:13 Estimated GFR/1.73 m2 >= 60.00 (mL/min/1.73m2) 04/19/20 19:13 Glucose 95 mg/dL (74-106) 04/19/20 19:13 Calcium 8.9 mg/dL (8.5-10.1) 04/19/20 19:13 Total Bilirubin 0.4 mg/dL (0.2-1.0) 04/19/20 19:13 AST 22 U/L (15-37) 04/19/20 19:13 ALT 39 U/L (14-59) 04/19/20 19:13 Alkaline Phosphatase 151 U/L (46-116) H 04/19/20 19:13 Total Protein 7.8 g/dL (6.4-8.2) 04/19/20 19:13 Albumin 4.1 g/dL (3.4-5.0) 04/19/20 19:13 Lipase 41 U/L (73-393) 04/19/20 19:13 Urine Color Yellow (Yellow) 04/19/20 19:12 Urine Clarity Clear (Clear) 04/19/20 19:12 Urine pH 6.0 (5-8) 04/19/20 19:12 Ur Specific [place] <= 1.005 (1.005-1.025) 04/19/20 19:12 Urine Protein Negative mg/dL (Negative) 04/19/20 19:12 Urine Ketones Negative mg/dL (Negative) 04/19/20 19:12 Urine Blood Negative (Negative) 04/19/20 19:12 Urine Nitrite Negative (Negative) 04/19/20 19:12 Urine Bilirubin Negative (Negative) 04/19/20 19:12 Urine Urobilinogen 0.2 EU/dL (Up TO 0.2) 04/19/20 19:12 Ur Leukocyte Esterase Negative (Negative) 04/19/20 19:12 Urine Glucose Negative mg/dL (Negative) 04/19/20 19:12 COVID-19 PCR Negative (Negative) 04/19/20 21:30 Nasopharyn COVID-19 PCR Not Applicable 04/19/20 21:30 Ref Test Perform Site [place] [facility] 04/19/20 21:30
--- NOTE | 2020-04-22 13:18 | PDOC.CMDIS ---
- If Service Date Differs Date of service: 04/22/20 Time of Service: 13:19 LACE Index Scoring Tool - Questions: Length of Stay (in days): 3 Acuity (Admit via E.D.?): Yes Comorbidities: Any Tumor E.D. Visits: 3 - Answers: Total Score: 11 Risk of Readmission: High Risk Care Management Discharge Reason for Hospitalization: Acute diverticulitis Discharge Plan: Debora will be discharged home with no services. She will follow up with her surgeon and discharge plan of care and transport via private vehicle with a friend. Patient/Family Education Needs: Discharge plan, limitations, follow up plan, Ask Me Three
== END 2020-04-22 13:00 | disposition home or self-care (01) | DRG 379 ==
LOC: ER 21:10 → MS 21:30
PROVIDERS: Admitting Provider Surgery; Emergency Provider Physician Assistant; PCP Family Medicine; Visit Provider Surgery
DX: K57.33 Diverticulitis of large intestine without perforation or abscess with bleeding (principal); I10 Essential (primary) hypertension; E78.5 Hyperlipidemia, unspecified; F17.210 Nicotine dependence, cigarettes, uncomplicated; Z96.652 Presence of left artificial knee joint; Z85.828 Personal history of other malignant neoplasm of skin
CPT/HCPCS: 36415; 80053; 83690; 96361; 96365; 96367; 99222; 99232; 99238; 99285; J1650; U0003; 74177; 81003; 85025; 99284; J0131; J0744; J1885; J3490

== ENCOUNTER 2020-05-10 02:16 | Outpatient (CLI) | payer OTHER, SELFPAY ==
[2020-05-10 08:29] LABS: Abs Immature Grans 0.02 10^3/uL (0.0-0.06); Absolute Basophil Count 0.07 10^3/uL (0.0-0.2); Absolute Eosinophil Count 0.24 10^3/uL (0.0-0.7); Absolute Lymphocyte Count 1.85 10^3/uL (1.2-3.4); Absolute Monocyte Count 0.55 10^3/uL (0.1-0.8); Absolute Neutrophil Count 5.31 10^3/uL (1.2-6.7); Basophils % 0.9; HCT 43.2 % (36.0-46.0); HGB 14.2 g/dL (11.2-15.7); Immature Grans % 0.2; MCH 29.8 pg (27.0-33.0); MCHC 32.9 % (32.0-36.0); MCV 90.6 fL (80-95); MPV 10.3 fL (8.0-11.0); Monocytes % 6.8; Neutrophils % 66.1; Nucleated RBC 0 %; Platelet Count 267 10^3/uL (130-400); RBC 4.77 10^6/uL (3.93-5.22); RDW 13.1 % (11.7-14.6); RDW-SD 43.7 fL; WBC 8.04 10^3/uL (4.4-10.8)
[2020-05-10 08:57] LABS: Calculated LDL 53 mg/dL (<100); Cholesterol 150 mg/dL (<200); HDL Cholesterol 40 mg/dL (40-60); Triglyceride 285 mg/dL (<150)
== END 2020-05-10 02:36 ==
PROVIDERS: PCP Family Medicine; Visit Provider Surgery
DX: E78.5 Hyperlipidemia, unspecified (principal); K57.32 Diverticulitis of large intestine without perforation or abscess without bleeding; Z72.0 Tobacco use; Z01.84 Encounter for antibody response examination
CPT/HCPCS: 36415; 80061; 86850; 86900; 86901; 85025

== ENCOUNTER 2020-05-11 07:27 | Outpatient (CLI) | payer OTHER, SELFPAY ==
[2020-05-12 17:55] LABS: COVID-19 RT-PCR Result NEGATIVE (Negative)
== END 2020-05-11 07:47 ==
PROVIDERS: PCP Family Medicine; Visit Provider Surgery
DX: Z11.59 Encounter for screening for other viral diseases (principal); Z01.818 Encounter for other preprocedural examination
CPT/HCPCS: U0003

== ENCOUNTER 2020-05-15 06:04 | Inpatient (IN) | payer OTHER, SELFPAY ==
[2020-05-15] VITALS (20 sets, daily range): BP systolic 92–129; BP diastolic 59–75; PULSE 55–83; RESP 12–20; TEMP 35.3–36.8; O2SAT 93–99
[2020-05-15] MEDS: Acetaminophen 500 MG TAB 1000 MG PO (06:47)
[2020-05-15] MEDS: Lactated Ringers 1,000 ML 80 ML IV (06:55)
[2020-05-15] MEDS: Lidocaine 2% Jelly 6 ML SYR (08:10)
--- NOTE | 2020-05-15 08:48 | W.PM.OP ---
Date of service: 05/15/20 Time of Service: 08:48 Operative Note Operative Note DATE OF PROCEDURE: 05/15/20 PRE-OP DIAGNOSIS: Diverticulitis POST-OP DIAGNOSIS: same PROCEDURE: Cystoscopy, insert bilateral ureteral stents SURGEON: James Park ANESTHESIA: RONNA ESTIMATED BLOOD LOSS: 0 PATHOLOGY: none sent Patient was transported to: no change Patient's condition: stable Implants: Bilateral lighted ureteral stents Indications: This is a 59-year-old woman who has a history of diverticulitis which has been recurrent. She is presenting for colon resection. I have been asked to place ureteral stents to help identify the ureters intraoperatively. Findings: Normal ureteral locations Procedure Description: The patient was brought to the operating room on 05/15/2020. After successful induction of general anesthesia, she was placed in the dorsal lithotomy position. Her genitalia was prepped and draped. 2% Xylocaine jelly was instilled into the urethra to act as a local anesthetic. A 22 Latvian rigid cystoscope was passed through the urethra into the bladder. The bladder was inspected with a 30 degree lens. Both ureteral orifice ease were identified. Each orifice was cannulated with a lighted ureteral stent. The stents were advanced until resistance was met. The scope was then removed leaving the stents in place. A 16 Latvian De Anda catheter was passed alongside the stents into the bladder. The catheter balloon was inflated with 10 cc of sterile water. The stents were then withdrawn until the red marker was identified at the urethral meatus. The stents were then anchored in place to the patient's thigh and hooked to the light source. The patient tolerated this procedure well. The remainder of her surgery is being done by the general surgery providers.
[2020-05-15] MEDS: FentaNYL/ROPIvacaine 2 mcg/ml and 0.1% 200 ML CADD Cassette EP (09:19)
[2020-05-15] MEDS: Bupivacaine 0.25% Pres-Free 30 ML VIAL (09:52)
--- NOTE | 2020-05-15 11:25 | BOWEL_PTH ---
PATIENT: Debora Montgomery LOC: [facility]#:[id number] AGE/SX: 59/F ROOM: RE05/15/[address]: Mariana Castro : 1960 BED: A DIS: 05/20/2020 SPEC #: [id number] RECD: 05/15/20 16:14 STATUS: SAVANAH REQ #: [id number] LIZABETH: 05/15/20 11:[address]: Mariana Castro DEPT: Surgical Specimen RECD BY: Shruti Eisenberg ENTERED: 05/15/20 16:15 SP TYPE: Bowel OTHR DR: Rik Abebe DO Tissues: 1 - BOWEL RESECTION(OTHER) Procedures: GROSS AND MICRO LEVEL 5 Comments: [id number]
--- NOTE | 2020-05-15 14:00 | W.PM.OP ---
Date of service: 05/15/20 Time of Service: 14:00 Operative Note Operative Note DATE OF PROCEDURE: 05/15/20 PRE-OP DIAGNOSIS: recurrent diverticulitis POST-OP DIAGNOSIS: same PROCEDURE: lap assisted lap sigmoid resecton cysto SURGEON: Mariana Castro ASSISTING SURGEON: Claudia Queen WINCHMAN/CRANE OPERATOR: Mouna Garcia ANESTHESIA: GETA and epidural ESTIMATED BLOOD LOSS: 100 PATHOLOGY: none sent Patient was transported to: PACU Patient's condition: stable Indications: recurrent diveriticlitis Procedure Description: Informed consent is obtained for the procedural (explained in simple layman's terms that the pt and/or family could understand) explaining risks vs benefits and alternatives to the procedure and consequences if we do not do the procedure. Risks include but are not limited to:bleeding,infections, pneumonia, blood clots/DVT/PE, anesthesia(aspiration, damage to teeth/airway/NM/CVA//prolonged mechanical ventilation/PTX/IV infections), damage to bowel, bladder,blood vessels, ureters, bile ducts. Damage to solid organs requiring removal. Leakage from anastomosis requiring colostomy/ Wound infections requirng further surgery. Scarring and disfigurement. Subsequent bowel obstructions from scar tissue. Possible open procedure if minimaly invsive procedure is being attempted. Procedure Description: Informed consent was obtained. The pt was brought to the operating room and placed in a sitting position. An epidural catherter was placed by boogie. the patient was placed in a supine position on the operating room table. Monitors were applied. SCDs were applied to his lower extremities. He was then placed under general anesthesia and intubated without difficulty. At this point the patient was placed in [facility] and Dr. Park placed bilateral stents and a melissa catheter. Please see his separate dictation. Once Dr. Park was done with his part of the surgery the drapes were removed. The patient's abdomen was clipped of hair and prepped with ChloraPrep. THe perineum/rectum were prepped with iodine solution. Next the patient was draped in a sterile surgical fashion. At this point a timeout was done. The patient's name, date of , allergies to medications, DVT prophylaxis, antibiotic prophylaxis, procedure type, and any concerns were reviewed. Fire risk was assessed. The patient was typed and screened prior to surgery and Blood band was on his wrist. Quarter percent Marcaine was used to create local field blocks. A stab incision was done w/ an #11 blade. Versess is inserted into the abdomen. The drop test was postivive, and insufflation was begun. When 15mm of pressure was noted on the moniter, the veress was removed and a 5mm port was placed in LUQ. Lidocaine was injected in the right lower quadrant and a small 5 mm incision was made with an 11 blade. The 12 mm port was then placed under direct visualization insuprapubic position. A second 5 mm port was placed under direct visualization in the right lower quadrant. 2 more 5 mm ports were placed under direct visualization 1 in the left upper quadrant and one lateral to the umbilicus. Next the patient was placed into steep Trendelenburg and rotated to the right. The colon was than inspected. The mid colon and upper sigmoid was adhered to the anterior side wall. the white ling of Toldt was opened up adn the colon dissected down. Using a laparoscopic Lawson and an a-traumatic grasper the colon was grasped. The mobilization is carried up to the splenic flexure adn down into the pelvis. The colon was then mobilized along the line of Toldt using the LigaSure. The ureter is intimately adhered up to the posterior colon. this is dissected off using blunt dissection. Disease appears to be confined to the sigmoid colon and the mid left colon. This area will be sacrificed- approx. 6 inches. It appears that we have adequate length on the colon. Once it was mobilized the sigmoid colon was transected using a laparoscopic linear stapler. At this point the insufflation was stopped and the 12 mm port was removed. A phanenstiehl incision was made in the suprpubic, in the standard fashio using a # 10 blade. Dissection through the subcutaneous tissue, and fascia was done with cautery. the fascia was opened the fascia along the linea alba. The sigmoid colon was then identified and pulled up through this incision. we were then able to mobilize enough of the descending colon to feel that I would have adequate length and no tension around the anastomosis. The colon proximal to the area of diverticulitis was transected with a linear stapler. The specimen was marked with a suture distal. The anastomosis is created using an EEA stapler. The Proximal bowel is sized using sizers- a 29mm stapler will be used. . The purse-string device is placed on the proximal limb and fired. The anvil was inserted adn sectured. Attention was than turned to the rectal stump. It is dilated up to 29mm. The EEA stapling device is than inserted into the rectum. The spike is brought through the mid portion of the staple line. The anvil is than attached the the stapler and fired, and removed. The doughnut from the prox marita oc colon is not incomplete. When he did a ?leak test?- it was postivie. At the 12 oclock postion- there was a tic that has been transected when the stapler was fired. This was closed in 2 layers of 4-0 vicryl and 4-0 silk, in an interrupted fashion. A repeat leak test was done and was neg. The colon scope was than used to visualize the ansatomosis. THere was no bleeding and the anastomosis is intact and no air leakage. The bowel was then placed back into the abdomen and the abdomen was irrigated and suctioned. An instrument, needle and sponge count was done at this time and it was correct. The fascia was then closed with a running #1 Vicryl suture. The subcutaneous tissue was reapproximated with interrupted 3-0 Vicryl. As we were completing skin closure, there was noted to be gross blood in the melissa. We did open up the incision and inspect the ureters and bladder. Methylene blue was instilled IV. The ureter was identified from its course from above the illiac to the bladder. The bladder was carefully inspected and no injury was identified. There were no signs of any methlene blue extravasation. Dr. Park did return- please see has Op Note. The bladder was instilled w/ fluid and there was no extravasation. A cysto was done as well. There was some mild bleeding from the ureterall orifice. There was free flow of urine noted. The bleeding was determined to be coming from some mid mechanical irritation from having placed the stents. All structres are returned to the anatomical position. Sponge and needle counts are correct. The abdomen was irrigated with 500 cc of saline all saline was removed. There is no signs of any bleeding from the Dissection sites or the port sites. 4 pieces of Interceed were placed as the dissection site and in the pelvis. The peritoneum was closed with 0 Vicryl in a running fashion. The fascia was closed with #1 PDS in a running fashion. The fat pad is then copiously irrigated deep tissues approximated 3-0 subcutaneous fashion. Skin under the incision and the port sites is closed with skin madeline. Sterile compression dressings are applied pain. 2 x 2's and Tegaderms were applied to all 4 small incisions. A Mepilex border dressing was placed over the larger lower abdominal incision. Patient tolerated procedure well without complication, except for the aforementioned blood in the urine. This was felt to be due to just some mechanical irritation from his stents. Patient was transferred to PACU in stable condition. The family was apprised of her condition. Necessary arrangements are made to transfer her to the [facility] surgical floor when she is sufficiently recovered from anesthesia.
[2020-05-15] MEDS: Lactated Ringers 1,000 ML 30 ML IV (15:00)
[2020-05-15] MEDS: Enoxaparin 40 MG/0.4 ML SYR SC (17:06)
[2020-05-15] MEDS: Pantoprazole 40 MG VIAL IVP (17:06)
[2020-05-15] MEDS: ACETAMINOPHEN 1,000 MG/100 ML BTL 400 MG IVPB (17:07)
[2020-05-15] MEDS: Normal Saline Flush 10 ML SYR IV (17:07)
[2020-05-15] MEDS: Normal Saline 1,000 ML 125 ML IV (17:19)
--- NOTE | 2020-05-15 19:03 | W.PM.PROGNOT ---
Date of Service Date of service: 05/15/20 Time of Service: 19:03 Assessment and Plan Assessment and plan (1) Diverticulitis large intestine w/o perforation or abscess w/o bleeding: Status: Acute (2) Tobacco abuse: Status: Acute (3) Diverticulitis of large intestine without perforation or abscess with bleeding: Status: Resolved Subjective Subjective Interval history since last seen: The pt is seen after their recent lap sigmoid resection. The case is reviewed with the patient; findings and the procedure/surgery were reviewed with the patient and family. The Patient's condition has been reviewed with the RN. Vitals have all been stable. Pain is controlled-epidural per anesthesia. The pt is tolerating po's. The patient has been producing blue-tinged urine in an adequate amount. Antibiotics:completed. x1 dose DVT prophylaxis:lovenox in am GI prophylaxis: protonix/clears Constipation prophylaxis: ERAS protocol pulm toilet PHYSICAL EXAM GENERAL APPEARANCE: Alert, healthy appearance, oriented, in no acute distress SKIN: No rashes. HYDRATION: Well hydrated HEAD, EYES, EARS, NECK, AND THROAT: Head is normocephalic, pupils equal, round, reactive to light and accommodation, ocular movement intact, sclera clear and no jaundice or redness. Dentition intact. No eye pain. No thrush NECK: mild sore throat. LUNGS: normal respiration, clear to auscultation Normal chest wall movement. No chest wall pain. HEART: Regular rate and rhythm. NSR and no ST or T waves changes. EXTREMITY: No edema or cyanosis ABDOMEN: dressings are clean dry and intact. appropriate pain at surgical site. + bowel sounds NEURO: pt has epidural in place. able to move toes The patient current medical condition and all orders reviewed with nursing. Patient is stable and doing well postOp and continue routine medical care. See orders. Objective Objective Clinical Data: Vital Signs Temperature 35.6 C L 05/15/20 18:41 Temperature Source Tympanic 05/15/20 17:30 Pulse 62 05/15/20 18:41 Pulse Rhythm Regular 05/15/20 15:36 Respiratory Rate 16 05/15/20 18:41 Respiratory Effort Non-Labored 05/15/20 15:36 Respiratory Depth Normal 05/15/20 15:36 Respiratory Pattern Normal 05/15/20 15:36 Blood Pressure 104/68 05/15/20 18:41 Pulse Oximetry 98 05/15/20 18:41 Respiratory End-tidal CO2 28 05/15/20 13:55 Oxygen Delivery Method Room Air 05/15/20 18:41 Oxygen Flow Rate 0 05/15/20 18:41 Pain Level 0 05/15/20 17:30 Intake & Output 05/14/20 05/15/20 05/15/20 23:59 11:59 23:59 Intake Total 100 / 940 840 / 940 Output Total 300 / 300 Balance 100 / 640 540 / 640 Weight 72.7 kg Intake: IV 100 / 900 800 / 900 Oral 40 / 40 Output: Urine 200 / 200 Estimated Blood Loss 100 / 100 Other: Urine Color Yellow Pale Urine Appearance Clear Clear Emesis Description None
[2020-05-16] VITALS (27 sets, daily range): BP systolic 91–122; BP diastolic 63–73; PULSE 48–61; RESP 16–20; TEMP 35.4–36.9; O2SAT 96–100
[2020-05-16] MEDS: ACETAMINOPHEN 1,000 MG/100 ML BTL 400 MG IVPB ×5 (00:03→23:47)
[2020-05-16] MEDS: Normal Saline 1,000 ML 125 ML IV ×3 (00:15→19:06)
[2020-05-16] MEDS: FentaNYL/ROPIvacaine 2 mcg/ml and 0.1% 200 ML CADD Cassette EP (00:39)
[2020-05-16 07:48] LABS: Abs Immature Grans 0.05 10^3/uL (0.0-0.06); Absolute Basophil Count 0.02 10^3/uL (0.0-0.2); Absolute Lymphocyte Count 0.75 10^3/uL (1.2-3.4); Absolute Monocyte Count 0.73 10^3/uL (0.1-0.8); Absolute Neutrophil Count 8.95 10^3/uL (1.2-6.7); Basophils % 0.2; HCT 38.8 % (36.0-46.0); HGB 12.7 g/dL (11.2-15.7); Immature Grans % 0.5; Lymphocytes % 7.1; MCH 30.1 pg (27.0-33.0); MCHC 32.7 % (32.0-36.0); MCV 91.9 fL (80-95); MPV 10.5 fL (8.0-11.0); Neutrophils % 85.2; Nucleated RBC 0 %; Platelet Count 229 10^3/uL (130-400); RBC 4.22 10^6/uL (3.93-5.22); RDW 13.3 % (11.7-14.6); RDW-SD 44.6 fL
[2020-05-16 08:04] LABS: ALT 44 U/L (14-59); AST 25 U/L (15-37); Albumin 3.1 g/dL (3.4-5.0); Alkaline Phosphatase 106 U/L (46-116); Anion Gap 8.9 mmol/L (3-11); BUN 6 mg/dL (7-18); Bilirubin, Total 0.4 mg/dL (0.2-1.0); C-Reactive Protein 7.03 mg/dL (0.0-0.3); CO2 23.1 mmol/L (21.0-32.0); CREATININE 0.85 mg/dL (0.55-1.02); Calcium 8.1 mg/dL (8.5-10.1); Chloride 107 mmol/L (98-107); Glucose 97 mg/dL (74-106); Magnesium 1.9 mg/dL (1.8-2.4); Potassium 4.6 mmol/L (3.5-5.1); Sodium 139 mmol/L (136-145)
--- NOTE | 2020-05-16 09:31 | W.PM.PROGNOT ---
Date of Service Date of service: 05/16/20 Time of Service: 09:31 Assessment and Plan Assessment and plan (1) Diverticulitis large intestine w/o perforation or abscess w/o bleeding: Status: Acute Assessment and plan: POD #1 lap assist sigmoid resection for recurrent/chronic diverticular dx She did have some bleeding post procedurally. Repeat cystoscopy was done and this was found to have just been some mucosal injury from stents and no ureter or bladder injury. Her urine is clear blue today and in copious amounts. Patient has no pain. She is doing her I-S. We discussed the importance of smoking cessation. Patient is a long-term smoker. We discussed the importance of walking. Patient's legs are somewhat numb from the epidural and this was adjusted. If she starts having pain now that the epidural is turned down, we can add in scheduled Toradol. We will advance her diet. Otherwise she is doing extremely well. (2) Tobacco abuse: Status: Acute (3) History of total knee arthroplasty: Status: Acute Qualifiers: Laterality: left Qualified Code(s): Z96.652 - Presence of left artificial knee joint Subjective Subjective Interval history since last seen: Pt is doing well. no headaches. No CP or SOB. no productive cough. no dysuria. no leg pain or swelling. no abdom pain. She is complaining of some numbness in her right leg. I think this is from epidural. She was able to get up and walk a little bit today. She did have a small bowel movement. Her urine is still slight blue-tinged from the methylene blue. She is putting out good quantity. She has been tolerating clear liquids and would like to transition to a more solid food Exam HENMT Other: Mild sore/hoarse throat. No eye pain or drainage or redness. No thrush. No dental pain or malocclusion. Resp Effort & Inspection: normal respiratory effort and able to speak in complete sentences Auscultation: clear to auscultation bilaterally Cardio Rate: regular rate Rhythm: regular rhythm GI Inspection: incision (dressed. no bruising.) Palpation: soft Other: no pain. good BS Neuro General: patient alert Extrem General: normal to inspection and no clubbing, cyanosis or edema Other: Numbness from epidural. This is adjusted per anesthesia. Objective Objective Clinical Data: Abnormal lab results 05/16/20 05/16/20 Range/Units 07:30 07:30 Absolute Neutrophils 8.95 H (1.2-6.7) 10^3/uL Absolute Lymphocytes 0.75 L (1.2-3.4) 10^3/uL BUN 6 L (7-18) mg/dL Calcium 8.1 L (8.5-10.1) mg/dL C-Reactive Protein 7.03 H (0.0-0.3) mg/dL Total Protein 6.0 L (6.4-8.2) g/dL Albumin 3.1 L (3.4-5.0) g/dL Vital Signs Temperature 36.8 C 05/16/20 07:39 Temperature Source Tympanic 05/16/20 07:39 Pulse 58 L 05/16/20 07:39 Pulse Rhythm Regular 05/16/20 08:15 Respiratory Rate 16 05/16/20 08:25 Respiratory Effort 05/16/20 08:15 Respiratory Depth Normal 05/16/20 08:15 Respiratory Pattern Normal 05/16/20 08:15 Blood Pressure 106/67 05/16/20 07:39 Pulse Oximetry 100 05/16/20 07:39 Respiratory End-tidal CO2 28 05/15/20 13:55 Oxygen Delivery Method Room Air 05/16/20 07:39 Oxygen Flow Rate 0 05/16/20 07:39 Pain Level 0 05/16/20 07:39 Comment 05/16/20 02:15 Intake & Output 05/15/20 05/15/20 05/16/20 11:59 23:59 11:59 Intake Total 100 / 1040 940 / 1040 2969.917 / 2969.917 Output Total 1600 / 1600 650 / 650 Balance 100 / -560 -660 / -560 2319.917 / 2319.917 Weight 72.7 kg Intake: IV 100 / 1000 900 / 1000 2759.917 / 2759.917 Oral 40 / 40 210 / 210 Output: Urine 1500 / 1500 650 / 650 Estimated Blood Loss 100 / 100 Other: Urine Color Yellow Green Green Urine Appearance Clear Clear Clear Emesis Description None Laboratory Results WBC 10.50 10^3/uL (4.4-10.8) 05/16/20 07:30 RBC 4.22 10^6/uL (3.93-5.22) 05/16/20 07:30 Hgb 12.7 g/dL (11.2-15.7) 05/16/20 07:30 Hct 38.8 % (36.0-46.0) 05/16/20 07:30 MCV 91.9 fL (80-95) 05/16/20 07:30 MCH 30.1 pg (27.0-33.0) 05/16/20 07:30 MCHC 32.7 % (32.0-36.0) 05/16/20 07:30 RDW 13.3 % (11.7-14.6) 05/16/20 07:30 Plt Count 229 10^3/uL (130-400) 05/16/20 07:30 MPV 10.5 fL (8.0-11.0) 05/16/20 07:30 Immature Gran % 0.5 05/16/20 07:30 Neutrophils % 85.2 05/16/20 07:30 Lymphocytes % 7.1 05/16/20 07:30 Monocytes % 7.0 05/16/20 07:30 Eosinophils % 0.0 05/16/20 07:30 Basophils % 0.2 05/16/20 07:30 Absolute Neutrophils 8.95 10^3/uL (1.2-6.7) H 05/16/20 07:30 Absolute Lymphocytes 0.75 10^3/uL (1.2-3.4) L 05/16/20 07:30 Absolute Monocytes 0.73 10^3/uL (0.1-0.8) 05/16/20 07:30 Absolute Eosinophils 0.00 10^3/uL (0.0-0.7) 05/16/20 07:30 Absolute Basophils 0.02 10^3/uL (0.0-0.2) 05/16/20 07:30 Sodium 139 mmol/L (136-145) 05/16/20 07:30 Potassium 4.6 mmol/L (3.5-5.1) 05/16/20 07:30 Chloride 107 mmol/L (98-107) 05/16/20 07:30 Carbon Dioxide 23.1 mmol/L (21.0-32.0) 05/16/20 07:30 Anion Gap 8.9 mmol/L (3-11) 05/16/20 07:30 BUN 6 mg/dL (7-18) L 05/16/20 07:30 Creatinine 0.85 mg/dL (0.55-1.02) 05/16/20 07:30 Estimated GFR/1.73 m2 >= 60.00 (mL/min/1.73m2) 05/16/20 07:30 Glucose 97 mg/dL (74-106) 05/16/20 07:30 Calcium 8.1 mg/dL (8.5-10.1) L 05/16/20 07:30 Magnesium 1.9 mg/dL (1.8-2.4) 05/16/20 07:30 Total Bilirubin 0.4 mg/dL (0.2-1.0) 05/16/20 07:30 AST 25 U/L (15-37) 05/16/20 07:30 ALT 44 U/L (14-59) 05/16/20 07:30 Alkaline Phosphatase 106 U/L (46-116) 05/16/20 07:30 C-Reactive Protein 7.03 mg/dL (0.0-0.3) H 05/16/20 07:30 Total Protein 6.0 g/dL (6.4-8.2) L 05/16/20 07:30 Albumin 3.1 g/dL (3.4-5.0) L 05/16/20 07:30
--- NOTE | 2020-05-16 10:00 | INITIAL_ITS ---
- If Service Date Differs Date of service: 05/16/20 Time of Service: 15:58 Care Management Initial Assess REASON FOR HOSPITALIZATION:: Laparoscopic sigmoid resection for recurrent diverticulitis PAST MEDICAL HISTORY/PAST SURGICAL HISTORY:: Medical History . Basal cell carcinoma (12/16/15). left lower eyelid. Diverticulitis. Diverticulosis (Acute). Hyperlipidemia. Hypertension (Chronic). Internal derangement of left knee (Inactive). Knee osteonecrosis, left (Resolved). s/p L TKA 02/13/20. Tobacco abuse (Acute 06/05/14). Surgical History . Colonoscopy - MAC (06/24/18). Dr Heath, results - diverticulitis, repeat 10 years. History of total knee arthroplasty (Acute 02/13/20). S/P left knee arthroscopy (Acute). Status post excisional biopsy (Acute). 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 She has one son who lives in another apartment in her building and she has 2 daughters. 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 She is independent at baseline in the community. CURRENT FUNCTIONAL STATUS:: Debora was sitting up in bed when CM met with her. She was pleasant and agreeable to conversation. ADVANCE DIRECTIVES:: Reports document is at home. Has patient been provided with info about the portal/API?: Yes Did the patient sign up for the portal?: Yes (Previously) CODE STATUS:: Full Code INSURANCE COVERAGE / FINANCIAL ISSUES:: [employer] CURRENT HOME/COMMUNITY SERVICES/EQUIPMENT:: No current services or equipment at this time. PRIMARY CARE PHYSICIAN:: Rik Abebe POTENTIAL DISCHARGE NEEDS:: Follow up with surgeon and discharge plan of care PATIENT/FAMILY EDUCATION NEEDS:: Discharge plan, limitations, follow up plan, discuss Ask Me Three. ANTICIPATED BARRIERS TO DISCHARGE:: None identified at this time. TRANSPORTATION:: Debora will transport home via private vehicle with family. PLAN:: Debora will return home when ready per MD, no additional services anticipated at this time. She will follow up with her surgeon and discharge plan of care as prescribed. Debora will transport home via private vehicle with family.
--- NOTE | 2020-05-16 10:47 | W.NUTCONSULT ---
Date of service: 05/16/20 Time of Service: 10:48 Nutritional Consult ASSESSMENT: 59 year old female admitted (05/15/20) with diverticulitis. s/p cystoscopy. Following clear diet. Inadequate po intake x day 3, at risk for nutritional decline if unable to advance and meet > 50% of nutrient needs by mouth in next 48 hours. Estimated Needs: 5853-0864 kcal, 71-70 g protein. Labs indicate elevated triglycerides (285 mg/dl), other lipids wnl. Home meds include rosuvastatin . Well nourished prior to acute illness. NUTRITIONAL DIAGNOSIS: Inadequate nutrient intake due to NPO status or inadequate intake on clear diet INTERVENTION: will follow and provide necessary recommendations MONITORING AND EVALUATION: po intake, diet advancement, weight, labs Time Spent in Nutritional Counseling and Treatment: 0 time spent face to face
--- NOTE | 2020-05-16 11:06 | PDOC.ANES ---
Anesthesia Note Daily Epidural Maintenance Note Pt is sitting up in bed. She denies pain placing it at a zero at this time. Debora states that her right leg is heavier than the left. Educated her on the effects that the epidural has on both the motor and sensory nerves. She verbalizes understanding. Epidural basal rate was dropped from 10cc/hr to 8cc/hr. Pt will be reassessed this afternoon. Pt did walk in [place] with two person assistance. I encouraged Debora to walk as much as possible to prevent complications and promote healing. VSS. Condition stable. Dr. Castro at bedside.
--- NOTE | 2020-05-16 11:34 | CHAPLAIN ---
Debora, an [employer] employee, was resting in bed when I visited. She said she was going to get up for the first time with her nurse a bit later this morning. Debora his hoping this surgery will take care of health issues she's been dealing with for a while. She expects to be here a few days.
--- NOTE | 2020-05-16 11:35 | PHA.REVIEW ---
Pharmacy Admission Review - Admission Clinical Review (Last Reviewed 05/15/20 @ 06:23 by Cathie Chaves) Diverticulitis large intestine w/o perforation or abscess w/o bleeding (Acute) Tobacco abuse (Acute 06/05/14) gabapentin Allergy (Severe, Verified 05/15/20 06:19) coughing, swallowing issues, tongue swelling bacitracin Allergy (Intermediate, Verified 05/15/20 06:19) Skin Rash Sulfa (Sulfonamide Antibiotics) Allergy (Verified 05/15/20 06:19) RASH, DIFFICULTY BREATHING atorvastatin [From Lipitor] Adverse Reaction (Severe, Verified 05/15/20 06:19) coughing Height 5 ft 2 in Weight 72.7 kg - Renal Dosing Renal Dosing: BUN 6 mg/dL (7-18) L 05/16/20 07:30 Creatinine 0.85 mg/dL (0.55-1.02) 05/16/20 07:30 Medications needing adjustments: Reviewed (Crcl ~57.7 mL/min current meds okay) - Anticoagulation Anticoagulation: Hgb 12.7 g/dL (11.2-15.7) 05/16/20 07:30 Hct 38.8 % (36.0-46.0) 05/16/20 07:30 Plt Count 229 10^3/uL (130-400) 05/16/20 07:30 Creatinine 0.85 mg/dL (0.55-1.02) 05/16/20 07:30 DVT Prohphylaxis: Reviewed Medications: Enoxaparin - Opiate Usage Evaluate Pain Scale/Pains Meds: Reviewed Scheduled Bowel Reg ordered if on Opiates?: No (pt has alvimopan ordered) - Relevant Labs Sodium 139 mmol/L (136-145) 05/16/20 07:30 Potassium 4.6 mmol/L (3.5-5.1) 05/16/20 07:30 Chloride 107 mmol/L (98-107) 05/16/20 07:30 Magnesium 1.9 mg/dL (1.8-2.4) 05/16/20 07:30 C-Reactive Protein 7.03 mg/dL (0.0-0.3) H 05/16/20 07:30 Electrolytes, C-Reactive P, ESR: Reviewed - DM Control DM Control: Glucose 97 mg/dL (74-106) 05/16/20 07:30 Insulin Dosing: N/A - Heart Failure/HI EF%, JULY's, B-Blockers, Diuretics: N/A - BP Control BP Control: Blood Pressure 112/68 Blood Pressure 106/67 Blood Pressure 97/64 Blood Pressure 108/73 Blood Pressure 106/71 If elevated: N/A - Qtc Review If Elevated: N/A - IV to PO Switch IV Medications: Reviewed - Home Meds Home Med List reviewed: Reviewed (losartan, rosuvastatin, antibiotics(finished rxs)) - Current meds Current Medication Order Review: Intervened (discontinued preop meds (already given) and duplicate med orders) - Comments Comments/Follow Ups: Watch BP and for med changes (IV to PO, restart of home meds).
--- NOTE | 2020-05-16 13:24 | PDOC.ANES ---
Anesthesia Note Daily Management of Epidural - Note #2 for 05/16/2020 Pt is stating that her pain is currently a 4/10 and still noting a numbness and weakness in right leg. No further changes will be made to the epidural rate today. Toradol (scheduled) 30 mg IV ordered. Epidural site is clean dry and intact. Spoke with RN about premedication prior to walking and to continue to encourage activity. Pt will be reassessed in AM.
[2020-05-16] MEDS: Ketorolac 30 MG/ML VIAL IVP ×2 (13:25→19:48)
[2020-05-16] MEDS: Pantoprazole 40 MG VIAL IVP (15:48)
[2020-05-16] MEDS: Normal Saline Flush 10 ML SYR IVP ×2 (15:49→19:49)
[2020-05-16] MEDS: Enoxaparin 40 MG/0.4 ML SYR SC (15:49)
[2020-05-17] VITALS (11 sets, daily range): BP systolic 99–127; BP diastolic 62–78; PULSE 60–71; RESP 17–19; TEMP 36.6–36.8; O2SAT 97–100
[2020-05-17] MEDS: FentaNYL/ROPIvacaine 2 mcg/ml and 0.1% 200 ML CADD Cassette EP (00:19)
[2020-05-17] MEDS: Ketorolac 30 MG/ML VIAL IVP ×4 (01:30→19:50)
[2020-05-17] MEDS: Normal Saline Flush 10 ML SYR IVP ×3 (01:31→19:54)
[2020-05-17] MEDS: Normal Saline 1,000 ML 125 ML IV (02:56)
[2020-05-17] MEDS: ACETAMINOPHEN 1,000 MG/100 ML BTL 400 MG IVPB ×4 (06:10→19:53)
--- NOTE | 2020-05-17 13:39 | PDOC.CMPRO ---
- If Service Date Differs Date of service: 05/17/20 Time of Service: 13:39 Care Management Progress Note S/O: Debora was sitting up in her chair when CM met with her. She was pleasant and engaged in conversation. She reported that she was feeling pretty good today, and that she thinks she is making good progress healing. Per MD, she may be ready for discharge tomorrow. CM will continue to follow. A: Debora is a 59 year old female admitted to [facility] on 05/15/20 for laprascopic sigmoid resection for recurrent diverticulitis. P: Debora will return home when medically ready for discharge. She will not need any services at this time. She will transport home via private vehicle by family. She will follow up with her PCP and discharge plan of care. CM will continue to follow.
[2020-05-17] MEDS: Lidocaine 2% Multi-Dose 50 ML VIAL (14:28)
--- NOTE | 2020-05-17 14:45 | PDOC.ANES ---
Anesthesia Note Anesthesia Epidural Daily Maintenance/ DC Pt. sitting up in bed watching TV. Describes her pain as 2/10. Ambulated several times today. Improving muscle strength/ sensation in right leg. Discussed potential of going home tomorrow. Educated pt with regard to options moving forward with regard to pain control. Pt. verbalized understanding. Pt wishes to turn off and discontinue epidural in an effort to expedite her transition home. Ofirmev and Toradol IV are scheduled analgesia already ordered. Lovenox has not been given for 22 hours. Oversaw DC of epidural catheter by Caprice Carroll RN. Black tip intact. No evidence bleeding, infection, or hematoma.
--- NOTE | 2020-05-17 14:46 | PGE_ITS ---
Date of Service Date of service: 05/17/20 Time of Service: 12:00 Assessment and Plan Assessment and plan (1) Diverticulitis large intestine w/o perforation or abscess w/o bleeding: Status: Acute Assessment and plan: Postop day 2 status post sigmoid resection for chronic diverticulitis. She is doing well. No signs of infection in the knee. She is tolerating a soft diet and having bowel movements. Her pain is well controlled. We will DC her epidural today. We will see how she does for pain control. And adjust as necessary. Try to avoid any and all narcotics. Continue to walk and pulmonary toilet. She definitely needs to stop smoking. Soft low fiber diet on discharge. Hopefully will be able to go home in the morning. (2) Acute diverticulitis: Status: Acute (3) Tobacco abuse: Status: Acute (4) History of total knee arthroplasty: Status: Acute Qualifiers: Laterality: left Qualified Code(s): Z96.652 - Presence of left artificial knee joint Subjective Subjective Interval history since last seen: Pt is doing well. no headaches. No CP or SOB. no productive cough. no dysuria. no leg pain or swelling. She did have a small BM. It was loose. No blood. She has been tolerating a soft diet. minimal pain- but still has epidural in. Good clear urine output. She has been up and wlaking. numbness in right leg is better Exam HENMT Other: No eye pain, redness, drainage. No thrush. No sore throat. No mouth pain. No dental malocclusion. Resp Effort & Inspection: normal respiratory effort and able to speak in complete sentences Auscultation: clear to auscultation bilaterally Percussion: hyperresonance Other: Few expiratory wheezes left base. Otherwise clear. No productive cough. Cardio Rate: regular rate Rhythm: regular rhythm GI Other: Incision clean dry and intact. Good bowel sounds. Minimal pain. Mild d istention/bloating. Extrem General: no clubbing, cyanosis or edema Other: She still has the epidural in place. She has been able to get up and walk. Her knee shows no redness or swelling. Objective Objective Clinical Data: Vital Signs Temperature 36.8 C 05/17/20 11:09 Temperature Source Tympanic 05/17/20 11:09 Pulse 60 05/17/20 11:09 Pulse Rhythm Regular 05/17/20 08:35 Respiratory Rate 19 05/17/20 11:09 Respiratory Effort Non-Labored 05/17/20 08:35 Respiratory Depth Normal 05/17/20 08:35 Respiratory Pattern Normal 05/17/20 08:35 Blood Pressure 102/71 05/17/20 11:09 Pulse Oximetry 100 05/17/20 11:09 Respiratory End-tidal CO2 28 05/15/20 13:55 Oxygen Delivery Method Room Air 05/17/20 11:09 Oxygen Flow Rate 0 05/17/20 11:09 Pain Level 3 05/17/20 11:09 Comment repeat so2 with pulse ox ear = 97% @0348 05/17/20 03:25 Intake & Output 05/16/20 05/17/20 05/17/20 23:59 11:59 23:59 Intake Total 2140 / 5109.917 2449.167 / 2449.167 Output Total 525 / 1725 1750 / 1750 Balance 1615 / 3384.917 699.167 / 699.167 Intake: IV 1210 / 3969.917 1179.167 / 1179.167 Oral 930 / 1140 1270 / 1270 Output: Urine 525 / 1725 1750 / 1750 Other: Urine Color Dark Red Brown Green Urine Appearance Clear Clear Urine Odor Normal Comment Tea-colored urine. Stool Size Small Stool Characteristics Liquid Voiding Methods Indwelling Catheter Laboratory Results WBC 10.50 10^3/uL (4.4-10.8) 05/16/20 07:30 RBC 4.22 10^6/uL (3.93-5.22) 05/16/20 07:30 Hgb 12.7 g/dL (11.2-15.7) 05/16/20 07:30 Hct 38.8 % (36.0-46.0) 05/16/20 07:30 MCV 91.9 fL (80-95) 05/16/20 07:30 MCH 30.1 pg (27.0-33.0) 05/16/20 07:30 MCHC 32.7 % (32.0-36.0) 05/16/20 07:30 RDW 13.3 % (11.7-14.6) 05/16/20 07:30 Plt Count 229 10^3/uL (130-400) 05/16/20 07:30 MPV 10.5 fL (8.0-11.0) 05/16/20 07:30 Immature Gran % 0.5 05/16/20 07:30 Neutrophils % 85.2 05/16/20 07:30 Lymphocytes % 7.1 05/16/20 07:30 Monocytes % 7.0 05/16/20 07:30 Eosinophils % 0.0 05/16/20 07:30 Basophils % 0.2 05/16/20 07:30 Absolute Neutrophils 8.95 10^3/uL (1.2-6.7) H 05/16/20 07:30 Absolute Lymphocytes 0.75 10^3/uL (1.2-3.4) L 05/16/20 07:30 Absolute Monocytes 0.73 10^3/uL (0.1-0.8) 05/16/20 07:30 Absolute Eosinophils 0.00 10^3/uL (0.0-0.7) 05/16/20 07:30 Absolute Basophils 0.02 10^3/uL (0.0-0.2) 05/16/20 07:30 Sodium 139 mmol/L (136-145) 05/16/20 07:30 Potassium 4.6 mmol/L (3.5-5.1) 05/16/20 07:30 Chloride 107 mmol/L (98-107) 05/16/20 07:30 Carbon Dioxide 23.1 mmol/L (21.0-32.0) 05/16/20 07:30 Anion Gap 8.9 mmol/L (3-11) 05/16/20 07:30 BUN 6 mg/dL (7-18) L 05/16/20 07:30 Creatinine 0.85 mg/dL (0.55-1.02) 05/16/20 07:30 Estimated GFR/1.73 m2 >= 60.00 (mL/min/1.73m2) 05/16/20 07:30 Glucose 97 mg/dL (74-106) 05/16/20 07:30 Calcium 8.1 mg/dL (8.5-10.1) L 05/16/20 07:30 Magnesium 1.9 mg/dL (1.8-2.4) 05/16/20 07:30 Total Bilirubin 0.4 mg/dL (0.2-1.0) 05/16/20 07:30 AST 25 U/L (15-37) 05/16/20 07:30 ALT 44 U/L (14-59) 05/16/20 07:30 Alkaline Phosphatase 106 U/L (46-116) 05/16/20 07:30 C-Reactive Protein 7.03 mg/dL (0.0-0.3) H 05/16/20 07:30 Total Protein 6.0 g/dL (6.4-8.2) L 05/16/20 07:30 Albumin 3.1 g/dL (3.4-5.0) L 05/16/20 07:30
--- NOTE | 2020-05-17 14:54 | DSE_ITS ---
Date of service: 05/18/20 Time of Service: 10:55 DS: Diagnosis Discharge Diagnosis (1) Diverticulitis large intestine w/o perforation or abscess w/o bleeding: Status: Inactive (2) Acute diverticulitis: Status: Resolved (3) Tobacco abuse: Status: Resolved (4) History of total knee arthroplasty: Status: Resolved Discharge Plan Disposition Patient Disposition: HOME Condition: Good Discharge Details Reason For Visit: LAPRASCOPIC SIGMOID RESECTION FOR RECURRENT DIVERT Admit Date/Time: 05/15/20 06:04 Admit Provider: Mariana Castro Attending Provider: Mariana Castro Primary Care Provider: Rik Abebe Home Meds and New Rx's Prescriptions: New ibuprofen [IBU] 600 mg tablet 600 mg PO Q6H PRNQty: 60 RF: 6 prednisone 20 mg Tablet 20 mg PO DAILY Qty: 3 RF: 0 hydrocortisone 1 % Cream 0 g topical TID Qty: 1 RF: 0 nystatin 100,000 unit/gram Cream 0 g topical BID 1 Days Qty: 1 RF: 0 oxycodone 5 mg Tablet 5 mg PO Q6H PRN PRNQty: 8 RF: 0 prednisone 5 mg tablet 5 mg PO DAILY Qty: 3 RF: 0 Continued (DME) [Left] knee medial fiberglasser brace Qty: 1 RF: 0 losartan 25 mg tablet 25 mg PO DAILY Qty: 90 RF: 3 rosuvastatin 5 mg tablet 5 mg PO DAILY Qty: 90 RF: 3 acetaminophen 500 mg tablet 1,000 mg PO PRN PRN (Reason: pain) RF: 0 Discontinued moxifloxacin 400 mg tablet 400 mg PO DAILY Qty: 7 RF: 0 neomycin 500 mg tablet 500 mg PO DIRECTED Qty: 8 RF: 0 metronidazole [Flagyl] 500 mg tablet 500 mg PO DIRECTED Qty: 8 RF: 0 ondansetron HCl [Zofran] 4 mg tablet 4 mg PO Q8H Qty: 7 RF: 0 acetaminophen [Tylenol] 325 mg Tablet 650 mg PO Q4H PRN PRNQty: 0 RF: 0 Discharge Instructions Additional Instructions: Keep an ice bag on the incision. 20 minutes on and 20 minutes off. Ice keeps the swelling down and swelling causes pain. Make sure you wrap the ice pack in a towel and don't apply directly to the skin. -No driving x1 week or of you are taking pain medications. -If you have madeline or sutures in place, they will be removed at your clinic appointment in 7-10 days. -Follow-up with Dr. Castro on Wednesday -soft diet: No beef/pork raw vegetables x1 -week. Cooked vegetables are fine. low fiber diet for 1 week. -no straining to move bowels -pain meds are very constipating: if you do not move your bowels daily take a dose of OTC milk of magnesia -It is ok to shower. No bathe, soaking, swimming or hot tubs -Keep wound clean and dry. Wash incision with soap and water daily. Pat dry, don't rub. -If you do not have steri-tapes on your incision, than keep the wound covered with a gauze and antibacterial ointment. -Protein supplements daily. You may find that your appetite is smaller. Eat 3-6 small meals throughout the day. It is important to drink lots of water after surgery, 6-10 glasses a day. -If you were given an incentive spirometry (breathing pasting inspector?), continue to do this 10x/hour while awake. -We do want you up walking, at least 5-6 times per day. This is very important to prevent pneumonia and blood clots. You can climb stairs, take them slowly. -No lifting over 5 pounds. This is very important to avoid developing a hernia in your incision. -You may find that you are very tired after surgery- this is normal. -please do not smoke for a minimum of 72 hours after surgery. Gastrointestinal Soft Diet Overview Overview What is a gastrointestinal soft diet? This diet is soft in texture, low in fiber, and easy to digest. The goal is to decrease) in the bowel that may cause and discomfort. This diet is often used after abdominal surgery or as a transitional diet after flares. Meats & Meat Substitutes ? Foods Allowed: Chicken, turkey, fish, tender cuts of beef and pork, ground meats, eggs, creamy nut butters, tofu, skinless hot dogs, sausage patties without whole spices ? Foods to Avoid : Tough, fibrous meats with gristle, meat with casings (hot dogs, sausage, kielbasa), lunch meats with whole spices, shellfish, beans, jacob [place] peanut butter, nuts Fruits and Juices ? Foods Allowed: Fruit juices without pulp, banana, avocado, applesauce, canned peaches and pears, cooked fruit without the skin/seeds ? Foods to Avoid: Juices with pulp, fresh fruit (except banana and avocado), dried fruits, canned fruit cocktail and pineapple, coconut, frozen/thawed berries Vegetables ? Foods Allowed: Well-cooked or canned vegetables, potatoes without skin, tomato sauces, vegetable juice ? Foods to Avoid: Raw vegetables, all corn, all mushrooms, stewed tomatoes, potato skins, stir-ann vegetables, sauerkraut, pickles, olives, all dried beans, peas, and legumes Cereals and Grains ? Foods Allowed: Low- fiber dry or cooked cereals (less than 2 grams fiber per serving), white rice, pasta, macaroni, or noodles ? Foods to Avoid: Cereals with nuts, berries, dried fruits, whole grain cereals, bran cereals, granola, brown or wild rice, whole grain pasta Breads and Crackers ? Foods Allowed: White/refined breads and rolls, plain bagel, toast, plain crackers, chata crackers ? Foods to Avoid: Whole grain breads- including white whole grain; bread/ rolls with raisins, nuts or seeds, multi-grain crackers Dairy ? Foods Allowed: Milk, cheese, yogurt, milkshakes, pudding, ice cream, cottage cheese, sherbet ; lactose free or low lactose versions if lactose intolerant ? Foods to Avoid: Dairy product mixed with fresh fruit (except banana), berries, nuts or seeds Desserts ? Foods Allowed: Plain cake, pudding, custard, ice cream, sherbet, gelatin, fruit whips ? Foods to Avoid: Any dessert that contains nuts, dried fruits, coconut, or fr uits with seeds Herbs and Spices ? Foods Allowed: All ground spices or herbs, salt ? Foods to Avoid: Whole spices such as peppercorns, whole cloves, anise seeds, celery seeds, blaine, denisse seeds, and fresh herbs Snacks/Other Foods ? Foods Allowed: Sugar, honey, jelly, mayonnaise, mustard, soy sauce, oil, butter, margarine, marshmallows, cookies without dried fruits or nuts, snack chips and pretzels using refined flours ? Foods to Avoid: Carbonated beverages, jams or jellies with seeds, popcorn After several weeks, slowly start to reintroduce the ?Foods to Avoid? back into your diet unless your doctor has told you otherwise. Try a small portion of one of these foods each day. If it does not bother you within 24 hours, it can be added to your diet. Continue to add new foods in this way. Some people may continue to have food sensitivities and may need to continue to avoid certain foods. If you cannot tolerate a food, avoid that food for a few weeks before you try it again. Guidelines when eating 1. Avoid any food that you cannot tolerate or that causes gas, bloating, or stomach pain. 2. Make time for your meals. Do not eat while you are in a hurry. Cut your food into small pieces. Chew each bite to a mashed potato consistency. Do not eat when you cannot concentrate on chewing well. 3. Drink at least 6-8 cups of fluid per day Fluids include: water, coffee, tea, juice, milk, popsicles, soups, gelatin, pudding, ice cream, sherbet, and yogurt. In addition, choose caffeine-free beverages more often, especially if you are having diarrhea. 4. Stand Alone Forms: Nursing Discharge Form Referrals: Mariana Castro DO [OSTEOPATHIC DOCTOR] - 05/24/20 (Call the office on Wednesday to schedule an appointment to be seen on Wednesday the ) Activity:: No strenuous activity or lifting over 5 pounds for 2 weeks Equipment/Supplies:: No Equipment Needed Diet:: Soft/low residue/low fiber diet x1 week DS: Summary Status at Discharge Functional status at discharge: independent ambulation Overall status at discharge: patient is back to baseline Mental Status: mental status grossly normal Speech and Movement: speech and movement normal Mood: congruent mood Affect: normal affect Exam Psych Mental Status: mental status grossly normal Speech and Movement: speech and movement normal Mood: congruent mood Affect: normal affect DS: Data Vitals/I&O Vitals and I&O: Vital Signs Temperature 36.8 C 05/17/20 11:09 Temperature Source Tympanic 05/17/20 11:09 Pulse 60 05/17/20 11:09 Pulse Rhythm Regular 05/17/20 08:35 Respiratory Rate 19 05/17/20 11:09 Respiratory Effort Non-Labored 05/17/20 08:35 Respiratory Depth Normal 05/17/20 08:35 Respiratory Pattern Normal 05/17/20 08:35 Blood Pressure 102/71 05/17/20 11:09 Pulse Oximetry 100 05/17/20 11:09 Respiratory End-tidal CO2 28 05/15/20 13:55 Oxygen Delivery Method Room Air 05/17/20 11:09 Oxygen Flow Rate 0 05/17/20 11:09 Pain Level 4 05/17/20 14:52 Comment repeat so2 with pulse ox ear = 97% @0348 05/17/20 03:25 Intake & Output 05/16/20 05/17/20 05/17/20 23:59 11:59 23:59 Intake Total 2140 / 5109.917 2449.167 / 2449.167 Output Total 525 / 1725 1750 / 2300 550 / 2300 Balance 1615 / 3384.917 699.167 / 149.167 -550 / 149.167 Intake: IV 1210 / 3969.917 1179.167 / 1179.167 Oral 930 / 1140 1270 / 1270 Output: Urine 525 / 1725 1750 / 2300 550 / 2300 Other: Urine Color Dark Red Brown Yellow Green Green Urine Appearance Clear Clear Urine Odor Normal Comment Tea-colored urine. Stool Size Small Stool Characteristics Liquid Voiding Methods Indwelling Catheter FOR[facility], [facility] Medical History (Updated 05/18/20 @ 10:53 by Claudia Queen MD) Arthritis of left knee (Inactive) Basal cell carcinoma (12/16/15) left lower eyelid Diverticulitis of large intestine without perforation or abscess with bleeding (Resolved 04/20/18) Elevated alkaline phosphatase measurement (Inactive) Unclear if there is any clinical significance to the persistently elevated alkaline phosphatase. She has no particular symptoms today. Reasonable to recheck it in about 6 months. If it remains elevated at that time, we can consider checking a bone isoenzyme. Hyperlipemia (Inactive) Hypertension (Acute) Internal derangement of left knee (Inactive) Knee osteonecrosis, 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/13/20 Neoplasm of unspecified nature of bone, soft tissue, and skin (Resolved 10/30/15) Right shoulder pain (Inactive) Tendonitis of shoulder, right (Inactive) Tobacco abuse (Resolved 06/05/14) Surgical History (Updated 05/18/20 @ 10:48 by Claudia Queen MD) Colonoscopy - MAC (06/24/18) Dr Heath, results - diverticulitis, repeat 10 years History of total knee arthroplasty (Resolved 02/13/20) S/P left knee arthroscopy (Acute) Status post excisional biopsy (Acute) Left eye (skin lesion) Family History Mother Diabetes Stroke Hypertension Father Lymphoma Brother Myocardial infarction Brother Brain tumor Social History Smoking/Tobacco Use Status: Current-Occasional Tobacco Type: cigarettes Tobacco: How many years used: 20 Alcohol Intake: current Alcohol Intake frequency: a few times a week Alcohol type: beer and wine Drug use: Never Substance use type: does not use Household members: none Housing: house Number of Children: 2 current occupation: [employer] Current gender identity: female What is your relationship status?: Panel score (0-1 are the most socially isolated patients): 0 What type of physical activity do you participate in: regular exercise and other Details: physically active daily Seatbelt use: always Drive intox or ride w/intox driver starting gate: No Working smoke detector in home: Yes Fire extinguisher in home: Yes Carbon monox detector in home: Yes Do you feel safe at home: Yes Do you feel safe in your relationship?: Yes History History 2 Para 2 Hx # Term Pregnancies Multiple births Hx # Pregnancies Ectopic pregnancies AB induced Hx Number of Living Children AB spontaneous
[2020-05-17] MEDS: Pantoprazole 40 MG VIAL IVP (15:33)
[2020-05-17] MEDS: Lidocaine 5% Patch 1 PATCH TP (18:17)
[2020-05-17] MEDS: Enoxaparin 40 MG/0.4 ML SYR SC (19:52)
[2020-05-17] MEDS: diphenhydrAMINE 25 MG CAP PO (20:45)
[2020-05-18] MEDS: Ketorolac 30 MG/ML VIAL IVP ×2 (01:51→07:40)
[2020-05-18] MEDS: Normal Saline Flush 10 ML SYR IVP ×2 (01:51→07:47)
[2020-05-18] MEDS: ACETAMINOPHEN 1,000 MG/100 ML BTL 400 MG IVPB ×2 (01:52→07:39)
[2020-05-18] MEDS: Normal Saline 500 ML 30 ML IV (01:55)
[2020-05-18] MEDS: diphenhydrAMINE 25 MG CAP PO (06:06)
[2020-05-18 06:58] LABS: Abs Immature Grans 0.03 10^3/uL (0.0-0.06); Absolute Basophil Count 0.02 10^3/uL (0.0-0.2); Absolute Eosinophil Count 0.19 10^3/uL (0.0-0.7); Absolute Lymphocyte Count 1.18 10^3/uL (1.2-3.4); Absolute Monocyte Count 0.33 10^3/uL (0.1-0.8); Absolute Neutrophil Count 5.59 10^3/uL (1.2-6.7); Basophils % 0.3; Eosinophils % 2.6; HCT 34.2 % (36.0-46.0); HGB 11.3 g/dL (11.2-15.7); Immature Grans % 0.4; Lymphocytes % 16.1; MCH 29.8 pg (27.0-33.0); MCV 90.2 fL (80-95); MPV 10.7 fL (8.0-11.0); Monocytes % 4.5; Neutrophils % 76.1; Nucleated RBC 0 %; Platelet Count 218 10^3/uL (130-400); RBC 3.79 10^6/uL (3.93-5.22); RDW 13.7 % (11.7-14.6); RDW-SD 45.1 fL; WBC 7.34 10^3/uL (4.4-10.8)
--- NOTE | 2020-05-18 07:03 | NUR.NOTE ---
Patient complaint of increased itching and rashes to the body. On examination, swelling noted to the left cheek, flushed cheeks also observed. Denies any difficulty swallowing or breathing problems. Redness and itching under bilateral breast. Redness and itching to the back , extending now to the upper back. Benadryl administered. Hyper-allergenic linen and gowns ordered. Charge Nurse Verito informed of patient current complains
[2020-05-18 07:26] VITALS: BP 111/76; PULSE 68; RESP 18; TEMP 36.7; O2SAT 100
[2020-05-18] MEDS: traMADol 50 MG TAB PO ×3 (09:06→23:43)
--- NOTE | 2020-05-18 10:28 | PGE_ITS ---
Date of Service Date of service: 05/18/20 Time of Service: 10:28 Assessment and Plan Assessment and plan (1) Tobacco abuse: Status: Resolved (2) Rash in adult: Status: Acute Assessment and plan: A\\ New development of a rash on her back, upper chest and face. There is swelling of her face. Most likely due to a reaction to a medication. Has a different rash under her Breasts. This looks like a heat rash with possible fungal infection P\\ Reviewed medications. Patient not on antibiotics. Start on Benadryl and hydrocortisone cream Nystatin cream for under her Breasts Daily showers If rash has improved then will D/C home tomorrow (3) S/P laparoscopic-assisted sigmoidectomy: Status: Acute Assessment and plan: A\\ POD#3 doing well from that stand point. Passing flatus and having liquid BM's. Appetite is low P\\ Encourage po intake (4) Hypertension: Status: Acute Assessment and plan: A\\ Restart Home medications Qualifiers: Hypertension type: essential hypertension Qualified Code(s): I10 - Essential (primary) hypertension Subjective Subjective Interval history since last seen: Debora is doing OK today. She is passing gas and had a small liquid stool yesterday. No N/V. Doesn't have much of an appetite. She developed a rash on her back, chest, face and underneath her breasts yesterday after the epidural was pulled. She has not been started on any new medications until today. She took her first Tramadol today. She does tell me that when she had her knee done she took Gabapentin and on day 5 she developed swallowing issues and tongue swelling. Exam Const General: cooperative, comfortable and no acute distress Orientation: alert and oriented x3 HENMT Head: normocephalic and atraumatic Chest Breast inspection: Other Other: 1. Chest- there is a raised rash on her upper chest 2. Breasts- under her breasts there is some redness. No raised rash Resp Effort & Inspection: normal respiratory effort Auscultation: clear to auscultation bilaterally Cardio Rate: regular rate Rhythm: regular rhythm Heart Sounds: no gallops, no murmurs and no rubs GI Palpation: soft, no hepatosplenomegaly and nontender Auscultation: normal bowel sounds Other: incisions- clean, dry. [place] in place. There is some bruising around the umbilical incision. Abdomen is soft. Appropriately tender to palpation. No guarding or rebound. Normal BS Skin Hair: normal Nails: normal Other: Back- hives noted along the tape from the epidural. Its raised. No discharge. Full body images: 1. Raised rash. Objective Objective Clinical Data: Abnormal lab results 05/18/20 Range/Units 06:44 RBC 3.79 L (3.93-5.22) 10^6/uL Hct 34.2 L (36.0-46.0) % Absolute Lymphocytes 1.18 L (1.2-3.4) 10^3/uL Vital Signs Temperature 98.1 F 05/18/20 07:26 Temperature Source Tympanic 05/18/20 07:26 Pulse 68 05/18/20 07:26 Pulse Rhythm Regular 05/18/20 08:59 Respiratory Rate 18 05/18/20 07:26 Respiratory Effort Non-Labored 05/18/20 08:59 Respiratory Depth Normal 05/18/20 08:59 Respiratory Pattern Normal 05/18/20 08:59 Blood Pressure 111/76 05/18/20 07:26 Pulse Oximetry 100 05/18/20 07:26 Respiratory End-tidal CO2 28 05/15/20 13:55 Oxygen Delivery Method Room Air 05/18/20 07:26 Oxygen Flow Rate 0 05/18/20 07:26 Pain Level 5 05/18/20 09:06 Comment repeat so2 with pulse ox ear = 97% @0348 05/17/20 03:25 Intake & Output 05/17/20 05/17/20 05/18/20 11:59 23:59 11:59 Intake Total 2449.167 / 2899.167 450 / 2899.167 790 / 790 Output Total 1750 / 3500 1750 / 3500 800 / 800 Balance 699.167 / -600.833 -1300 / -600.833 -10 / -10 Intake: IV 1179.167 / 1389.167 210 / 1389.167 100 / 100 Oral 1270 / 1510 240 / 1510 690 / 690 Output: Urine 1750 / 3500 1750 / 3500 800 / 800 Other: Urine Color Brown Green Green Green Urine Appearance Clear Clear Clear Urine Odor Normal None Comment Tea-colored urine. patient has a lightish color greenish coloration light greenish coloration Stool Size Small Small Stool Characteristics Liquid Soft Voiding Methods Toilet Toilet Laboratory Results WBC 7.34 10^3/uL (4.4-10.8) 05/18/20 06:44 RBC 3.79 10^6/uL (3.93-5.22) L 05/18/20 06:44 Hgb 11.3 g/dL (11.2-15.7) 05/18/20 06:44 Hct 34.2 % (36.0-46.0) L 05/18/20 06:44 MCV 90.2 fL (80-95) 05/18/20 06:44 MCH 29.8 pg (27.0-33.0) 05/18/20 06:44 MCHC 33.0 % (32.0-36.0) 05/18/20 06:44 RDW 13.7 % (11.7-14.6) 05/18/20 06:44 Plt Count 218 10^3/uL (130-400) 05/18/20 06:44 MPV 10.7 fL (8.0-11.0) 05/18/20 06:44 Immature Gran % 0.4 05/18/20 06:44 Neutrophils % 76.1 05/18/20 06:44 Lymphocytes % 16.1 05/18/20 06:44 Monocytes % 4.5 05/18/20 06:44 Eosinophils % 2.6 05/18/20 06:44 Basophils % 0.3 05/18/20 06:44 Absolute Neutrophils 5.59 10^3/uL (1.2-6.7) 05/18/20 06:44 Absolute Lymphocytes 1.18 10^3/uL (1.2-3.4) L 05/18/20 06:44 Absolute Monocytes 0.33 10^3/uL (0.1-0.8) 05/18/20 06:44 Absolute Eosinophils 0.19 10^3/uL (0.0-0.7) 05/18/20 06:44 Absolute Basophils 0.02 10^3/uL (0.0-0.2) 05/18/20 06:44 Sodium 139 mmol/L (136-145) 05/16/20 07:30 Potassium 4.6 mmol/L (3.5-5.1) 05/16/20 07:30 Chloride 107 mmol/L (98-107) 05/16/20 07:30 Carbon Dioxide 23.1 mmol/L (21.0-32.0) 05/16/20 07:30 Anion Gap 8.9 mmol/L (3-11) 05/16/20 07:30 BUN 6 mg/dL (7-18) L 05/16/20 07:30 Creatinine 0.85 mg/dL (0.55-1.02) 05/16/20 07:30 Estimated GFR/1.73 m2 >= 60.00 (mL/min/1.73m2) 05/16/20 07:30 Glucose 97 mg/dL (74-106) 05/16/20 07:30 Calcium 8.1 mg/dL (8.5-10.1) L 05/16/20 07:30 Magnesium 1.9 mg/dL (1.8-2.4) 05/16/20 07:30 Total Bilirubin 0.4 mg/dL (0.2-1.0) 05/16/20 07:30 AST 25 U/L (15-37) 05/16/20 07:30 ALT 44 U/L (14-59) 05/16/20 07:30 Alkaline Phosphatase 106 U/L (46-116) 05/16/20 07:30 C-Reactive Protein 7.03 mg/dL (0.0-0.3) H 05/16/20 07:30 Total Protein 6.0 g/dL (6.4-8.2) L 05/16/20 07:30 Albumin 3.1 g/dL (3.4-5.0) L 05/16/20 07:30
[2020-05-18] MEDS: Rosuvastatin 10 MG TAB 5 MG PO (10:54)
[2020-05-18] MEDS: Losartan 25 MG TAB PO (10:55)
[2020-05-18] MEDS: Hydrocortisone 1% CR 30 GM TUBE TP ×2 (13:05→20:41)
[2020-05-18] MEDS: Nystatin CREAM 15 GM TUBE TP ×2 (13:06→20:41)
--- NOTE | 2020-05-18 13:26 | PDOC.CMPRO ---
- If Service Date Differs Date of service: 05/18/20 Time of Service: 13:26 Care Management Progress Note S/O: Debora was sitting up in her chair when CM met with her. She was pleasant and engaged readily with CM. Debora revealed that she had expected to be discharged home today, however she developed a pruritic rash of unknown etiology over her back, face and upper chest so will remain another day for observation. Debora also shared that she was terminated from her employment at [employer] this week due to her prolonged absence from work. She had been scheduled to have knee surgery in November but that was postponed until December, then she began to develop the bowel obstructions that lead to the current surgery. She shared that she intends to reapply for her position as soon as she knows she is able to return to work. A: Debora is a 59 year old female admitted to [facility] on 05/15/20 for laprascopic sigmoid resection for recurrent diverticulitis. P: Debora will return home when medically ready for discharge. She will not need any services at this time. She will transport home via private vehicle by family. She will follow up with her PCP and discharge plan of care. CM will continue to follow.
[2020-05-18] MEDS: diphenhydrAMINE 25 MG CAP 50 MG PO ×2 (13:54→23:44)
[2020-05-18 15:10] VITALS: BP 134/85; PULSE 74; RESP 18; TEMP 38; O2SAT 99
[2020-05-18 17:15] VITALS: TEMP 36.6
[2020-05-18] MEDS: Enoxaparin 40 MG/0.4 ML SYR SC (20:41)
[2020-05-18 22:32] VITALS: BP 130/79; PULSE 71; RESP 18; TEMP 37.5; O2SAT 96
[2020-05-18 23:10] VITALS: BP 119/74; PULSE 82; RESP 17; TEMP 37.4; O2SAT 97
[2020-05-19 04:05] VITALS: BP 125/76; PULSE 82; RESP 17; TEMP 37.3; O2SAT 94
[2020-05-19 07:20] VITALS: BP 134/83; PULSE 75; RESP 18; TEMP 37.2; O2SAT 96
[2020-05-19] MEDS: Pantoprazole 40 MG TABCR PO (07:43)
[2020-05-19] MEDS: Nystatin CREAM 15 GM TUBE TP ×2 (07:43→20:18)
[2020-05-19] MEDS: Hydrocortisone 1% CR 30 GM TUBE TP ×3 (07:43→20:19)
[2020-05-19] MEDS: Rosuvastatin 10 MG TAB 5 MG PO (07:43)
[2020-05-19] MEDS: Losartan 25 MG TAB PO (07:43)
[2020-05-19] MEDS: diphenhydrAMINE 25 MG CAP 50 MG PO ×2 (12:29→20:18)
--- NOTE | 2020-05-19 13:45 | W.PM.PROGNOT ---
Date of Service Date of service: 05/19/20 Time of Service: 12:30 Assessment and Plan Assessment and plan (1) Tobacco abuse: Status: Resolved (2) Rash in adult: Status: Acute Assessment and plan: A\\ Worsening rash on her back, flanks and chest and abdomen. Itching. Swelling and rash on her face stable. P\\ Reviewed medications. Patient not on antibiotics. Continue cortisone cream Start on Prednisone po Benadryl as needed for itching Continue PPI to protect her stomach (3) S/P laparoscopic-assisted sigmoidectomy: Status: Acute Assessment and plan: A\\ POD#4 doing well from that stand point. Passing flatus and having liquid BM's. Appetite is low P\\ Encourage po intake (4) Hypertension: Status: Acute Assessment and plan: A\\ Restart Home medications Qualifiers: Hypertension type: essential hypertension Qualified Code(s): I10 - Essential (primary) hypertension Subjective Subjective Interval history since last seen: Debora is feeling well from her surgery. Her only complaint is increased itching from the rash she has. She thinks it is worse but states nursing staff has told her it is the same. No N/V. Passing flatus. Had a liquid BM today. Pain with movement around her lower phanensteal incision. Exam Const General: cooperative, comfortable and no acute distress Orientation: alert and oriented x3 Resp Effort & Inspection: normal respiratory effort Auscultation: clear to auscultation bilaterally Cardio Rate: regular rate Rhythm: regular rhythm GI Inspection: other (rash) Palpation: soft, no hepatosplenomegaly and tender (appropriate around incisions) with no rebound tenderness Auscultation: normal bowel sounds Skin Other: Extensive rash now from buttocks to neck, chest and abdomen and right and left flanks. Legs and arms normal. Full body images: 1. raised rash 2. incision 3. raised rash Objective Objective Clinical Data: Vital Signs Temperature 99.0 F 05/19/20 07:20 Temperature Source Tympanic 05/19/20 07:20 Pulse 75 05/19/20 07:20 Pulse Rhythm Regular 05/19/20 08:15 Respiratory Rate 18 05/19/20 07:20 Respiratory Effort Non-Labored 05/19/20 08:15 Respiratory Depth Normal 05/19/20 08:15 Respiratory Pattern Normal 05/19/20 08:15 Blood Pressure 134/83 05/19/20 07:20 Pulse Oximetry 96 05/19/20 07:20 Respiratory End-tidal CO2 28 05/15/20 13:55 Oxygen Delivery Method Room Air 05/19/20 07:20 Oxygen Flow Rate 0 05/19/20 07:20 Pain Level 3 05/19/20 07:20 Comment repeat so2 with pulse ox ear = 97% @0348 05/17/20 03:25 Intake & Output 05/18/20 05/19/20 05/19/20 23:59 11:59 23:59 Intake Total 900 / 1690 1230 / 1230 Output Total 1000 / 1800 700 / 1300 600 / 1300 Balance -100 / -110 530 / -70 -600 / -70 Intake: IV 500 / 600 Oral 400 / 1090 1230 / 1230 Output: Urine 1000 / 1800 700 / 1300 600 / 1300 Other: Urine Color Pale Pale Green Green Yellow Green Urine Appearance Sediment Mucous Threads Clear Urine Odor None Normal None Comment Patient uses bathroom in room independently, per patient. Stool Characteristics Liquid Voiding Methods Toilet Toilet Toilet Laboratory Results WBC 7.34 10^3/uL (4.4-10.8) 05/18/20 06:44 RBC 3.79 10^6/uL (3.93-5.22) L 05/18/20 06:44 Hgb 11.3 g/dL (11.2-15.7) 05/18/20 06:44 Hct 34.2 % (36.0-46.0) L 05/18/20 06:44 MCV 90.2 fL (80-95) 05/18/20 06:44 MCH 29.8 pg (27.0-33.0) 05/18/20 06:44 MCHC 33.0 % (32.0-36.0) 05/18/20 06:44 RDW 13.7 % (11.7-14.6) 05/18/20 06:44 Plt Count 218 10^3/uL (130-400) 05/18/20 06:44 MPV 10.7 fL (8.0-11.0) 05/18/20 06:44 Immature Gran % 0.4 05/18/20 06:44 Neutrophils % 76.1 05/18/20 06:44 Lymphocytes % 16.1 05/18/20 06:44 Monocytes % 4.5 05/18/20 06:44 Eosinophils % 2.6 05/18/20 06:44 Basophils % 0.3 05/18/20 06:44 Absolute Neutrophils 5.59 10^3/uL (1.2-6.7) 05/18/20 06:44 Absolute Lymphocytes 1.18 10^3/uL (1.2-3.4) L 05/18/20 06:44 Absolute Monocytes 0.33 10^3/uL (0.1-0.8) 05/18/20 06:44 Absolute Eosinophils 0.19 10^3/uL (0.0-0.7) 05/18/20 06:44 Absolute Basophils 0.02 10^3/uL (0.0-0.2) 05/18/20 06:44 Sodium 139 mmol/L (136-145) 05/16/20 07:30 Potassium 4.6 mmol/L (3.5-5.1) 05/16/20 07:30 Chloride 107 mmol/L (98-107) 05/16/20 07:30 Carbon Dioxide 23.1 mmol/L (21.0-32.0) 05/16/20 07:30 Anion Gap 8.9 mmol/L (3-11) 05/16/20 07:30 BUN 6 mg/dL (7-18) L 05/16/20 07:30 Creatinine 0.85 mg/dL (0.55-1.02) 05/16/20 07:30 Estimated GFR/1.73 m2 >= 60.00 (mL/min/1.73m2) 05/16/20 07:30 Glucose 97 mg/dL (74-106) 05/16/20 07:30 Calcium 8.1 mg/dL (8.5-10.1) L 05/16/20 07:30 Magnesium 1.9 mg/dL (1.8-2.4) 05/16/20 07:30 Total Bilirubin 0.4 mg/dL (0.2-1.0) 05/16/20 07:30 AST 25 U/L (15-37) 05/16/20 07:30 ALT 44 U/L (14-59) 05/16/20 07:30 Alkaline Phosphatase 106 U/L (46-116) 05/16/20 07:30 C-Reactive Protein 7.03 mg/dL (0.0-0.3) H 05/16/20 07:30 Total Protein 6.0 g/dL (6.4-8.2) L 05/16/20 07:30 Albumin 3.1 g/dL (3.4-5.0) L 05/16/20 07:30
[2020-05-19] MEDS: predniSONE 20 MG TAB 40 MG PO (14:34)
[2020-05-19 15:23] VITALS: BP 119/81; PULSE 71; RESP 18; TEMP 36.9; O2SAT 99
--- NOTE | 2020-05-19 16:17 | CMPROGNOTE_ITS ---
- If Service Date Differs Date of service: 05/19/20 Time of Service: 16:18 Care Management Progress Note S/O: Debora was sitting up in her chair when CM met with her. She was pleasant and engaged readily with CM. Debora's rash continued to spread last night so the decision was made to observe her for another day. Debora expressed that she is fine with this plan since she does not wish to be discharged only to return in a day or two. Surgically, she is doing well, per provider, and her vital signs are stable. A: Debora is a 59 year old female admitted to [facility] on 05/15/20 for laprascopic sigmoid resection for recurrent diverticulitis. P: Debora will return home when medically ready for discharge. She will not need any services at this time. She will transport home via private vehicle by family. She will follow up with her PCP, surgeon and discharge plan of care. CM will continue to follow and assess for discharge planning needs.
[2020-05-19 19:00] VITALS: BP 122/85; PULSE 74; RESP 18; TEMP 37; O2SAT 92
[2020-05-19] MEDS: Enoxaparin 40 MG/0.4 ML SYR SC (20:18)
[2020-05-20] MEDS: diphenhydrAMINE 25 MG CAP 50 MG PO (06:26)
[2020-05-20] MEDS: Acetaminophen 325 MG TAB 650 MG PO (06:31)
--- NOTE | 2020-05-20 07:26 | W.PM.PROGNOT ---
Date of Service Date of service: 05/20/20 Time of Service: 07:00 Assessment and Plan Assessment and plan (1) Tobacco abuse: Status: Resolved (2) Rash in adult: Status: Acute Assessment and plan: A\\ Slight improvement of the rash P\\ Reviewed medications. Patient not on antibiotics. Continue cortisone cream Start on Prednisone po Benadryl as needed for itching Continue PPI to protect her stomach Hopefully Home today (3) S/P laparoscopic-assisted sigmoidectomy: Status: Acute Assessment and plan: A\\ POD#4 doing well from that stand point. Passing flatus and having liquid BM's. Appetite is low P\\ Encourage po intake (4) Hypertension: Status: Acute Assessment and plan: A\\ Restart Home medications Qualifiers: Hypertension type: essential hypertension Qualified Code(s): I10 - Essential (primary) hypertension Subjective Subjective Interval history since last seen: Rash seems to be doing a bit better. Not itching as bad and doesn't think it has spread anymore Exam Const General: cooperative and comfortable Orientation: alert and oriented x3 Resp Effort & Inspection: normal respiratory effort Auscultation: clear to auscultation bilaterally Cardio Rate: regular rate Rhythm: regular rhythm GI Inspection: normal to inspection Palpation: soft, no hepatosplenomegaly and tender (appropriat along the incision) Auscultation: normal bowel sounds Objective Objective Clinical Data: Vital Signs Temperature 98.6 F 05/19/20 19:00 Temperature Source Tympanic 05/19/20 19:00 Pulse 74 05/19/20 19:00 Pulse Rhythm Regular 05/20/20 01:45 Respiratory Rate 18 05/19/20 19:00 Respiratory Effort Non-Labored 05/20/20 01:45 Respiratory Depth Normal 05/20/20 01:45 Respiratory Pattern Normal 05/20/20 01:45 Blood Pressure 122/85 05/19/20 19:00 Pulse Oximetry 92 L 05/19/20 19:00 Respiratory End-tidal CO2 28 05/15/20 13:55 Oxygen Delivery Method Room Air 05/19/20 19:00 Oxygen Flow Rate 0 05/19/20 19:00 Pain Level 3 05/20/20 06:31 Comment repeat so2 with pulse ox ear = 97% @0348 05/17/20 03:25 Intake & Output 05/19/20 05/19/20 05/20/20 11:59 23:59 11:59 Intake Total 1229 Output Total 700 / 2300 1600 / 2300 1000 / 1000 Balance 530 / -340 -870 / -340 -1000 / -1000 Intake: Oral 1229 Output: Urine 700 / 2300 1600 / 2300 1000 / 1000 Other: Urine Color Pale Yellow Brown Yellow Green Urine Appearance Mucous Threads Clear Cloudy Urine Odor Normal Normal None Stool Characteristics Liquid Voiding Methods Toilet Toilet Toilet Laboratory Results WBC 7.34 10^3/uL (4.4-10.8) 05/18/20 06:44 RBC 3.79 10^6/uL (3.93-5.22) L 05/18/20 06:44 Hgb 11.3 g/dL (11.2-15.7) 05/18/20 06:44 Hct 34.2 % (36.0-46.0) L 05/18/20 06:44 MCV 90.2 fL (80-95) 05/18/20 06:44 MCH 29.8 pg (27.0-33.0) 05/18/20 06:44 MCHC 33.0 % (32.0-36.0) 05/18/20 06:44 RDW 13.7 % (11.7-14.6) 05/18/20 06:44 Plt Count 218 10^3/uL (130-400) 05/18/20 06:44 MPV 10.7 fL (8.0-11.0) 05/18/20 06:44 Immature Gran % 0.4 05/18/20 06:44 Neutrophils % 76.1 05/18/20 06:44 Lymphocytes % 16.1 05/18/20 06:44 Monocytes % 4.5 05/18/20 06:44 Eosinophils % 2.6 05/18/20 06:44 Basophils % 0.3 05/18/20 06:44 Absolute Neutrophils 5.59 10^3/uL (1.2-6.7) 05/18/20 06:44 Absolute Lymphocytes 1.18 10^3/uL (1.2-3.4) L 05/18/20 06:44 Absolute Monocytes 0.33 10^3/uL (0.1-0.8) 05/18/20 06:44 Absolute Eosinophils 0.19 10^3/uL (0.0-0.7) 05/18/20 06:44 Absolute Basophils 0.02 10^3/uL (0.0-0.2) 05/18/20 06:44 Sodium 139 mmol/L (136-145) 05/16/20 07:30 Potassium 4.6 mmol/L (3.5-5.1) 05/16/20 07:30 Chloride 107 mmol/L (98-107) 05/16/20 07:30 Carbon Dioxide 23.1 mmol/L (21.0-32.0) 05/16/20 07:30 Anion Gap 8.9 mmol/L (3-11) 05/16/20 07:30 BUN 6 mg/dL (7-18) L 05/16/20 07:30 Creatinine 0.85 mg/dL (0.55-1.02) 05/16/20 07:30 Estimated GFR/1.73 m2 >= 60.00 (mL/min/1.73m2) 05/16/20 07:30 Glucose 97 mg/dL (74-106) 05/16/20 07:30 Calcium 8.1 mg/dL (8.5-10.1) L 05/16/20 07:30 Magnesium 1.9 mg/dL (1.8-2.4) 05/16/20 07:30 Total Bilirubin 0.4 mg/dL (0.2-1.0) 05/16/20 07:30 AST 25 U/L (15-37) 05/16/20 07:30 ALT 44 U/L (14-59) 05/16/20 07:30 Alkaline Phosphatase 106 U/L (46-116) 05/16/20 07:30 C-Reactive Protein 7.03 mg/dL (0.0-0.3) H 05/16/20 07:30 Total Protein 6.0 g/dL (6.4-8.2) L 05/16/20 07:30 Albumin 3.1 g/dL (3.4-5.0) L 05/16/20 07:30
[2020-05-20] MEDS: Pantoprazole 40 MG TABCR PO (07:36)
[2020-05-20] MEDS: predniSONE 20 MG TAB 40 MG PO (08:56)
[2020-05-20] MEDS: Hydrocortisone 1% CR 30 GM TUBE TP ×2 (08:57→13:39)
[2020-05-20] MEDS: Nystatin CREAM 15 GM TUBE TP (08:57)
[2020-05-20] MEDS: Losartan 25 MG TAB PO (08:57)
[2020-05-20] MEDS: Rosuvastatin 10 MG TAB 5 MG PO (08:58)
[2020-05-20 09:10] VITALS: BP 124/70; PULSE 74; RESP 16; TEMP 37.2; O2SAT 98
--- NOTE | 2020-05-20 13:46 | W.NUTRFU ---
Date of service: 05/20/20 Time of Service: 13:47 Nutritional Follow up NOTE: Debora continues on regular soft diet with excellent intake (>75%). Diverticulitis being treated. Meeting 100% nutrient and fluid intake by mouth. Not at nutritional risk at this time. Will continue to follow. Time Spent in Nutritional Counseling and Treatment: 5 min spent face to face
--- NOTE | 2020-05-20 14:38 | PDOC.CMDIS ---
- If Service Date Differs Date of service: 05/20/20 Time of Service: 14:38 LACE Index Scoring Tool - Questions: Length of Stay (in days): 4 - 6 Acuity (Admit via E.D.?): No Comorbidities: Any Tumor E.D. Visits: 3 - Answers: Total Score: 9 Risk of Readmission: Low Risk Care Management Discharge Reason for Hospitalization: Laparoscopic sigmoid resection for recurrent diverticulitis Discharge Plan: Debora will be discharged home with no new services. She will follow up with her PCP and discharge plan of care and transport via private vehicle with friends. Patient/Family Education Needs: Discharge plan, limitations, [id number] up plan, Ask Me Three
== END 2020-05-20 14:20 | disposition home or self-care (01) | DRG 331 ==
LOC: PDS 06:05 → MS 14:15
PROVIDERS: Internal Medicine; Urology; Admitting Provider Surgery; PCP Family Medicine; Visit Provider Surgery
PROC: 0DTN4ZG Resection of Sigmoid Colon, Percutaneous Endoscopic Approach, Hand-Assisted (ICD-10-PCS; CPT 44204; principal; 2020-05-15 07:30)
PROC: 0T788DZ Dilation of Bilateral Ureters with Intraluminal Device, Via Natural or Artificial Opening Endoscopic (ICD-10-PCS; CPT 52332; 2020-05-15 07:30)
PROC: 0DJD8ZZ Inspection of Lower Intestinal Tract, Via Natural or Artificial Opening Endoscopic (ICD-10-PCS; CPT 45378; 2020-05-15 07:30)
PROC: 0TJB8ZZ Inspection of Bladder, Via Natural or Artificial Opening Endoscopic (ICD-10-PCS; CPT 52000; 2020-05-15 07:30)
DX: K57.32 Diverticulitis of large intestine without perforation or abscess without bleeding (principal); R31.0 Gross hematuria; F17.210 Nicotine dependence, cigarettes, uncomplicated; E78.5 Hyperlipidemia, unspecified; I10 Essential (primary) hypertension; Z96.652 Presence of left artificial knee joint
CPT/HCPCS: 52000; 44140; 36415; 80053; 99239; J1650; NC; 83735; 85025; 86140; 88307; J0131; J1100; J1200; J1335; J1885; J2001; J2405; J2704; J3490; J7512

== ENCOUNTER 2020-08-22 11:42 | Outpatient (REF) | payer OTHER, SELFPAY | END 2020-08-22 12:02 | LOC: LBN 11:42 | PROVIDERS: PCP Family Medicine; Visit Provider Nurse Practitioner Family | DX: R30.0 Dysuria (principal) | CPT/HCPCS: 87077; 87086; 87186 ==

== ENCOUNTER 2020-09-19 00:25 | Outpatient (CLI) | payer OTHER, SELFPAY ==
--- NOTE | 2020-09-19 08:40 | DI.MAMMO_ITS ---
EXAM: MG MAMMO SCREENING CLINICAL HISTORY: screening. TECHNIQUE: Bilateral full field digital CC and MLO mammographic images were obtained with 3D tomosyn thesis and utilizing computer aided detection (CAD). COMPARISON: Prior mammograms dating back to 2011, the most recent being September 2019. FINDINGS: There are no spiculated masses nor malignant appearing microcalcification groups. There is no signif icant architectural distortion nor skin thickening-retraction. IMPRESSION: No radiographic evidence of malignancy. BI-RADS Category 1 - Negative Breast Density - Category B - Scattered areas of fibroglandular density Breast density Category C or D implies that the patient has dense breast tissue. Dense breast tissue can make it harder to find cancer on a mammogram. Dense breast tissue is also associated with an incr eased risk of breast cancer. This information about the result of the mammogram report was provided to the patient to raise their awareness. Use this report when you speak with the patient about their risks for breast cancer, which includes their family history. At that time, you may recommend additional screening tests (Ultrasoun d or MRI) as these tests may add significant information. A negative radiographic report should not delay biopsy if a dominant or clinically suspicious mass is present. Up to ten percent of cancers are not identified on mammography. A negative report may reinforce clinical impression. Adenosis and dense breasts may obscure an underlying neoplasm. False positive reports average 6 to 10%. Patient will receive a letter notifying them of these results.
== END 2020-09-19 00:45 ==
PROVIDERS: PCP Family Medicine; Visit Provider Nurse Practitioner Family
DX: Z12.31 Encounter for screening mammogram for malignant neoplasm of breast (principal)
CPT/HCPCS: 77063; 77067

== ENCOUNTER 2021-02-10 17:58 | Outpatient (REF) | payer OTHER, SELFPAY ==
[2021-02-10 19:48] LABS: ALT 41 U/L (14-59); AST 18 U/L (15-37); Albumin 4.1 g/dL (3.4-5.0); Alkaline Phosphatase 121 U/L (46-116); Anion Gap 10.5 mmol/L (3-11); BUN 20 mg/dL (7-18); Bilirubin, Total 0.2 mg/dL (0.2-1.0); CO2 26.5 mmol/L (21.0-32.0); CREATININE 0.8 mg/dL (0.55-1.02); Calcium 8.8 mg/dL (8.5-10.1); Calculated LDL 52 mg/dL (<100); Chloride 104 mmol/L (98-107); Cholesterol 168 mg/dL (<200); GGT 41 U/L (5-55); Glucose 97 mg/dL (74-106); HDL Cholesterol 41 mg/dL (40-60); Potassium 4.7 mmol/L (3.5-5.1); Sodium 141 mmol/L (136-145); Total Protein 7.3 g/dL (6.4-8.2); Triglyceride 376 mg/dL (<150)
== END 2021-02-10 17:59 | disposition home or self-care (01) ==
LOC: NCHCN 17:58
PROVIDERS: PCP Nurse Practitioner Family; Visit Provider Nurse Practitioner Family
DX: R79.89 Other specified abnormal findings of blood chemistry (principal); I10 Essential (primary) hypertension
CPT/HCPCS: 80053; 80061; 82977

== ENCOUNTER 2021-02-24 11:00 | Outpatient (CLI) | payer OTHER, SELFPAY ==
--- NOTE | 2021-02-24 07:45 | DI.RAD_ITS ---
Exam(s) XR KNEE LT 2V AP,LAT EXAM: XR KNEE LT 2V AP,LAT INDICATION: annual f/u. COMPARISON: CR XR STANDING ALIGNMENT from 03/01/2020 CR XR KNEE LT 1V from 03/01/2020 CR XR STANDING ALIGNMENT from 03/01/2020 TECHNIQUE: 2D digital imaging was performed. FINDINGS: There has been no change in the total knee prosthesis or appearance of the surrounding bone. DATA REPOSITORY: RADIATION DOSE DELIVERED:
== END 2021-02-24 11:01 | disposition home or self-care (01) ==
LOC: DIORS 11:00
PROVIDERS: PCP Nurse Practitioner Family; Referring Provider Nurse Practitioner Family; Visit Provider Student in an Organized Health Care Education/Training Program
DX: Z96.652 Presence of left artificial knee joint (principal); Z47.1 Aftercare following joint replacement surgery
CPT/HCPCS: 73560

== ENCOUNTER 2021-02-28 03:16 | Outpatient (CLI) | payer OTHER, SELFPAY ==
--- NOTE | 2021-02-28 | DI.DEXA_ITS ---
Exam(s) XR DEXA BONE DENSITY W/WO NAGA EXAM: XR DEXA BONE DENSITY W/WO NAGA CLINICAL HISTORY: SCREENING FOR OSTEOPOROSIS, Z13.820,ELEVATED ALK PHOS,SMOKER TECHNIQUE: COMPARISON: No exams were available for comparison FINDINGS: DEXA scan was performed according to the usual protocol. Left hip scanning shows T-score -0.6 with l eft femoral neck T-score -1.2. Lumbar spine scanning shows T-score -0.1. Left forearm scanning shows T-score -1.4. IMPRESSION: Measurements are consistent with osteopenia according to the WHO criteria. No evidence of a vertebral compression fracture lateral vertebral scanogram. RADIATION DOSE DELIVERED: Total DLP
== END 2021-02-28 03:36 ==
PROVIDERS: PCP Nurse Practitioner Family; Visit Provider Nurse Practitioner Family
DX: R74.8 Abnormal levels of other serum enzymes (principal); F17.210 Nicotine dependence, cigarettes, uncomplicated; M85.88 Other specified disorders of bone density and structure, other site
CPT/HCPCS: 77080

== ENCOUNTER 2021-08-25 15:47 | Outpatient (REF) | payer OTHER, SELFPAY ==
--- NOTE | 2021-08-25 15:30 | PAPFT_PTH ---
PATIENT: Debora Montgomery LOC: [facility] U#:[id number] AGE/SX: 60/F ROOM: RE08/25/[address]: WILMA Ivy : 1960 BED: DIS: 08/25/2021 SPEC #: [id number] RECD: 08/25/21 18:12 STATUS: SAVANAH REQ #: [id number] LIZABETH: 08/25/21 15:[address]: Le Alvarez DEPT: [facility] Cytology RECD BY: Sandra Talley ENTERED: 08/25/21 18:12 SP TYPE: PAPFT BARTOLOME DR: Sissy Belcher Tissues: 1 - CX/ENDOCX FOR PAP SMEARS Procedures: PAP THIN PREP/[facility] Screening HPV DNA PROBE Comments: [id number]
== END 2021-08-25 15:48 | disposition home or self-care (01) ==
LOC: LBN 15:47
PROVIDERS: PCP Nurse Practitioner Family; Visit Provider Nurse Practitioner Family
DX: Z12.4 Encounter for screening for malignant neoplasm of cervix (principal); Z11.51 Encounter for screening for human papillomavirus (HPV)
CPT/HCPCS: 88142; 87624

== ENCOUNTER → 2021-09-23 00:56 | Outpatient (CLI) | payer OTHER, SELFPAY ==
--- NOTE | 2021-09-23 08:15 | DI.MAMMO_ITS ---
Exam(s) MAMMO SCREENING EXAM: MAMMO SCREENING CLINICAL HISTORY: screening TECHNIQUE: Bilateral full field digital CC and MLO mammographic images were obtained with 3D tomosyn thesis and utilizing computer aided detection (CAD). COMPARISON: Available for comparison. FINDINGS: Masses/Architectural Distortion: None seen. Microcalcifications: No suspicious pleomorphic-type are seen. Skin Thickening/Nipple Retraction: None. IMPRESSION: 1. No significant interval change with no specific features of malignancy noted. 2. Unless there is more urgent need, screening mammography is recommended, as per [employer] guidelines. BI-RADS Category 1 - Negative Breast Density - Category B - Scattered areas of fibroglandular density Breast density category C or D implies that the patient has dense breast tissue. Dense breast tissue is very common and is not abnormal but dense breast tissue can make it harder to find cancer on a ma mmogram. Also, dense breast tissue may increase their breast cancer risk. This information about the result of the mammogram report was provided to the patient to raise their awareness. Use this report when you speak with the patient about their risks for breast cancer, which includes their family hist ory. At that time, you may recommend for more screening tests (Ultrasound or MRI) as they might be us eful based on their risk. A negative radiographic report should not delay biopsy if a dominant or clinically suspicious mass is present. Up to ten percent of cancers are not identified on mammography. A negative report may reinforce clinical impression. Adenosis and dense breasts may obscure an underlying neoplasm. False positive reports average 6 to 10%. Patient will receive a letter notifying them of these results.
== END ==
PROVIDERS: PCP Nurse Practitioner Family; Visit Provider Nurse Practitioner Family
DX: Z12.31 Encounter for screening mammogram for malignant neoplasm of breast (principal)
CPT/HCPCS: 77063; 77067

== ENCOUNTER 2021-12-08 04:05 | Outpatient (CLI) | payer OTHER, SELFPAY ==
[2021-12-08 09:40] LABS: Source Nasal/Nares
[2021-12-08 12:56] LABS: COVID-19 PCR Negative (Negative)
== END 2021-12-08 04:06 | disposition home or self-care (01) ==
LOC: LBO 04:05
PROVIDERS: PCP Nurse Practitioner Family; Visit Provider Student in an Organized Health Care Education/Training Program
DX: Z20.822 Contact with and (suspected) exposure to COVID-19 (principal); Z01.818 Encounter for other preprocedural examination
CPT/HCPCS: 87635

== ENCOUNTER 2021-12-09 10:22 | Day surgery (SDC) | payer OTHER, SELFPAY ==
[2021-12-09] VITALS (7 sets, daily range): BP systolic 128–141; BP diastolic 79–89; PULSE 52–72; RESP 15–23; TEMP 36.2–36.7; O2SAT 97–100; BMI 31.0
[2021-12-09] MEDS: Acetaminophen 500 MG TAB 1000 MG PO (11:11)
[2021-12-09] MEDS: Celecoxib 200 MG CAP 400 MG PO (11:11)
--- NOTE | 2021-12-09 11:17 | ANES.PREOP_ITS ---
General Info Date of Service Date Performed: 12/09/21 Height: 5 ft 2 in Weight: 76.9 kg Body Mass Index (BMI): 31.0 Surgical Procedure: Operation Date: 12/09/21 13:40 Proposed Procedure Side Surgeon p Ankle Achilles Tendon Debridement Left Kodak Shah MD Meds Allergies and Home Medications Allergies Allergy/AdvReac Type Severity Reaction Status Date / Time gabapentin Allergy Severe coughing, Verified 12/09/21 10:56 swallowing issues, tongue swelling bacitracin Allergy Intermediate Skin Rash Verified 12/09/21 10:56 Sulfa (Sulfonamide Allergy RASH, Verified 12/09/21 10:56 Antibiotics) DIFFICULTY BREATHING atorvastatin [From Lipitor] AdvReac Severe coughing Verified 12/09/21 10:56 tramadol AdvReac rash from Verified 12/09/21 10:56 head to toe Home Medication Medication Instructions Recorded [Left] knee medial fitness center attendant brace #1 ea 11/30/19 rosuvastatin 5 mg tablet 5 mg PO DAILY #90 tab 02/05/20 acetaminophen 500 mg tablet 1,000 mg PO PRN PRN 03/19/20 lactobacillus combination no.9 4 4,000 mmu cells PO DAILY 06/14/20 billion cell capsule (Adult 50 Plus Probiotic) losartan 25 mg tablet 25 mg PO DAILY #90 tab-cap 01/02/21 calcium citrate 250 mg 1 tab PO DAILY 12/09/21 calcium-vitamin D3 5 mcg (200 unit) tablet Current Visit Medications: Current Medications Generic Name Dose Route Start Last Admin Trade Name Freq PRN Reason Stop Dose Admin Acetaminophen 1,000 mg 12/09/21 06:00 12/09/21 11:11 Acetaminophen 500 Mg Tab PO 12/09/21 23:59 1,000 mg PREOP ALEYDA Administration Celecoxib 400 mg 12/09/21 06:00 12/09/21 11:11 Celecoxib 200 Mg Cap PO 12/09/21 23:59 400 mg PREOP ALEYDA Administration Ringer's Solution 1,000 mls @ 80 mls/hr 12/09/21 06:00 IV 01/01/22 23:59 INFUSION ALEYDA Cefazolin Sodium/Dextrose 2 gm in 50 mls @ 100 mls/hr 12/09/21 06:00 Ancef Duplex IVPB 12/09/21 23:59 PREOP ALEYDA IV Miscellaneous Supplies 1 each 12/09/21 06:00 Iv Access IV 01/01/22 23:59 DIRECTED ALEYDA Sodium Chloride 0 ml 12/09/21 06:00 Normal Saline Flush 10 Ml Syr IV 01/01/22 23:59 PRN PRN Sodium Chloride 0 ml 12/09/21 06:00 Normal Saline 10 Ml Vial IJ 01/01/22 23:59 DIRECTED PRN Sterile Water 0 ml 12/09/21 06:00 Water,Injection,Sterile 10 Ml Vial IJ 01/01/22 23:59 DIRECTED PRN PFSH Active Problems Active Problems: Problem Status Onset Code 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 She has no particular symptoms today. Reasonable to recheck it in about 6 months. If it remains elevated at that time, we can consider checking a bone isoenzyme. 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) Right shoulder pain Tendonitis of shoulder, right Tobacco abuse (06/05/14) Surgical History Surgical History Colonoscopy - MAC (06/24/18) Dr Heath, results - diverticulitis, repeat 10 years H/O colectomy History of total left knee replacement (02/13/20) S/P laparoscopic-assisted sigmoidectomy S/P left knee arthroscopy Status post excisional biopsy Left eye (skin lesion) Tobacco Smoking/Tobacco Use Status: Current-Occasional Tobacco Type: cigarettes Alcohol Alcohol Intake: current Alcohol intake frequency: a few times a week Alcohol type: beer and wine Substance Use Substance use: Never Substance use type: does not use Prental History History 2 Para 2 Hx # Term Pregnancies Multiple births Hx # Pregnancies Ectopic pregnancies AB induced Hx Number of Living Children AB spontaneous Vital Signs and Lab Results Vital Signs Most Recent Vital Signs in EMR: Most Recent Vital Signs Temp Pulse Resp BP Pulse Ox 36.7 C 72 18 133/89 99 12/09/21 10:48 12/09/21 10:48 12/09/21 10:48 12/09/21 10:48 12/09/21 10:48 Lab Results Blood Type / Crossmatch: No Data to Display Complete Blood Count: No Data to Display Complete Metabolic Panel: No Data to Display Liver Function Panel: No Data to Display Coagulation Panel: No Data to Display Cardiac Panel: No Data to Display Arterial Blood Gas: No Data to Display Venous Blood Gas: No Data to Display Pancreas Panel: No Data to Display Thyroid Panel: No Data to Display Infectious Disease: Coronavirus (COVID-19)(PCR) Negative (Negative) 12/08/21 08:27 12/08/21 Coronavirus 2019 Source Nasal/Nares 12/08/21 08:27 12/08/21 Blood Cultures: No Data to Display Toxicology Panel: No Data to Display Anesthesia Assessment and Plan Anesthesia History Personal History: No History of Anesthesia Complications Family History: No Family History of Anesthesia Complications Exercise Tolerance Exercise Tolerance: Metabolic Equivalents>4 Pertinent Negatives Pertinent Negatives: No Major Cardiovascular Symptoms or Complaints and No Major Pulmonary Symptoms or Complaints Cardiac & Pulmonary Exam Cardiac Exam: Normal S1/S2 Heart Sounds Pulmonary Exam: Clear Bilateral Breath Sounds Implantable Cardiac Device Does patient have a Pacemaker or an ICD?: No Airway Exam Known Difficult Airway: No Mallampati Class: 3 Mouth Opening: Narrow (< 3cm) Thyromental Distance: Greater than 3 cm Neck Range of Motion: Full ROM Neck Circumference: Normal Teeth Condition: Normal Dentition ASA Classification ASA Score: ASA 2 Emergency Case?: No NPO Status NPO Status: NPO Clears >2 hours, Solids >8 hours Anesthesia Plan Resuscitation Status: Full Code Anesthesia Technique: Spinal Anesthesia Airway Planned: Natural Airway Monitors Used: Standard Monitors
[2021-12-09] MEDS: Lactated Ringers 1,000 ML 80 ML IV (11:39)
[2021-12-09] MEDS: ceFAZolin 2 GM/50 ML BAG IVPB (12:31)
[2021-12-09] MEDS: Bupivacaine LIPOSOME/PF 133 MG/10 ML VIAL IJ (12:56)
[2021-12-09] MEDS: Bupivacaine 0.25% Pres-Free 30 ML VIAL (12:57)
--- NOTE | 2021-12-09 14:20 | PDOC.DSDIS_ITS ---
Discharge Plan Disposition Patient Disposition: HOME Condition: Good Discharge Details Reason For Visit: Left achilles tendinopathy Attending Provider: Kodak Shah Primary Care Provider: Sissy Belcher Home Meds and New Rx's Prescriptions: New acetaminophen 500 mg tablet 500 mg PO Q6H PRN (Reason: pain) Qty: 60 2RF ibuprofen 600 mg tablet 600 mg PO TID PRN (Reason: pain) Qty: 60 0RF oxycodone 5 mg tablet 5 mg PO Q6H PRN (Reason: severe post-operative pain) Qty: 12 0RF Rx Instructions: Take one tablet up to every 6 hours as needed for severe pain Continued Adult 50 Plus Probiotic 4 billion cell capsule 4,000 mmu cells PO DAILY 0RF Rx Instructions: administer with a meal (DME) [Left] knee medial director of marketing and promotions brace Qty: 1 0RF Rx Instructions: Use during weight bearing activities rosuvastatin 5 mg tablet 5 mg PO DAILY Qty: 90 3RF losartan 25 mg tablet 25 mg PO DAILY Qty: 90 3RF calcium citrate-vitamin D3 250 mg-5 mcg (200 unit) Tablet 1 tab PO DAILY 0RF Discontinued acetaminophen 500 mg tablet 1,000 mg PO PRN PRN (Reason: pain) 0RF Discharge Instructions Additional Instructions: Left Achilles Tendon Debridement Discharge Instructions Activity: You are NON WEIGHT BEARING. You should keep the leg elevated as much as possible. You may wiggle your toes and move your hip and knee. Dressings: You should keep your splint clean and dry. Do NOT get wet or dirty. If you have issues with your splint, please call the office at [phone] or the hospital after hours. Medications: - You should take Tylenol and Ibuprofen around the clock for baseline pain. - You have been prescribed a stronger narcotic for breakthrough pain. - You should take a Baby Aspirin (81mg) twice a day for blood clot prevention. Follow-up: 2 weeks Referrals: Kodak Shah MD [ [facility] STAFF PHYSICIAN] - Equipment/Supplies: Non-Weight Bearing Crutches and Splint Remove Dressings/Wound Care:: Do Not Remove Shower/Bathe:: Cover Diet:: As Tolerated Discharge Orders Discharge Orders: Discharge Order (Routine); Ordered 12/09/21 Ordered By: Mariana Khan
--- NOTE | 2021-12-09 15:16 | W.ANESPOSTOP ---
Postoperative Evaluation Date, Time and Location Date Performed: 12/09/21 Time Performed: 15:16 Patient Location: Day Surgery Unit Vital Signs Most Recent Imported Vital Signs: Most Recent Vital Signs Temp Pulse Resp BP Pulse Ox 36.4 C L 54 L 18 128/79 100 12/09/21 14:55 12/09/21 14:55 12/09/21 14:55 12/09/21 14:55 12/09/21 14:55 Pain Score Most Recent Pain Score: Most Recent Pain Score Pain Level 0 12/09/21 14:55 Assessment Mental Status: Awake (Alert & Oriented to Patient Baseline) Airway and Respiratory Function: Patent airway with normal (patient baseline) respiratory exam Cardiovascular Function: Hemodynamically Stable Hydration Status: Adequately Hydrated Nausea & Vomiting: No Nausea or Vomiting Pain: Pt. Denies Any Pain Peripheral Nerve Block: Patient did not receive a nerve block
--- NOTE | 2021-12-09 20:52 | ROE_ITS ---
Date of service: 12/09/21 Time of Service: 13:40 Operative Note Operative Note DATE OF PROCEDURE: 12/09/21 PRE-OP DIAGNOSIS: Insertional Calcific Tendinitis of Achilles Tendon - Left POST-OP DIAGNOSIS: same PROCEDURE: Left Achilles Debridement with Brain Resection and Achilles Repair SURGEON: Kodak Shah DIRECTOR OF FINANCIAL REPORTING: Mariana Khan ANESTHESIA TYPE: Spinal Refer to Anesthesia Record ESTIMATED BLOOD LOSS: 20 PATHOLOGY: none sent TOURNIQUET TIME: 0 COMPLICATIONS: None Patient was transported to: PACU Indications: Debora is a 60 year old female who has had persistent pain about the heel. Clinical evaluation and x-rays demonstrated clear calcific tendinitis of the Achilles insertion. Debora has failed a host of conservative options but continues to have pain and difficulty with shoe wear. Therefore, I offered operative intervention in the form of Achilles debridement, bony prominence resection, and Achilles tendon repair as indicated. I reviewed the risk of the procedure to include bleeding, infection, pain, stiffness, damage to nerves and vessels, weakness, Achilles rerupture or retear, wound healing complications. Despite these risk,she elected to proceed. Findings: There were notable calcific prominence of the calcaneal tuberosity which were resected and the calcaneus smooth and Achilles repaired back down to the calcaneus. Procedure Description: Debora was greeted in the preoperative holding area. Identity was confirmed the correct side was identified and marked. Consent was reviewed the patient and signed. History of physical was updated. She was taken to the operating room. A spinal anesthetic was administered and then the patient was placed into the prone position. Chest rolls were placed to well-padded the chest and allow for chest expansion. The arms were placed in the 90-90 position with all bony prominences well-padded. There was gel pad placed underneath the knees and a prone ramp was placed underneath the operative leg. No tourniquet was used. Prophylactic antibiotics in the form of Cefazolin were given. A timeout was performed for safe surgery. A midline incision was then made overlying the Achilles tendon and its insertion on the calcaneus. This incision was taken down all the way to the peritenon of the Achilles tendon and its insertion on the calcaneus. Full-thickness flaps were then elevated medially and laterally to better expose Achilles tendon and i ts insertion. A midline incision was then made within the Achilles tendon. The tendon was elevated off of the calcaneus medially and laterally leaving some bands at the far reaches for later tensioning of the Achilles tendon. Calcific deposits from in the tendon were then removed sharply. Prominences over the calcaneal tuberosity were also removed with a rongeur. I took a small oscillating saw to then resect any Brain deformity. This was checked by dorsiflexing the foot and inspecting for any impingement of the calcaneal prominence onto the Achilles tendon I also used a chisel to chamfer the medial lateral prominences of the calcaneal tuberosity as well. Once this was completed I then inspected the calcaneal insertion for any remnant sharp prominences or calcifications. A rasp was also used to smooth this down fully until there is no prominence projecting either posteriorly, medially, laterally. I made sure that the left attachments of the Achilles tendon to help guide the repair. I then placed two 5.0 mm Mitek Fastin anchor into the superior margin of the calcaneal tuberosity. I placed a locking Krak?w type suture into each side of the Achilles tendon with 1 limb of the suture from the anchor. The extra limb of the suture was then passed through the tendon wants to serve as a arnold. Once these both were passed I was able to shuttle the tendon back down to the b one by pulling on the free limb of the suture. The sutures were then tied which reapproximated the Achilles tendon down to the tuberosity quite nicely. Using the tails of the suture as well as the remnant tails from the previously tied sutures, I incorporated these into two Mitek Healix 4.75 mm knotless anchor. This reapproximated the tendon over the entire footprint of the calcaneus. The suture limbs were then cut. The periphery of the Achilles tendon slit was inspected and any residual split of the tendon was reapproximated. The wounds and thoroughly irrigated. The deep tissues were anesthetized with 0.25% bupivacaine and Exparal. The deep tissue was closed with 3-0 Vicryl followed by a 4-0 nylon. Xeroform, 4 x 4, ABD, web roll was applied to the foot in a short leg splint was placed. The patient was then placed into the supine position. There is no notable complications from the prone positioning of the surgery. Debora was then transitioned back to the hospital stretcher in a stable condition. The procedure was tolerated well and the patient was transferred back to the PACU in stable condition.
== END 2021-12-09 16:15 | disposition home or self-care (01) ==
PROVIDERS: PCP Nurse Practitioner Family; Visit Provider Student in an Organized Health Care Education/Training Program
PROC: (CPT 11043; principal; 2021-12-09 13:30)
DX: M76.62 Achilles tendinitis, left leg (principal); I10 Essential (primary) hypertension
CPT/HCPCS: 27650; 28119; C1713; J0690; J2001; J2250; J2370; J2405

== ENCOUNTER 2022-02-20 02:20 | Outpatient (CLI) | payer OTHER, SELFPAY ==
[2022-02-20 09:03] LABS: Anion Gap 11.7 mmol/L (3-11); BUN 17 mg/dL (7-18); CO2 24.3 mmol/L (21.0-32.0); CREATININE 0.8 mg/dL (0.55-1.02); Calcium 8.6 mg/dL (8.5-10.1); Calculated LDL 58 mg/dL (<100); Chloride 106 mmol/L (98-107); Cholesterol 169 mg/dL (<200); Glucose 106 mg/dL (74-106); HDL Cholesterol 42 mg/dL (40-60); Potassium 4.5 mmol/L (3.5-5.1); Sodium 142 mmol/L (136-145); Triglyceride 345 mg/dL (<150)
== END 2022-02-20 02:21 | disposition home or self-care (01) ==
LOC: LBO 02:20
PROVIDERS: PCP Nurse Practitioner Family; Visit Provider Nurse Practitioner Family
DX: I10 Essential (primary) hypertension (principal); E78.5 Hyperlipidemia, unspecified
CPT/HCPCS: 36415; 80048; 80061

== ENCOUNTER 2022-10-26 15:00 | Outpatient (REF) | payer OTHER, SELFPAY | END 2022-10-26 15:01 | disposition home or self-care (01) | LOC: LBN 15:00 | PROVIDERS: PCP Nurse Practitioner Family; Visit Provider Nurse Practitioner Women's Health | DX: R30.0 Dysuria (principal) | CPT/HCPCS: 87086 ==

== ENCOUNTER 2022-10-29 06:40 | Emergency (ER) | payer OTHER, SELFPAY ==
[2022-10-29] VITALS (15 sets, daily range): BP systolic 117–135; BP diastolic 68–81; PULSE 67–96; RESP 16–18; TEMP 36–36.6; O2SAT 93–100
--- NOTE | 2022-10-29 06:46 | ED.GENADUL_ITS ---
Discharge Plan Discharge Details Chief Complaint: Urinary Primary Care Provider: Sissy Belcher ED Provider: Ashley Dominguez Home Meds and New Rx's Prescriptions: No Action Adult 50 Plus Probiotic 4 billion cell capsule 4,000 mmu cells PO DAILY Rx Instructions: administer with a meal nitrofurantoin monohyd/m-cryst [Macrobid] 100 mg capsule 100 mg PO Q12H 5 Days Qty: 10 0RF Rx Instructions: must administer with a meal/food (DME) [Left] knee medial forming machine upkeep mechanic helper brace Qty: 1 0RF Rx Instructions: Use during weight bearing activities rosuvastatin 5 mg tablet 5 mg PO DAILY Qty: 90 3RF losartan 25 mg tablet 25 mg PO DAILY Qty: 90 3RF calcium citrate-vitamin D3 250 mg-5 mcg (200 unit) Tablet 1 tab PO DAILY acetaminophen 500 mg tablet 500 mg PO Q6H PRN (Reason: pain) Qty: 60 2RF ibuprofen 600 mg tablet 600 mg PO TID PRN (Reason: pain) Qty: 60 0RF Medical Decision Making 0700 -- 61-year-old female with a history of hyperlipidemia, diverticulitis, basal cell carcinoma, chronic tobacco smoker, and sigmoidectomy in 2019 secondary to recurrent diverticulitis presents for abdominal and back pain, worse on the left side for the past 2 days. Review of records notes that patient was seen at her [facility] for routine visit and complained of dysuria and had leukocytes in her urine dip and started on Macrobid. Urine culture from that visit notes less than 10,000 colonies of gram-negative rods. Patient states her dysuria has improved on the Macrobid. She states most of her diffuse abdomen and back pain has improved and is now mainly in the left lower quadrant. Patient appears uncomfortable. She is mostly pacing around the room. She appears uncomfortable with lying fully supine. Her abdomen is soft that is quite tender in the left lower quadrant. She has no CVA tenderness. No rigidity or guarding or peritoneal signs. Differential diagnosis includes recurrent diverticulitis, pyelonephritis, kidney stone, small bowel obstruction. We will place an IV, bolus IV fluids, screening labs, urinalysis, CT abdomen and pelvis with p.o. and IV contrast and give IV Tylenol, IV Zofran and reassess. 0800 -- Case endorsed to Dr. Sosa to follow-up on labs and imaging and final disposition. HPI General Mode of arrival: ambulatory . Date/Time Provider Initiated Documentation: 10/29/22 06:44 . Limitations to Documentation: no limitations . Information obtained by: patient . HPI Narrative: Patient is a 61-year-old female with a history of hyperlipidemia, diverticulitis, basal cell carcinoma, chronic tobacco smoker and history of sigmoidectomy secondary to recurrent diverticulitis who presents for abdominal and back pain for the past 2 days, now worse on the left side. Patient states she was seen at her [facility] office for a routine gynecological exam 3 days ago and had complained of dysuria at that time and was noted to have leukocytes and blood in her urine and was started on Macrobid. Patient states her dysuria has improved. She states 2 days ago she noted left side pain which then progressed to involve her entire abdomen and entire back. She states most of the abdomen and back pain has improved but now is mainly in the left lower quadrant. She describes the pain as cramping and worse if she tries to stand upright. Patient has not taken any medication for pain and has only taken her antibiotic. She admits to chills all day yesterday but did not take her temperature. She admits to nausea this morning but denies any vomiting. She states her last bowel movement was yesterday and within normal limits. She denies any known fever. Related Data Home Medications Medication Instructions Recorded Confirmed [Left] knee medial forming machine upkeep mechanic helper brace #1 ea 11/30/19 10/29/22 rosuvastatin 5 mg tablet 5 mg PO DAILY #90 tabs 02/05/20 10/29/22 lactobacillus combination no.9 4 4,000 mmu cells PO DAILY 06/14/20 10/29/22 billion cell capsule (Adult 50 Plus Probiotic) losartan 25 mg tablet 25 mg PO DAILY #90 tab-caps 01/02/21 10/29/22 acetaminophen 500 mg tablet 500 mg PO Q6H PRN pain #60 tabs 12/09/21 10/29/22 calcium citrate 250 mg 1 tab PO DAILY 12/09/21 10/29/22 calcium-vitamin D3 5 mcg (200 unit) tablet ibuprofen 600 mg tablet 600 mg PO TID PRN pain #60 tabs 12/09/21 10/29/22 nitrofurantoin 100 mg PO Q12H 5 days #10 caps 10/26/22 10/29/22 monohydrate/macrocrystals 100 mg capsule (Macrobid) Previous Rx's Medication Instructions Recorded [Left] knee medial forming machine upkeep mechanic helper brace #1 ea 11/30/19 rosuvastatin 5 mg tablet 5 mg PO DAILY #90 tabs 02/05/20 losartan 25 mg tablet 25 mg PO DAILY #90 tab-caps 01/02/21 acetaminophen 500 mg tablet 500 mg PO Q6H PRN pain #60 tabs 12/09/21 ibuprofen 600 mg tablet 600 mg PO TID PRN pain #60 tabs 12/09/21 nitrofurantoin 100 mg PO Q12H 5 days #10 caps 10/26/22 monohydrate/macrocrystals 100 mg capsule (Macrobid) Allergies Allergy/AdvReac Type Severity Reaction Status Date / Time gabapentin Allergy Severe coughing, Verified 10/29/22 06:54 swallowing issues, tongue swelling bacitracin Allergy Intermediate Skin Rash Verified 10/29/22 06:54 Sulfa (Sulfonamide Allergy RASH, Verified 10/29/22 06:54 Antibiotics) DIFFICULTY BREATHING atorvastatin [From Lipitor] AdvReac Severe coughing Verified 10/29/22 06:54 tramadol AdvReac rash from Verified 10/29/22 06:54 head to toe General Stated Complaint: Urinary JEAN PAUL: 3 Review of Systems All systems reviewed & are unremarkable except as noted in HPI and below Constitutional Constitutional: Reports as per HPI, Denies chills and Denies fever(s) Eyes Eyes: Denies blurry vision ENT Ears, Nose, Mouth, and Throat: Denies dizziness, Denies sore throat and Denies throat swelling Cardiovascular Cardiovascular: Denies chest pain and Denies dyspnea Respiratory Respiratory: Denies cough and Denies dyspnea Gastrointestinal Gastrointestinal: Reports abdominal pain, Denies diarrhea, Reports nausea and Denies vomiting Genitourinary Genitourinary: Denies hematuria, Denies dysuria and Reports flank pain Musculoskeletal Musculoskeletal: Reports back pain and Denies numbness Integumentary/Breasts Skin/Breast: Denies lesions and Denies rash Neurologic Neurologic: Denies dizziness, Denies localized weakness and Denies numbness Allergic/Immunologic Allergic/Immunologic: Denies throat swelling PFSH All Active Problems Insertional Achilles tendinopathy (Acute) S/P Debridement: 12/09/2021 Sensorineural hearing loss (SNHL) of left ear with restricted hearing of right ear (Acute) Tinnitus (Acute) bilateral high-pitched continuous nonpulsatile. Symmetric normal hearing. Hypertension (Acute) Rash in adult (Acute) Medical History Arthritis of left knee Basal cell carcinoma (12/16/15) left lower eyelid Diverticulitis of large intestine without perforation or abscess with bleeding (04/20/18) Elevated alkaline phosphatase measurement Unclear if there is any clinical significance to the persistently elevated alkaline phosphatase. She has no particular symptoms today. Reasonable to recheck it in about 6 months. If it remains elevated at that time, we can consider checking a bone isoenzyme. 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) Right shoulder pain Tendonitis of shoulder, right Tobacco abuse (06/05/14) Surgical History Colonoscopy - MAC (06/24/18) Dr Heath, results - diverticulitis, repeat 10 years H/O colectomy History of total left knee replacement (02/13/20) S/P laparoscopic-assisted sigmoidectomy S/P left knee arthroscopy Status post excisional biopsy Left eye (skin lesion) Family History Mother Diabetes Stroke Hypertension Father Lymphoma Brother Myocardial infarction Brother Brain tumor Social History Smoking/Tobacco Use Status: Current-Occasional Tobacco Type: cigarettes Tobacco: How many years used: 20 Smoking risk assessment performed?: Yes Alcohol Intake: current Alcohol Intake frequency: a few times a week Alcohol type: beer and wine Drug use: Never Substance use type: does not use Household members: none Housing: house Number of Children: 2 current occupation: [employer] Current gender identity: female What is your relationship status?: Panel score (0-1 are the most socially isolated patients): 0 What type of physical activity do you participate in: regular exercise and other Details: physically active daily Seatbelt use: always Drive 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 Working smoke detector in home: Yes Fire extinguisher in home: Yes Carbon monox detector in home: Yes Do you feel safe at home: Yes (Lives alone) Do you feel safe in your relationship?: Yes Female Reproductive History Menstrual Menopause type: natural (2013) History History 2 Para 2 Hx # Term Pregnancies Multiple births Hx # Pregnancies Ectopic pregnancies AB induced Hx Number of Living Children AB spontaneous Exam Const General: cooperative and uncomfortable Orientation: alert, awake and oriented x3 HENMT Head: normal to inspection Face and sinus: normal facial exam Eyes General: appearance normal, both eyes and all related structures Pupils: PERRL EOM: EOM intact bilaterally Neck Neck: normal visual inspection and No submandibular swelling Lymphatic: no lymphadenopathy noted Chest Chest: normal inspection of the chest and no tenderness Resp Effort & Inspection: normal respiratory effort and able to speak in complete sentences Auscultation: clear to auscultation bilaterally Cardio Rate: regular rate Rhythm: regular rhythm GI Inspection: normal to inspection Palpation: soft, not firm, not rigid and tender in the LLQ Auscultation: hypoactive bowel sounds Back/Spine/Pelvis Back: no CVA tenderness Thoracic/Lumbar Spine: thoracic and lumbar spine normal to inspection Skin General skin exam: no rashes or lesions noted Neuro General: patient alert, patient awake, patient oriented x3 and moves all extremities Cognition: normal cognition Speech: speech normal Motor: muscle tone normal throughout Sensory Exam: no sensory deficits noted Extrem General: normal to inspection and full ROM Psych Appearance: grossly normal Mental Status: mental status grossly normal Speech and Movement: speech and movement normal Affect: normal affect
[2022-10-29 06:56] LABS: Bilirubin Negative (Negative); Blood Small (Negative); Clarity Sl Cloudy (Clear); Glucose Negative (Negative); Ketones Negative (Negative); Leukocyte Esterase Negative (Negative); Nitrite Negative (Negative); Specific Gravity >= 1.030 (1.005-1.025); Urobilinogen 0.2 EU/dL (Up TO 0.2); pH 5.5 (5-8)
--- NOTE | 2022-10-29 07:00 | DI.CT_ITS ---
Exam(s) CT ABDOMEN PELVIS W EXAM: CT ABDOMEN PELVIS W CLINICAL HISTORY: diffuse abd pain,tender LLQ,h/o sigmoidectomy. TECHNIQUE: Imaging Protocol: Axial computed tomography images with coronal and sagittal reformatted images were created and reviewed CONTRAST MATERIAL: Intravenous: Omnipaque-350 100cc Oral: Yes. Oral contrast was administered for bowel opacification. COMPARISON: CT CT ABDOMEN PELVIS W from 04/19/2020 FINDINGS: VISUALIZED LUNG BASES: No confluent infiltrates nor pleural effusions. No significant incidental nod ules.. ABDOMEN: There is no ascites. LIVER: There are no focal hepatic lesions evident. No dilated intrahepatic ducts. GALLBLADDER/BILIARY: No obvious gallbladder pathology. CBD is not dilated. PANCREAS: No evidence of pancreatic mass nor dilatation of the pancreatic duct. SPLEEN: Spleen is not enlarged. No obvious intrasplenic lesions. Splenic and portal veins are paten t. ADRENALS: There is continued stability in the size and appearance of the previously described left ad renal nodule. This measures 2 x 1.5 cm. The opposite-right adrenal gland remains unremarkable. KIDNEYS:No cysts evident. No solid renal masses. No calculi nor hydronephrosis.. ABDOMINAL AORTA: Abdominal aorta is not enlarged. LYMPH NODES:There is no retroperitoneal nor paraaortic adenopathy. ABDOMINAL WALL: No evidence of significant anterior abdominal wall nor inguinal hernia. GI: No bowel obstruction. PELVIS: GI: No evidence of appendicitis.There has been interval partial sigmoid resection since the prior CT scan. However, there is now evidence of acute diverticulitis. Phlegmonous. No abscess at this time . No free fluid. LYMPH NODES: There is no intrapelvic nor inguinal adenopathy. REPRODUCTIVE: Uterus and adnexal regions unremarkable. URINARY BLADDER: No calculi nor obvious masses evident OSSEOUS: No fractures and no significant osseous lesions. IMPRESSION: 1. Compared to the prior CT scan of April 2020 there has been interval partial sigmoid resection. How ever, there is now evidence of recurrent acute sigmoid diverticulitis. This predominately involves a few contiguous diverticuli on the superior aspect of the sigmoid few cm above the surgical anastomos is. There is no obstruction at this level at this time. Findings are phlegmonous. Significant risk for developing abscess here. There is no gas within the portal venous system. No abnormal gas in t he urinary bladder. No abscess in the liver. 2. Stable left adrenal nodule again noted, unchanged in size, measuring 2 x 1.5 cm, unchanged. Report called by myself to ER physician. RADIATION DOSE DELIVERED: 942.91mGy.cm Total DLP DATA REPOSITORY: All CT scans at this facility are submitted to the National Radiology Data Registry (NRDR) Dose Index Registry (DIR) with the [employer] (ACR). RADIATION OPTIMIZATION: All CT scans at this facility use at least one of these dose optimization te chniques: automated exposure control; mA and/or kV adjustment per patient size (includes targeted exa ms where dose is matched to clinical indication); or iterative reconstruction.
[2022-10-29 07:10] LABS: Bacteria Moderate HPF (Negative); C & S Indicated? No/Sq. Contamination; Casts Negative LPF (Negative); Crystals Negative HPF (Negative); Epithelial Cells Moderate HPF (Negative); Mucus Moderate (Negative); WBC Negative HPF (0-5)
[2022-10-29 07:32] LABS: Abs Immature Grans 0.05 10^3/uL (0.0-0.06); Absolute Basophil Count 0.04 10^3/uL (0.0-0.2); Absolute Lymphocyte Count 1.58 10^3/uL (1.2-3.4); Absolute Monocyte Count 1.43 10^3/uL (0.1-0.8); Basophils % 0.3; Eosinophils % 0.4; HCT 42.6 % (36.0-46.0); HGB 14.3 g/dL (11.2-15.7); Immature Grans % 0.4; Lymphocytes % 11.2; MCH 30.6 pg (27.0-33.0); MCHC 33.6 % (32.0-36.0); MCV 91 fL (80-95); MPV 10.4 fL (8.0-11.0); Monocytes % 10.1; Neutrophils % 77.6; Platelet Count 251 10^3/uL (130-400); RBC 4.67 10^6/uL (3.93-5.22); RDW 12.2 % (11.7-14.6); RDW-SD 40.7 fL; WBC 14.15 10^3/uL (4.4-10.8)
[2022-10-29 07:34] LABS: Absolute Eosinophil Count 0.06 10^3/uL (0.0-0.7); Absolute Neutrophil Count 10.98 10^3/uL (1.2-6.7)
[2022-10-29] MEDS: Normal Saline 1,000 ML 1000 ML IV (07:40)
[2022-10-29] MEDS: Ondansetron 4 MG/2 ML VIAL IVP (07:48)
[2022-10-29] MEDS: ACETAMINOPHEN 1,000 MG/100 ML BTL 400 MG IVPB (07:51)
[2022-10-29 07:54] LABS: ALT 49 U/L (14-59); AST 31 U/L (15-37); Albumin 4.1 g/dL (3.4-5.0); Alkaline Phosphatase 149 U/L (46-116); Anion Gap 8.1 mmol/L (3-11); BUN 12 mg/dL (7-18); Bilirubin, Total 0.8 mg/dL (0.2-1.0); CO2 25.9 mmol/L (21.0-32.0); CREATININE 0.8 mg/dL (0.55-1.02); Calcium 9.2 mg/dL (8.5-10.1); Chloride 101 mmol/L (98-107); Estimated GFR 84.82 (mL/min/1.73m2); Glucose 116 mg/dL (74-106); Lipase 26 U/L (73-393); Potassium 4.1 mmol/L (3.5-5.1); Sodium 135 mmol/L (136-145); Total Protein 8.2 g/dL (6.4-8.2)
[2022-10-29 08:59] LABS: Bilirubin Negative (Negative); Blood Trace-lysed (Negative); Clarity Clear (Clear); Glucose Negative (Negative); Ketones Negative (Negative); Leukocyte Esterase Negative (Negative); Nitrite Negative (Negative); Specific Gravity <= 1.005 (1.005-1.025); Urobilinogen 0.2 EU/dL (Up TO 0.2); pH 5.5 (5-8)
[2022-10-29 09:30] LABS: Bacteria Negative HPF (Negative); C & S Indicated? No; Casts Negative LPF (Negative); Crystals Negative HPF (Negative); Epithelial Cells Rare HPF (Negative); Mucus Negative (Negative); RBC 0-2 HPF (0-2); WBC Negative HPF (0-5)
[2022-10-29] MEDS: Normal Saline - Diluent 50 ML VIAL IV (10:38)
[2022-10-29] MEDS: Omnipaque 350 MG/ML 500 ML BTL-Imaging package 100 ML IJ (10:40)
--- NOTE | 2022-10-29 12:14 | ED.PROG_ITS ---
Date of service: 10/29/22 Time of Service: 12:14 Medical Decision Making Care signed out by Dr. Dominguez, please see her documentation regarding initial ED presentation course, plan at signout to follow-up on CT of the abdomen pelvis and reassess patient for disposition. CT of the abdomen pelvis was interpreted by radiology: IMPRESSION: 1. Compared to the prior CT scan of April 2020 there has been interval partial sigmoid resection.? However, there is now evidence of recurrent acute sigmoid diverticulitis.? This predominately involves a few contiguous diverticuli on the superior aspect of the sigmoid few cm above the surgical anastomosis.? There is no obstruction at this level at this time.? Findings are phlegmonous.? Significant risk for developing abscess here.? There is no gas within the portal venous system.? No abnormal gas in the urinary bladder.? No abscess in the liver. 2. Stable left adrenal nodule again noted, unchanged in size, measuring 2 x 1.5 cm, unchanged. I consulted Dr. De La Garza, on-call general surgeon, discussed ED presentation and course including prior history. She reviewed the CT imaging and recommends outpatient follow-up in surgical clinic. She agrees with plan for initiation of antibiotic treatment ceftriaxone and Augmentin. Patient was given initial treatment ceftriaxone 2 g IV and then will continue prescription of Augmentin. Sign Out Sign Out Data: Sign Out Comment: Follow-up on labs and imaging and final disposition. Last updated by Ashley Dominguez DO at 10/29/22 08:11 Discharge Plan Disposition Patient Disposition: Home Condition: Stable Discharge Details Clinical Impression: Acute diverticulitis Primary Care Provider: Sissy Belcher ED Provider: Gideon Sosa Home Meds and New Rx's Prescriptions: New amoxicillin 875 mg tablet 875 mg PO TID Qty: 40 0RF Continued Adult 50 Plus Probiotic 4 billion cell capsule 4,000 mmu cells PO DAILY Rx Instructions: administer with a meal (DME) [Left] knee medial cyber transport systems specialist brace Qty: 1 0RF Rx Instructions: Use during weight bearing activities rosuvastatin 5 mg tablet 5 mg PO DAILY Qty: 90 3RF losartan 25 mg tablet 25 mg PO DAILY Qty: 90 3RF calcium citrate-vitamin D3 250 mg-5 mcg (200 unit) Tablet 1 tab PO DAILY acetaminophen 500 mg tablet 500 mg PO Q6H PRN (Reason: pain) Qty: 60 2RF ibuprofen 600 mg tablet 600 mg PO TID PRN (Reason: pain) Qty: 60 0RF Discontinued nitrofurantoin monohyd/m-cryst [Macrobid] 100 mg capsule 100 mg PO Q12H 5 Days Qty: 10 0RF Rx Instructions: must administer with a meal/food Discharge Instructions Instructions: Diverticulitis (ED) Additional Instructions: Please follow-up with Dr. Murray. Call tomorrow to schedule follow-up appointment. Take full course of antibiotic as prescribed. Please contact your primary care physician to arrange follow-up. Return to the ER immediately for any worsening or new concerning symptoms. Stand Alone Forms: Work Release Referrals: Sissy Belcher [Primary Care Provider] - Mariana Castro DO [OSTEOPATHIC DOCTOR] -
[2022-10-29] MEDS: cefTRIAXone 2 GM/50 ML BAG IVPB (12:24)
[2022-10-29] MEDS: metroNIDAZOLE 500 MG TAB PO (12:26)
== END 2022-10-29 13:20 | disposition home or self-care (01) ==
PROVIDERS: Physician Assistant; Emergency Provider Student in an Organized Health Care Education/Training Program; PCP Nurse Practitioner Family
DX: K57.92 Diverticulitis of intestine, part unspecified, without perforation or abscess without bleeding (principal); Z90.49 Acquired absence of other specified parts of digestive tract
CPT/HCPCS: 80053; 83690; 96361; 96365; 96367; 96375; 99285; 74177; 81003; 81015; 85025; 99284; J0131; J2405

== ENCOUNTER 2022-11-02 09:33 | Outpatient (REF) | payer OTHER, SELFPAY ==
[2022-11-02 10:29] LABS: Abs Immature Grans 0.03 10^3/uL (0.0-0.06); Absolute Basophil Count 0.04 10^3/uL (0.0-0.2); Absolute Lymphocyte Count 1.57 10^3/uL (1.2-3.4); Absolute Monocyte Count 0.54 10^3/uL (0.1-0.8); Absolute Neutrophil Count 4.85 10^3/uL (1.2-6.7); Basophils % 0.6; Eosinophils % 1.4; HCT 42.7 % (36.0-46.0); HGB 14.6 g/dL (11.2-15.7); Immature Grans % 0.4; MCH 30.4 pg (27.0-33.0); MCHC 34.2 % (32.0-36.0); MCV 89 fL (80-95); MPV 10.4 fL (8.0-11.0); Monocytes % 7.6; Platelet Count 330 10^3/uL (130-400); RDW 11.9 % (11.7-14.6); RDW-SD 38.7 fL; WBC 7.13 10^3/uL (4.4-10.8)
[2022-11-02 10:36] LABS: C-Reactive Protein 1.11 mg/dL (0.0-0.3)
== END 2022-11-02 09:34 | disposition home or self-care (01) ==
LOC: LBN 09:33
PROVIDERS: PCP Nurse Practitioner Family; Visit Provider Surgery
DX: K57.92 Diverticulitis of intestine, part unspecified, without perforation or abscess without bleeding (principal)
CPT/HCPCS: 85025; 86140

== ENCOUNTER 2022-11-09 01:54 | Outpatient (CLI) | payer OTHER, SELFPAY ==
--- NOTE | 2022-11-09 14:45 | DI.MAMMO_ITS ---
Exam(s) MAMMO SCREENING EXAM: MAMMO SCREENING CLINICAL HISTORY: screening z12.39. TECHNIQUE: Bilateral full field digital CC and MLO mammographic images were obtained with 3D tomosyn thesis and utilizing computer aided detection (CAD). COMPARISON: Prior mammograms were reviewed. FINDINGS: There has been no significant change in the appearance and distribution of the fibroglandular tissue. Asymmetric tissue both breast is unchanged from prior studies. There are no new spiculated masses nor malignant appearing microcalcification groups. There is no significant architectural distortion nor skin thickening-retraction. IMPRESSION: No radiographic evidence of malignancy. BI-RADS Category 1 - Negative Breast Density - Category B - Scattered areas of fibroglandular density Breast density Category C or D implies that the patient has dense breast tissue. Dense breast tissue can make it harder to find cancer on a mammogram. Dense breast tissue is also associated with an incr eased risk of breast cancer. This information about the result of the mammogram report was provided to the patient to raise their awareness. Use this report when you speak with the patient about their risks for breast cancer, which includes their family history. At that time, you may recommend additional screening tests (Ultrasoun d or MRI) as these tests may add significant information. A negative radiographic report should not delay biopsy if a dominant or clinically suspicious mass is present. Up to ten percent of cancers are not identified on mammography. A negative report may reinforce clinical impression. Adenosis and dense breasts may obscure an underlying neoplasm. False positive reports average 6 to 10%. Patient will receive a letter notifying them of these results.
== END 2022-11-09 02:14 ==
LOC: DI 01:55
PROVIDERS: PCP Nurse Practitioner Family; Visit Provider Nurse Practitioner Women's Health
DX: Z12.31 Encounter for screening mammogram for malignant neoplasm of breast (principal)
CPT/HCPCS: 77063; 77067

== ENCOUNTER 2023-01-29 05:58 | Day surgery (SDC) | payer OTHER, SELFPAY ==
--- NOTE | 2023-01-28 21:28 | PDOC.DSDIS_ITS ---
Date of service: 01/29/23 Time of Service: 08:15 Discharge Plan Disposition Condition: Good Discharge Details Reason For Visit: colon scope Attending Provider: Mariana Castro Primary Care Provider: Sissy Belcher Home Meds and New Rx's Prescriptions: No Action Adult 50 Plus Probiotic 4 billion cell capsule 4,000 mmu cells PO DAILY Rx Instructions: administer with a meal rosuvastatin 5 mg tablet 5 mg PO DAILY Qty: 90 3RF losartan 25 mg tablet 25 mg PO DAILY Qty: 90 3RF calcium citrate-vitamin D3 250 mg-5 mcg (200 unit) Tablet 1 tab PO DAILY Discharge Instructions Additional Instructions: DSU Colonoscopy Post- Op Instructions Instructions for Everyone who is given An esthesia: For your safety, please do the following for the next twenty-four (24) hours: *Do Not operate a motor vehicle (car, truck, motorcycle, etc.) *Do Not drink alcoholic beverages or use any recreational drugs for the first 24 hours or while taking pain medications. The medications in your body may have a reaction that can be dangerous. *Do Not make any important decisions or sign any important papers. Findings:few scattered diverticula through-out the entirety of the colon Follow up: 2-3 wks in office 1. No lifting over 20 pounds or strenuous activity for the first 24 hours after your procedure. After 24 hours there are no restrictions on your activity but you may feel fatigued for a few days. 2. After you arrive home you may have a light meal and return to your normal diet as you can tolerate it without feeling sick to your stomach. 3. You may have a bloated, gaseous feeling in your belly (abdomen) after a colonoscopy. Passing gas and belching will help. Walking or lying down on your left side with your knees flexed may relieve the discomfort. Call the office at [phone] (Office) or [phone] (Hospital) right away if you notice any of the following: a.Vomiting of blood or ?coffee ground stools?. b.Rectal bleeding 1Tbsp, blood clots or continuous bleeding. c.Severe belly (abdominal) pain. d.A hard distended belly (abdomen) and an inability to pass gas. 4. Please don?t expect to have a normal BM (bowel movement) for 2-3 days after your procedure. 5. If there are questions regarding the findings of your procedure, please contact your doctor 6. If you are unable to contact your doctor with a problem, contact the hospital at [phone]. 7. Continue all your regular medications unless directed otherwise. I understand the above instructions and have no questions. Signature of Patient or Adult Escort Name of Responsible Adult Escort Signature of Nurse Date/Time Activity:: see above Diet:: see above DS: Diagnosis Discharge Diagnosis (1) Diverticula of colon: Status: Acute Asessment and Plan: The patient is seen and examined after their colonoscopy.? The patient has been able to pass gas.? They are not having abdominal pain.? They have been able to tolerate liquids and a snack.? They do not have any nausea or vomiting.? They are not having any chest pain or shortness of breath.??? They are not having any rectal bleeding..? Their vital signs have been stable-see nursing notes. We discussed findings during their colonoscopy, and any biopsies that were done/polyps that were removed. The patient will be sent a letter with any biopsy results, and when to repeat the colonoscopy.-see discharge instructions. Patient was given explicit instructions to follow-up regarding colonoscopy-refer to discharge instructions.? We reviewed resumption of medications. Patient verbalized understanding and discharged in stable and satisfactory condition- See nursing notes.The patient is seen and examined after their colonoscopy.? The patient has been able to pass gas.? They are not having abdominal pain.? They have been able to tolerate liquids and a snack.? They do not have any nausea or vomiting.? They are not having any chest pain or shortness of breath.??? They are not having any rectal bleeding..? Their vital signs have been stable-see nursing notes. We discussed findings during their colonoscopy, and any biopsies that were done/polyps that were removed. The patient will be sent a letter with any biopsy results, and when to repeat the colonoscopy.-see discharge instructions. Patient was given explicit instructions to follow-up regarding colonoscopy-refer to discharge instructions.? We reviewed resumption of medications. Patient verbalized understanding and discharged in stable and satisfactory condition- See nursing notes.
[2023-01-29 06:06] VITALS: BP 122/91; PULSE 76; RESP 16; TEMP 36.8; O2SAT 99
[2023-01-29] MEDS: Lactated Ringers 1,000 ML 80 ML IV (06:49)
--- NOTE | 2023-01-29 07:06 | W.ANESPRE ---
General Info Date of Service Date Performed: 01/29/23 Height: 5 ft 2 in Weight: 75.8 kg Body Mass Index (BMI): 30.5 Surgical Procedure: Operation Date: 01/29/23 07:35 Proposed Procedure Side Surgeon yoseph Castro, Meds Allergies and Home Medications Allergies Allergy/AdvReac Type Severity Reaction Status Date / Time gabapentin Allergy Severe coughing, Verified 01/29/23 06:17 swallowing issues, tongue swelling bacitracin Allergy Intermediate Skin Rash Verified 01/29/23 06:17 Sulfa (Sulfonamide Allergy RASH, Verified 01/29/23 06:17 Antibiotics) DIFFICULTY BREATHING atorvastatin [From Lipitor] AdvReac Severe coughing Verified 01/29/23 06:17 tramadol AdvReac rash from Verified 01/29/23 06:17 head to toe Home Medication Medication Instructions Recorded rosuvastatin 5 mg tablet 5 mg PO DAILY #90 tabs 02/05/20 lactobacillus combination no.9 4 4,000 mmu cells PO DAILY 06/14/20 billion cell capsule (Adult 50 Plus Probiotic) losartan 25 mg tablet 25 mg PO DAILY #90 tab-caps 01/02/21 calcium citrate 250 mg 1 tab PO DAILY 12/09/21 calcium-vitamin D3 5 mcg (200 unit) tablet Current Visit Medications: Current Medications Generic Name Dose Route Start Last Admin Trade Name Freq PRN Reason Stop Dose Admin Hyoscyamine Sulfate 0.125 mg 01/29/23 08:43 Hyoscyamine 0.125 Mg Sl/Oral/Chew SL DIRECTED PRN Ringer's Solution 1,000 mls @ 80 mls/hr 01/29/23 06:00 01/29/23 06:49 IV 02/27/23 23:59 80 mls/hr INFUSION ALEYDA Administration IV Miscellaneous Supplies 1 each 01/29/23 06:00 Iv Access IV 02/27/23 23:59 DIRECTED ALEYDA Ondansetron HCl 4 mg 01/29/23 08:43 Ondansetron 4 Mg/2 Ml Vial IVP Q4H PRN PRN Nausea / Vomiting Sodium Chloride 0 ml 01/29/23 06:00 Normal Saline Flush 10 Ml Syr IV 02/27/23 23:59 PRN PRN Sodium Chloride 0 ml 01/29/23 06:00 Normal Saline 10 Ml Vial IJ 02/27/23 23:59 DIRECTED PRN Sterile Water 0 ml 01/29/23 06:00 Water,Injection,Sterile 10 Ml Vial IJ 02/27/23 23:59 DIRECTED PRN PFSH Active Problems Active Problems: Problem Status Onset Code Diverticula of colon K57.30 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 She has no particular symptoms today. Reasonable to recheck it in about 6 months. If it remains elevated at that time, we can consider checking a bone isoenzyme. 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) Right shoulder pain Tendonitis of shoulder, right Tobacco abuse (06/05/14) Surgical History Surgical History Colonoscopy - MAC (06/24/18) Dr Heath, results - diverticulitis, repeat 10 years H/O colectomy History of total left knee replacement (02/13/20) S/P laparoscopic-assisted sigmoidectomy S/P left knee arthroscopy Status post excisional biopsy Left eye (skin lesion) Tobacco Smoking/Tobacco Use Status: Current-Occasional Tobacco Type: cigarettes Smoking cigarettes per day: 10 Alcohol Alcohol Intake: current Alcohol intake frequency: a few times a week Alcohol type: beer and wine Substance Use Substance use: Never Substance use type: does not use Prental History History 2 Para 2 Hx # Term Pregnancies Multiple births Hx # Pregnancies Ectopic pregnancies AB induced Hx Number of Living Children AB spontaneous Vital Signs and Lab Results Vital Signs Most Recent Vital Signs in EMR: Most Recent Vital Signs Temp Pulse Resp BP Pulse Ox 36.8 C 76 16 122/91 H 99 01/29/23 06:06 01/29/23 06:06 01/29/23 06:06 01/29/23 06:06 01/29/23 06:06 Lab Results Blood Type / Crossmatch: No Data to Display Complete Blood Count: No Data to Display Complete Metabolic Panel: No Data to Display Liver Function Panel: No Data to Display Coagulation Panel: No Data to Display Cardiac Panel: No Data to Display Arterial Blood Gas: No Data to Display Venous Blood Gas: No Data to Display Pancreas Panel: No Data to Display Thyroid Panel: No Data to Display Infectious Disease: No Data to Display Blood Cultures: No Data to Display Toxicology Panel: No Data to Display Anesthesia Assessment and Plan Anesthesia History Personal History: No History of Anesthesia Complications Family History: No Family History of Anesthesia Complications Exercise Tolerance Exercise Tolerance: Metabolic Equivalents>4 Pertinent Negatives Pertinent Negatives: No Symptoms of GERD, No Major Cardiovascular Symptoms or Complaints and No Major Pulmonary Symptoms or Complaints Cardiac & Pulmonary Exam Cardiac Exam: Normal S1/S2 Heart Sounds Pulmonary Exam: Clear Bilateral Breath Sounds Implantable Cardiac Device Does patient have a Pacemaker or an ICD?: No Airway Exam Known Difficult Airway: No Mallampati Class: 3 Mouth Opening: Narrow (< 3cm) Thyromental Distance: Greater than 3 cm Neck Range of Motion: Full ROM Neck Circumference: Normal Teeth Condition: Normal Dentition ASA Classification ASA Score: ASA 2 Emergency Case?: No NPO Status NPO Status: NPO Clears >2 hours, Solids >8 hours Anesthesia Plan Resuscitation Status: Full Code Anesthesia Technique: General Anesthesia Airway Planned: Natural Airway Monitors Used: Standard Monitors
[2023-01-29 07:08] VITALS: BMI 30.5
--- NOTE | 2023-01-29 07:15 | W.PM.HP.N ---
Date of service: 01/29/23 Time of Service: 07:15 Assessment and Plan Assessment and plan (1) Diverticula of colon: Status: Acute Assessment and plan: Plan: Colonoscopy w/ general & natural airway. Informed consent is obtained for the procedural (explained in simple layman's terms that?the pt and/or family could understand) explaining risks vs benefits and alternatives to the procedure and consequences if we do not do the procedure and need/rational for the procedure. Risks include but are not limited to: bleeding, infection, perforation of colon.? This would necessitate emergency surgery to repair the damage w/ possible ostomy; and other associated complications w/ the required surgery. ? Also complications of anesthesia including aspiration, SD/CVA/, inability to complete the procedure. I discussed with the?patient would they could expect during the procedure, post procedure and recovery time and risks.? The patient understands that they need to have a ride home after the procedure.? The patient was given all this information in writing and expressed understanding. If there are any questions or concerns please feel free to contact our office.? Generally Colonoscopy does not require antibiotics prophylaxis, History of Present Illness Narrative: Patient is here today for for a colonoscopy following a recent episode of diverticulitis. Patient is here today for colonoscopy.??? They completed a bowel prep with just a clear yellow residual effluent.? They not having any chest pain or shortness of breath, currently.? They are not experiencing any fever or chills.? They deny any productive cough or upper respiratory tract infection signs or symptoms.? They are not having abdominal pain, or nausea and vomiting.? They have not had any changes in medications, past medical history or past surgical history since previously being seen in the office. They have not had any accidents or have been in the ER since the clinic pre-operative evaluation. ??I reviewed the procedure with the patient today, including risks and benefits of the procedure, and what they could expect at home for recovery.? All questions are answered to the patient?s satisfaction today, and they are stable to proceed with the proposed procedure. Review of Systems All systems reviewed & are unremarkable except as noted in HPI and below PFSH All Active Problems Diverticula of colon (Acute) Insertional Achilles tendinopathy (Acute) S/P Debridement: 12/09/2021 Sensorineural hearing loss (SNHL) of left ear with restricted hearing of right ear (Acute) Tinnitus (Acute) bilateral high-pitched continuous nonpulsatile. Symmetric normal hearing. Hypertension (Acute) Rash in adult (Acute) Medical History Arthritis of left knee Basal cell carcinoma (12/16/15) left lower eyelid Diverticulitis of large intestine without perforation or abscess with bleeding (04/20/18) Elevated alkaline phosphatase measurement Unclear if there is any clinical significance to the persistently elevated alkaline phosphatase. She has no particular symptoms today. Reasonable to recheck it in about 6 months. If it remains elevated at that time, we can consider checking a bone isoenzyme. 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) Right shoulder pain Tendonitis of shoulder, right Tobacco abuse (06/05/14) Surgical History Colonoscopy - MAC (06/24/18) Dr Heath, results - diverticulitis, repeat 10 years H/O colectomy History of total left knee replacement (02/13/20) S/P laparoscopic-assisted sigmoidectomy S/P left knee arthroscopy Status post excisional biopsy Left eye (skin lesion) Family History Mother Diabetes Stroke Hypertension Father Lymphoma Brother Myocardial infarction Brother Brain tumor Social History Smoking/Tobacco Use Status: Current-Occasional Tobacco Type: cigarettes Tobacco: How many years used: 20 Smoking risk assessment performed?: Yes Alcohol Intake: current Alcohol Intake frequency: a few times a week Alcohol type: beer and wine Drug use: Never Substance use type: does not use Household members: none Housing: house Number of Children: 2 current occupation: [employer] Current gender identity: female What is your relationship status?: Panel score (0-1 are the most socially isolated patients): 0 What type of physical activity do you participate in: regular exercise and other Details: physically active daily Seatbelt use: always Drive intox or ride w/intox lifter/driver: No Working smoke detector in home: Yes Fire extinguisher in home: Yes Carbon monox detector in home: Yes Do you feel safe at home: Yes (Lives alone) Do you feel safe in your relationship?: Yes Female Reproductive History Menstrual Menopause type: natural (2013) History History 2 Para 2 Hx # Term Pregnancies Multiple births Hx # Pregnancies Ectopic pregnancies AB induced Hx Number of Living Children AB spontaneous Meds Allergies and Home Medications Allergies Allergy/AdvReac Type Severity Reaction Status Date / Time gabapentin Allergy Severe coughing, Verified 01/29/23 06:17 swallowing issues, tongue swelling bacitracin Allergy Intermediate Skin Rash Verified 01/29/23 06:17 Sulfa (Sulfonamide Allergy RASH, Verified 01/29/23 06:17 Antibiotics) DIFFICULTY BREATHING atorvastatin [From Lipitor] AdvReac Severe coughing Verified 01/29/23 06:17 tramadol AdvReac rash from Verified 01/29/23 06:17 head to toe Home Medications Medication Instructions Recorded Confirmed Type rosuvastatin 5 mg tablet 5 mg PO DAILY #90 tabs 02/05/20 01/29/23 Rx lactobacillus combination no.9 4 4,000 mmu cells PO DAILY 06/14/20 01/29/23 History billion cell capsule (Adult 50 Plus Probiotic) losartan 25 mg tablet 25 mg PO DAILY #90 tab-caps 01/02/21 01/29/23 Rx calcium citrate 250 mg 1 tab PO DAILY 12/09/21 01/29/23 History calcium-vitamin D3 5 mcg (200 unit) tablet Exam Narrative Exam Narrative: PHYSICAL EXAM GENERAL APPEARANCE: Alert, healthy appearance, oriented, x 3,? in no acute distres HEAD, EYES, EARS, NECK, THROAT: Head is normocephalic, pupils equal, round, reactive to light and accommodation, ocular movement intact, sclera clear and no jaundice. ?Dentition intact. LUNGS: normal respiration/normal chest excursion. ?Clear to auscultation bilaterally. ?No wheeze. ?HEART: Regular rate and rhythm. no murmurs ABDOMEN: soft and non-tender to palpation.? Normal bowel sounds.? No hernias.? Results Last Vital Signs Temp 36.8 C 01/29/23 06:06 Pulse 76 01/29/23 06:06 Resp 16 01/29/23 06:06 BP 122/91 H 01/29/23 06:06 Pulse Ox 99 01/29/23 06:06 Anemia profile Hgb 14.6 g/dL (11.2-15.7) 11/02/22 Hct 42.7 % (36.0-46.0) 11/02/22 MCV 89 fL (80-95) 11/02/22 RDW 11.9 % (11.7-14.6) 11/02/22 Basic Metabolic Sodium 135 mmol/L (136-145) L 10/29/22 Potassium 4.1 mmol/L (3.5-5.1) 10/29/22 Chloride 101 mmol/L (98-107) 10/29/22 Carbon Dioxide 25.9 mmol/L (21.0-32.0) 10/29/22 BUN 12 mg/dL (7-18) 10/29/22 Creatinine 0.8 mg/dL (0.55-1.02) 10/29/22 Estimated GFR/1.73 m2 >= 60.00 (mL/min/1.73m2) 02/20/22 Glucose 116 mg/dL (74-106) H 10/29/22 CBC White Blood Count 7.13 10^3/uL (4.4-10.8) 11/02/22 Red Blood Count 4.80 10^6/uL (3.93-5.22) 11/02/22 Hemoglobin 14.6 g/dL (11.2-15.7) 11/02/22 Hematocrit 42.7 % (36.0-46.0) 11/02/22 Mean Corpuscular Volume 89 fL (80-95) 11/02/22 Mean Corpuscular Hemoglobin 30.4 pg (27.0-33.0) 11/02/22 Mean Corpuscular Hemoglobin Concent 34.2 % (32.0-36.0) 11/02/22 Red Cell Distribution Width 11.9 % (11.7-14.6) 11/02/22 Platelet Count 330 10^3/uL (130-400) 11/02/22 Mean Platelet Volume 10.4 fL (8.0-11.0) 11/02/22 Neutrophils % 68.0 11/02/22 Lymphocytes % 22.0 11/02/22 Monocytes % 7.6 11/02/22 Eosinophils % 1.4 11/02/22 Basophils % 0.6 11/02/22 Immature Granulocytes % 0.4 11/02/22 Comprehensive Metabolic Panel Sodium 135 mmol/L (136-145) L 10/29/22 07: Potassium 4.1 mmol/L (3.5-5.1) 10/29/22 07: Chloride 101 mmol/L (98-107) 10/29/22 07:23 Carbon Dioxide 25.9 mmol/L (21.0-32.0) 10/29/22 07: BUN 12 mg/dL (7-18) 10/29/22 07: Creatinine 0.8 mg/dL (0.55-1.02) 10/29/22 07: Estimated GFR/1.73 m2 >= 60.00 (mL/min/1.73m2) 02/20/22 07:23 Glucose 116 mg/dL (74-106) H 10/29/22 07: Calcium 9.2 mg/dL (8.5-10.1) 10/29/22 07:23 Conjugated Bilirubin 0.11 mg/dL (0.00-0.20) 06/13/18 07:45 Total Bilirubin 0.8 mg/dL (0.2-1.0) 10/29/22 07:23 ALT 49 U/L (14-59) 10/29/22 07:23 AST 31 U/L (15-37) 10/29/22 07:23 Alkaline Phosphatase 149 U/L (46-116) H 10/29/22 07:23 Total Protein 8.2 g/dL (6.4-8.2) 10/29/22 07:23 Albumin 4.1 g/dL (3.4-5.0) 10/29/22 07:23 Diabetes results Glucose 116 mg/dL (74-106) H 10/29/22 Total Cholesterol 169 mg/dL (<200) 02/20/22 LDL Cholesterol, Calc 58 mg/dL (<100) 02/20/22 LDL Cholesterol Direct 79 mg/dL (<100) 06/13/18 HDL Cholesterol 42 mg/dL (40-60) 02/20/22 Triglycerides 345 mg/dL (<150) H 02/20/22 BUN 12 mg/dL (7-18) 10/29/22 Creatinine 0.8 mg/dL (0.55-1.02) 10/29/22 Estimated GFR/1.73 m2 >= 60.00 (mL/min/1.73m2) 02/20/22 Est GFR (CKD-EPI 2020) 84.82 (mL/min/1.73m2) 10/29/22 Sodium 135 mmol/L (136-145) L 10/29/22 Potassium 4.1 mmol/L (3.5-5.1) 10/29/22 Chloride 101 mmol/L (98-107) 10/29/22 Carbon Dioxide 25.9 mmol/L (21.0-32.0) 10/29/22 Calcium 9.2 mg/dL (8.5-10.1) 10/29/22 AST 31 U/L (15-37) 10/29/22 ALT 49 U/L (14-59) 10/29/22 Total Protein 8.2 g/dL (6.4-8.2) 10/29/22 Albumin 4.1 g/dL (3.4-5.0) 10/29/22 Lipid profile Total Cholesterol 169 mg/dL (<200) 02/20/22 HDL Cholesterol 42 mg/dL (40-60) 02/20/22 LDL Cholesterol, Calc 58 mg/dL (<100) 02/20/22 LDL Cholesterol Direct 79 mg/dL (<100) 06/13/18 Triglycerides 345 mg/dL (<150) H 02/20/22 Stool tests (SJP) No Data to Display Thyroid results Thyroid Dysfunction Results: No Data to Display Tick borne Illnesses No Data to Display Time Spent Time spent with Patient: <40 minutes Time was spent: preparing to see the patient(eg.review tests), obtaining and/or reviewing separately otained hiistory, ordering medications,tests, procedures, referring, communicating with other health progressive care unit registered nurse, indepentently interpreting results, counseling the patient and care coordination
--- NOTE | 2023-01-29 07:59 | BOWEL_PTH ---
PATIENT: Debora Montgomery LOC: [facility] U#:[id number] AGE/SX: 62/F ROOM: RE01/29/[address]: Mariana Casrto : 1960 BED: DIS: 01/29/2023 SPEC #: [id number] RECD: 01/29/23 12:34 STATUS: SAVANAH REQ #: [id number] LIZABETH: 01/29/23 07:[address]: Mariana Castro DEPT: Surgical Specimen RECD BY: Sandra Talley ENTERED: 01/29/23 12:36 SP TYPE: Bowel OTHR DR: Sissy Belcher Tissues: 1 - BIOPSY BOWEL Procedures: GROSS AND MICRO LEVEL 4 Comments: [id number]
[2023-01-29 08:05] VITALS: BP 113/76; PULSE 66; RESP 16; TEMP 36.6; O2SAT 97
[2023-01-29 08:32] VITALS: BP 123/86; PULSE 80; RESP 16; TEMP 36.6; O2SAT 96
--- NOTE | 2023-01-29 09:07 | W.ANESPOSTOP ---
Postoperative Evaluation Date, Time and Location Date Performed: 01/29/23 Time Performed: 08:35 Patient Location: Day Surgery Unit Vital Signs Most Recent Imported Vital Signs: Most Recent Vital Signs Temp Pulse Resp BP Pulse Ox 36.6 C 80 16 123/86 96 01/29/23 08:32 01/29/23 08:32 01/29/23 08:32 01/29/23 08:32 01/29/23 08:32 Pain Score Most Recent Pain Score: Most Recent Pain Score Pain Level 0 01/29/23 08:32 Assessment Mental Status: Awake (Alert & Oriented to Patient Baseline) Airway and Respiratory Function: Patent airway with normal (patient baseline) respiratory exam Cardiovascular Function: Hemodynamically Stable Hydration Status: Adequately Hydrated Nausea & Vomiting: No Nausea or Vomiting Pain: Pt. Denies Any Pain Peripheral Nerve Block: Patient did not receive a nerve block
--- NOTE | 2023-01-29 21:47 | COLE_ITS ---
Date of service: 01/29/23 Time of Service: 08:00 Colonoscopy Report Date of procedure: 01/29/23 Pre-op diagnosis general: Recurrent diverticulosis Post-op diagnosis procedure note: other (Pandiverticulosis-very mild) Surgeon: Mariana Castro Anesthesia Type: General:No Airway Estimated blood loss (mL): 1 Pathology: other Complications: None Disposition: same day Prep: Miralax/Dulcolax Retraction Time: 10 Procedure Description: After informed consent was obtained the patient was taken to the procedure room and placed in a left decubitous position. Monitors were applied and a time out was done. The patients name, date of , procedure, allergies to medications and metal in their body was reviewed. The patient was then sedated. Once sedated and comfortable a rectal exam was done. External exam was normal. Int ernal exam revealed a normal sphincter tone and no palpable masses. The scope was then introduced and retrofelexed. No internal hemorrhoids were identified. The scope was then advanced to the cecum without difficulty. The TI and appendiceal orifice were identified. The prep was BBPS 3 in all segments for a total of 9. The scope was then slowly retracted over 10 minutes back into the rectum. No polyps were identified today. She has had a previous sigmoid resection for recurrent diverticulitis. The anastomosis is at 20 cm, It is widely patent. She does have a few very small diverticuli throughout the remainder of the colon. There is one diverticulum at the anastomosis. There is very mild amount of erythema and edema associated with this diverticulum. This is apparently where the prior infection was located. A biopsy of this area was taken. The specimen was retrieved and no bleeding was noted. The scope was removed and the patient was woken up and taken back to Same day surgery in stable condition. The patient tolerated the procedure well and there were no immediate complications. Follow up: The patient should follow up in 10 years unless they develop changes in bowel habits or other new gastrointestinal complaints.
== END 2023-01-29 08:50 | disposition home or self-care (01) ==
PROVIDERS: PCP Nurse Practitioner Family; Visit Provider Surgery
PROC: 0DJD8ZZ Inspection of Lower Intestinal Tract, Via Natural or Artificial Opening Endoscopic (ICD-10-PCS; CPT 45378; principal; 2023-01-29 07:30)
DX: K57.30 Diverticulosis of large intestine without perforation or abscess without bleeding (principal); I10 Essential (primary) hypertension; Z98.0 Intestinal bypass and anastomosis status; Z90.49 Acquired absence of other specified parts of digestive tract
CPT/HCPCS: 45380; 88305

== ENCOUNTER 2023-02-24 12:32 | Outpatient (CLI) | payer OTHER, SELFPAY ==
[2023-02-24 11:50] LABS: Anion Gap 8.1 mmol/L (3-11); BUN 17 mg/dL (7-18); CO2 24.9 mmol/L (21.0-32.0); Calcium 9.1 mg/dL (8.5-10.1); Calculated LDL 39 mg/dL (<100); Chloride 105 mmol/L (98-107); Cholesterol 166 mg/dL (<200); Estimated GFR 64.49 (mL/min/1.73m2); Glucose 106 mg/dL (74-106); HDL Cholesterol 49 mg/dL (40-60); Potassium 3.9 mmol/L (3.5-5.1); Sodium 138 mmol/L (136-145); Triglyceride 393 mg/dL (<150)
[2023-02-24 12:10] LABS: Hemoglobin A1C 5.4 % (<5.7)
[2023-02-24 15:05] LABS: TSH (W/Ref FT4) 1.33 uIU/mL (0.36-3.74)
== END 2023-02-24 12:33 | disposition home or self-care (01) ==
LOC: LBO 12:34
PROVIDERS: PCP Nurse Practitioner Family; Visit Provider Nurse Practitioner Family
DX: Z00.00 Encounter for general adult medical examination without abnormal findings (principal); E78.5 Hyperlipidemia, unspecified; I10 Essential (primary) hypertension
CPT/HCPCS: 36415; 80048; 80061; 83036; 84443

== ENCOUNTER 2024-03-02 04:29 | Outpatient (CLI) | payer MEDICAID, SELFPAY ==
[2024-03-02 13:02] LABS: ALT 34 U/L (14-59); AST 22 U/L (15-37); Alkaline Phosphatase 132 U/L (46-116); Anion Gap 11.1 mmol/L (3-11); BUN 15 mg/dL (7-18); Bilirubin, Total 0.4 mg/dL (0.2-1.0); CO2 24.9 mmol/L (21.0-32.0); CREATININE 0.7 mg/dL (0.55-1.02); Calcium 8.7 mg/dL (8.5-10.1); Calculated LDL 76 mg/dL (<100); Chloride 106 mmol/L (98-107); Cholesterol 158 mg/dL (<200); Estimated GFR 98.34 (mL/min/1.73m2); Glucose 100 mg/dL (74-106); HDL Cholesterol 58 mg/dL (40-60); Potassium 4.2 mmol/L (3.5-5.1); Sodium 142 mmol/L (136-145); Total Protein 7.6 g/dL (6.4-8.2); Triglyceride 121 mg/dL (<150); Vitamin D 25 Total 27.1 ng/mL (30-100)
== END 2024-03-02 04:30 | disposition home or self-care (01) ==
LOC: LOS 04:29
PROVIDERS: PCP Nurse Practitioner Family; Visit Provider Nurse Practitioner Family
DX: E78.5 Hyperlipidemia, unspecified (principal); M85.89 Other specified disorders of bone density and structure, multiple sites
CPT/HCPCS: 36415; 80053; 80061; 82306

== ENCOUNTER 2024-03-10 15:46 | Outpatient (REF) | payer MEDICAID, SELFPAY ==
--- NOTE | 2024-03-10 08:00 | PAPFT_PTH ---
PATIENT: Debora Montgomery LOC: [facility]#:[id number] AGE/SX: 63/F ROOM: RE03/10/[address]: Sissy Belcher : 1960 BED: DIS: 03/10/2024 SPEC #: [id number] RECD: 03/10/24 17:39 STATUS: SAVANAH REMorena #: [id number] LIZABETH: 03/10/24 08:[address]: Sissy Belcher DEPT: [facility] Cytology RECD BY: Sandra Talley Tissues: 1 - CX/ENDOCX FOR PAP SMEARS Procedures: PAP THIN PREP/UVM Screening HPV DNA PROBE Comments: [id number]
== END 2024-03-10 15:47 | disposition home or self-care (01) ==
LOC: NCHCN 15:46
PROVIDERS: PCP Nurse Practitioner Family; Visit Provider Nurse Practitioner Family
DX: Z11.51 Encounter for screening for human papillomavirus (HPV) (principal); Z01.419 Encounter for gynecological examination (general) (routine) without abnormal findings
CPT/HCPCS: 88142; 87624

== ENCOUNTER → 2024-04-03 03:19 | Outpatient (CLI) | payer MEDICAID, SELFPAY ==
--- NOTE | 2024-04-03 | DI.CTLCSR_ITS ---
Exam(s) CT CHEST LUNG CANCER SCREEN EXAM: CT CHEST LUNG CANCER SCREEN CLINICAL HISTORY: NICOTINE DEPENDENCE, F17.210 TECHNIQUE: Imaging Protocol: Axial computed tomography images with coronal and sagittal reformatted images were created and reviewed COMPARISON: CT CT CHEST LUNG CANCER SCREEN from 03/24/2023 FINDINGS: Tracheobronchial tree: Patent where visualized. Mediastinum and Chacha: No dominant adenopathy or fluid collection. The esophagus is unremarkable. Pulmonary parenchyma: No consolidation or dominant measurable mass. No architectural distortion. Lung Nodules: 3 mm nodule in the lateral aspect of the right upper lobe (series 3, image 162). There is a new 3 mm nodule associated just above the right minor fissure (series 3, image 227).) Pleura: No effusion or pneumothorax. Heart: The heart is not dilated. Coronary artery calcifications are present. No significant pericard ial effusion is seen. Aorta: Thoracic aorta non-dilated.Atherosclerotic calcifications are present. Upper abdomen: There is fatty replacement of the pancreas. Bones: Within normal limits. Soft Tissues: Unremarkable. IMPRESSION: New 3 mm nodule in the right upper lobe adjacent to the right minor fissure. Stable 3 mm right upper lobe nodule. Lung RADS Cat 2 - Benign Appearance / Behavior: Nodules with a very low likelihood of becoming a clin ically active cancer due to size or lack of growth Lung-RADS 1.0 CATEGORIES: Category 0 - Prior chest CT exam(s) being located for comparison. Category 1 - Annual screening in 12 months. No nodules or definitely benign nodules. Category 2 - Annual screening in 12 months. Benign appearance. Nodules with low likelihood of becomin g active cancer. Category 3 - 6-month follow-up. Probably benign. Short-term follow-up suggested. Nodules with low lik elihood of becoming active cancer. Category 4A - 3-month follow-up and CT/PET if >8 mm in size. Suspicious finding. Findings which requi re additional testing. Category 4B - Findings which require additional testing and tissue sampling. Category 4X - Category 3 or 4 nodules with additional features or imaging findings that increases the suspicion of malignancy. Modifier S- Potentially clinically significant findings (non lung cancer) RADIATION DOSE DELIVERED: 68.93mGy.cmTotal DLP DATA REPOSITORY: All CT scans at this facility are submitted to the National Radiology Data Registry (NRDR) Dose Index Registry (DIR) with the [employer] (ACR). RADIATION OPTIMIZATION: All CT scans at this facility use at least one of these dose optimization te chniques: automated exposure control; mA and/or kV adjustment per patient size (includes targeted exa ms where dose is matched to clinical indication); or iterative reconstruction.
== END ==
PROVIDERS: PCP Nurse Practitioner Family; Visit Provider Nurse Practitioner Family
DX: F17.210 Nicotine dependence, cigarettes, uncomplicated (principal)
CPT/HCPCS: 71271

== ENCOUNTER 2024-06-22 01:36 | Outpatient (CLI) | payer MEDICAID, SELFPAY ==
--- NOTE | 2024-06-22 | DI.DEXA_ITS ---
Exam(s) XR DEXA BONE DENSITY W/WO NAGA EXAM: XR DEXA BONE DENSITY W/WO NAGA CLINICAL HISTORY: ASYMPTOMATIC MENOPAUSAL STAT Z78.0 TECHNIQUE: Construct C densitometer analysis of left hip, lumbar spine and left forearm. Lat eral survey image of the thoracic and lumbar spine. COMPARISON: CR XR DEXA BONE DENSITY W/WO NAGA from 02/28/[address] CHEST LUNG CANCER SCREEN from 04/03/2024 FINDINGS: Lateral view of the thoracic and lumbar spine shows no evidence of compression fractures. Bone mineral density measurements of the lumbar spine correspond to a total T-score of 0.4, in the n ormal range. This represents a 5.2 percent increase from 202 Bone mineral density measurements of the left hip correspond to a total T-score of -0.3. This repre sents a 3.3 percent increase from 2020. The femoral neck T-score is -1.8, in the osteopenic range. Theleft forearm bone mineral density measurements correspond to a T-score of the distal 3rd of -1.2, in the osteopenic range. This is not significantly changed from prior. IMPRESSION: Normal bone mineral density of the spine. Osteopenia of the hip and spine.
--- NOTE | 2024-06-22 15:20 | DI.MAMMO_ITS ---
Exam(s) MAMMO SCREENING EXAM: MAMMO SCREENING CLINICAL HISTORY: SCREENING MAMMO Z12.31. TECHNIQUE: Bilateral full field digital CC and MLO mammographic images were obtained with 3D tomosyn thesis and utilizing computer aided detection (CAD). COMPARISON: Prior mammograms were reviewed. FINDINGS: There has been no significant change in the appearance and distribution of the fibroglandular tissue. No CAD designations. There are no new spiculated masses nor malignant appearing microcalcification groups. There is no significant architectural distortion nor skin thickening-retraction. IMPRESSION: No radiographic evidence of malignancy. BI-RADS Category 1 - Negative Breast Density - Category B - Scattered areas of fibroglandular density Breast density Category C or D implies that the patient has dense breast tissue. Dense breast tissue can make it harder to find cancer on a mammogram. Dense breast tissue is also associated with an incr eased risk of breast cancer. This information about the result of the mammogram report was provided to the patient to raise their awareness. Use this report when you speak with the patient about their risks for breast cancer, which includes their family history. At that time, you may recommend additional screening tests (Ultrasoun d or MRI) as these tests may add significant information. A negative radiographic report should not delay biopsy if a dominant or clinically suspicious mass is present. Up to ten percent of cancers are not identified on mammography. A negative report may reinforce clinical impression. Adenosis and dense breasts may obscure an underlying neoplasm. False positive reports average 6 to 10%. Patient will receive a letter notifying them of these results.
== END 2024-06-22 01:56 ==
LOC: DI 01:36
PROVIDERS: PCP Nurse Practitioner Family; Visit Provider Nurse Practitioner Family
DX: Z12.31 Encounter for screening mammogram for malignant neoplasm of breast (principal); Z13.820 Encounter for screening for osteoporosis; M85.89 Other specified disorders of bone density and structure, multiple sites
CPT/HCPCS: 77063; 77067; 77080

== ENCOUNTER 2024-10-17 03:50 | Outpatient (CLI) | payer MEDICAID, SELFPAY ==
[2024-10-17 08:42] LABS: Calculated LDL 42 mg/dL (<100); Cholesterol 125 mg/dL (<200); HDL Cholesterol 59 mg/dL (40-60); Triglyceride 123 mg/dL (<150)
== END 2024-10-17 03:51 | disposition home or self-care (01) ==
LOC: LBO 03:50
PROVIDERS: PCP Nurse Practitioner Family; Visit Provider Nurse Practitioner Family
DX: E78.1 Pure hyperglyceridemia (principal); E78.5 Hyperlipidemia, unspecified
CPT/HCPCS: 36415; 80061

== ENCOUNTER 2025-07-02 03:28 | Outpatient (CLI) | payer MEDICAID, SELFPAY ==
--- NOTE | 2025-07-02 15:03 | DI.MAMMO_ITS ---
Exam(s) MAMMO SCREENING EXAM: MAMMO SCREENING CLINICAL HISTORY: screening,[facility],z00.00. TECHNIQUE: Bilateral full field digital CC and MLO mammographic images were obtained with 3D tomosynthesis and utilizing computer aided detection (CAD). COMPARISON: Prior mammograms were reviewed. FINDINGS: There has been no significant change in the appearance and distribution of the fibroglandular tissue. Asymmetric tissue bilaterally is unchanged. There are no CAD designations. There are no new spiculated masses nor malignant appearing microcalcification groups. There is no significant architectural distortion nor skin thickening-retraction. IMPRESSION: No radiographic evidence of malignancy. BI-RADS Category 1 - Negative Breast Density - Category B - There are scattered areas of fibroglandular density. Breast density Category C or D implies that the patient has dense breast tissue. Dense breast tissue can make it harder to find cancer on a mammogram. Dense breast tissue is also associated with an increased risk of breast cancer. This information about the result of the mammogram report was provided to the patient to raise their awareness. Use this report when you speak with the patient about their risks for breast cancer, which includes their family history. At that time, you may recommend additional screening tests (Ultrasound or MRI) as these tests may add significant information. A negative radiographic report should not delay biopsy if a dominant or clinically suspicious mass is present. Up to ten percent of cancers are not identified on mammography. A negative report may reinforce clinical impression. Adenosis and dense breasts may obscure an underlying neoplasm. False positive reports average 6 to 10%. Patient will receive a letter notifying them of these results.
--- NOTE | 2025-07-02 15:12 | DI.CTLCSR_ITS ---
Exam(s) CT CHEST LUNG CANCER SCREEN EXAM: CT CHEST LUNG CANCER SCREEN CLINICAL HISTORY: Screening for lung cancer,z12.2 TECHNIQUE: Imaging Protocol: Axial computed tomography images with coronal and sagittal reformatted images were created and reviewed. Low dose screening protocol. COMPARISON: CT CT ABDOMEN PELVIS W from 10/29/[address] CHEST LUNG CANCER SCREEN from 04/03/2024 FINDINGS: Tracheobronchial tree: No bronchiectasis or mucus plugging. Mediastinum and [place]: No dominant adenopathy or fluid collection. Pulmonary parenchyma: No consolidation or dominant measurable mass. Mild emphysematous changes. No significant interstitial changes. Lung Nodules: No nodules are identified. The previously noted tiny right-sided nodules are not apparent on the current exam. Pleura: No effusion. No pneumothorax. Heart: The heart is not dilated. Minimal coronary artery calcifications are seen. No pericardial effusion. Aorta: Thoracic aorta non-dilated. Upper abdomen: No acute findings. Stable left adrenal thickening. Fatty replacement of the pancreas. Bones: Degenerative changes in the thoracic spine with prominent endplate osteophytes. Soft Tissues: Unremarkable. IMPRESSION: No suspicious pulmonary nodules. Lung RADS Cat 1 - Negative: No nodules and definitely benign nodules Lung-RADS 1.0 CATEGORIES: Category 0 - Prior chest CT exam(s) being located for comparison. Category 1 - Annual screening in 12 months. No nodules or definitely benign nodules. Category 2 - Annual screening in 12 months. Benign appearance. Nodules with low likelihood of becoming active cancer. Category 3 - 6-month follow-up. Probably benign. Short-term follow-up suggested. Nodules with low likelihood of becoming active cancer. Category 4A - 3-month follow-up and CT/PET if >8 mm in size. Suspicious finding. Findings which require additional testing. Category 4B - Findings which require additional testing and tissue sampling. Category 4X - Category 3 or 4 nodules with additional features or imaging findings that increases the suspicion of malignancy. Modifier S- Potentially clinically significant findings (non lung cancer) RADIATION DOSE DELIVERED: Total DLP DATA REPOSITORY: All CT scans at this facility are submitted to the National Radiology Data Registry (NRDR) Dose Index Registry (DIR) with the [employer] ([employer]). RADIATION OPTIMIZATION: All CT scans at this facility use at least one of these dose optimization techniques: automated exposure control; mA and/or kV adjustment per patient size (includes targeted exams where dose is matched to clinical indication); or iterative reconstruction.
== END 2025-07-02 03:48 ==
LOC: DI 03:28
PROVIDERS: PCP Nurse Practitioner Family; Visit Provider Nurse Practitioner Family
DX: Z12.31 Encounter for screening mammogram for malignant neoplasm of breast (principal); Z12.2 Encounter for screening for malignant neoplasm of respiratory organs
CPT/HCPCS: 71271; 77063; 77067